=== PATIENT | male | born 1970 | race Caucasian/White ===

== ENCOUNTER 2019-02-04 20:30 | Inpatient (IN) | payer OTHER ==
[~2019-02-04] VITALS: Ht 182.9 cm; Wt 111.6 kg
--- OUTSIDE RECORDS SUMMARY | 2019-02-04 20:36 | XMS REPORT | Clinical Summary ---
Author Author [facility] Address Unknown Phone Unavailable Care Team Providers Care Senior Mortgage Underwriter Name Role Phone Juvenal Forde MD PCP Allergies Not on File Medications Not on file Active Problems Not on file Encounters Care Team Description Date Type Specialty 09/15/2018 Emergency Emergency Medicine Doug Grant MA Referral - Kidney Txp (New MD Consult) 07/22/2018 Telephone Transplant after 02/03/2018 Social History Date Tobacco Use Types Packs/Day Years Used Never Assessed Sex Assigned at Date Recorded Not on file Industry Job Start Date Occupation Not on file Not on file Not on file Travel End Travel History Travel Start No recent travel history available. Last Filed Vital Signs Not on file Plan of Treatment Not on file Results Not on fileafter 02/03/2018 Insurance Type Payer Benefit Subscriber ID Effective Phone Address Plan / Dates Group HMO [employer] [id number] [employer] [place]UR[place] Advance Directives Patient has advance care planning documents on file. For more information, angela melton contact: Samy Duran [address] [place] [address]
--- OUTSIDE RECORDS SUMMARY | 2019-02-04 20:38 | XMS REPORT ---
Author Author [facility] Organization [facility] Address Unknown Phone Unavailable Care Team Providers Care Risk Officer Name Role Phone Unavailable Unavailable Payers Payer Name Policy Type Policy Number Effective Date Expiration Date Problems This patient has no known problems. Allergies, Adverse Reactions, Alerts Allergy Name Allergy Type Status Severity Reaction(s) Onset Date Inactive Date Treating Clinician Comments morphine DA Active [place] 2018-10-14 00:00:00 adhesive tape DA Active U 2018-10-14 00:00:00 morphine DA Active [place] 2018-03-12 00:00:00 adhesive tape DA Active U 2017-11-18 00:00:00 Medications This patient has no known medications. Results Test Description Test Time Test Comments Text Results Atomic Results Result Comments CELIAC DISEASE PANEL 2019-01-26 13:09:00 IMMUNOGLOBULIN A (test code=IGA) 303 mg/dL 90-386 Performed At: [facility] [address] [id number] Young MD Ph:[phone] At: [facility] [address] [id number] Dye MD Ph:[phone] TISSUE TRANSGLUTAMINASE IGA (test code=TTGIGAAB) <2 U/mL 0-3 Negative 0 - 3 Weak Positive 4 - 10 Positive >10 Tissue Transglutaminase (tTG) has been identified as the endomysial antigen. Studies have demonstr- ated that endomysial IgA antibodies have over 99% specificity for gluten sensitive enteropathy. AB ENDOMYSIAL IGA (test code=ENDOMAAB) Negative Negative TISSUE TRANSGLUTAMINASE IGG (test code=TTGIGGAB) <2 U/mL 0-5 Negative 0 - 5 Weak Positive 6 - 9 Positive >9 GLIADIN ANTIBODY, IGG (test code=GLIAB) 4 units 0-19 Negative 0 - 19 Weak Positive 20 - 30 Moderate to Strong Positive >30 GLIADIN ANTIBODY, IGA (test code=GLIAABA) 7 units 0-19 Negative 0 - 19 Weak Positive 20 - 30 Moderate to Strong Positive >30 [id number] 12:14:00* Test Item Value Reference Range Comments GLUBED (test code=GLUBED) 158 mg/dL 74-106 [facility] certified corking [facility] [id number] 08:32:00* Test Item Value Reference Range Comments GLUBED (test code=GLUBED) 175 mg/dL 74-106 Performed by certified corking machine operator at [facility] [id number] 20:10:00* Test Item Value Reference Range Comments GLUBED (test code=GLUBED) 138 mg/dL 74-106 [facility] certified corking machine operator [facility] [id number] 16:10:00* Test Item Value Reference Range Comments GLUBED (test code=GLUBED) 84 mg/dL 74-106 Performed by certified corking machine operator at [facility] [id number] 12:15:00* Test Item Value Reference Range Comments GLUBED (test code=GLUBED) 90 mg/dL 74-106 Performed by certified corking machine operator at [facility] [id number] 09:19:00* Test Item Value Reference Range Comments GLUBED (test code=GLUBED) 121 mg/dL 74-106 Performed by certified corking machine operator at [facility] [id number] 09:19:00* Test Item Value Reference Range Comments GLUBED (test code=GLUBED) 63 mg/dL 74-106 Performed by certified corking machine operator at [facility] [id number] 09:19:00* Test Item Value Reference Range Comments GLUBED (test code=GLUBED) 61 mg/dL 74-106 Performed by certified corking machine operator at [facility] BASIC METABOLIC [id number] 06:31:00* Test Item Value Reference Range Comments SODIUM (test code=NA) 141 mmol/L 136-145 POTASSIUM (test code=K) 4.5 mmol/L 3.5-5.1 CHLORIDE (test code=CL) 104.0 mmol/L 98-107 CARBON DIOXIDE (test code=CO2) 31.0 mmol/L 21-32 ANION GAP (test code=GAP) 10.5 10-20 GLUCOSE (test code=GLU) 64 mg/dL 74-106 BLOOD UREA NITROGEN (test code=BUN) 39 mg/dL 7-18 RESULT VERIFIED BY REPEAT ANALYSIS GLOMERULAR FILTRATION RATE (test code=GFR) 14 mL/min >=60 Estimated GFR by using Modified MDRD formula.Chronic kidney disease is defined as either kidney damageor GFR <60 mL/min/1.73 m2 for >3 months. CREATININE (test code=CREAT) 4.40 mg/dL 0.7-1.3 BUN/CREATININE RATIO (test code=BUN/CREA) 8.9 10-20 CALCIUM (test code=CA) 8.1 mg/dL 8.5-10.1 BASIC METABOLIC [id number] 05:49:00* Test Item Value Reference Range Comments SODIUM (test code=NA) 141 mmol/L 136-145 POTASSIUM (test code=K) 4.5 mmol/L 3.5-5.1 CHLORIDE (test code=CL) 104.0 mmol/L 98-107 CARBON DIOXIDE (test code=CO2) mmol/L 21-32 ANION GAP (test code=GAP) 10-20 GLUCOSE (test code=GLU) mg/dL 74-106 BLOOD UREA NITROGEN (test code=BUN) mg/dL 7-18 GLOMERULAR FILTRATION RATE (test code=GFR) mL/min >=60 CREATININE (test code=CREAT) mg/dL 0.7-1.3 BUN/CREATININE RATIO (test code=BUN/CREA) 10-20 CALCIUM (test code=CA) mg/dL 8.5-10.1 CBC W/MANUAL [id number] 05:43:00* Test Item Value Reference Range Comments WHITE BLOOD CELL (test code=WBC) 11.1 K/mm3 4.5-12.5 RED BLOOD CELL (test code=RBC) 4.05 mill/mm3 4.0-5.8 HEMOGLOBIN (test code=HGB) 12.1 gram/dL 13.0-17.5 HEMATOCRIT (test code=HCT) 36.8 % 42.0-52.0 MEAN CELL VOLUME (test code=MCV) 90.9 fL 80-98 MEAN CELL HGB (test code=MCH) 29.9 picogram 27.0-33.0 MEAN CELL HGB CONCETRATION (test code=MCHC) 32.9 gram/dL 33.0-36.0 RED CELL DISTRIBUTION WIDTH (test code=RDW) 13.4 % 11.6-16.2 RED CELL DISTRIBUTION WIDTH SD (test code=RDW-SD) 44.3 fL 37.0-51.0 PLATELET COUNT (test code=PLT) 134 K/mm3 150-450 MEAN PLATELET VOLUME (test code=MPV) 9.2 fL 6.7-11.0 IMMATURE GRANULOCYTE % (test code=IG%) 0.2 % 0.0-5.0 NUCLEATED RBC % (test code=NRBC%) 0.0 % 0-0 NEUTROPHIL # (test code=NT#) 3.13 K/mm3 1.8-7.7 IMMATURE GRANULOCYTE # (test code=IG#) 0.02 x10 3/uL 0-0.03 LYMPHOCYTE # (test code=LY#) 6.44 K/mm3 1.0-5.0 MONOCYTE # (test code=MO#) 0.85 K/mm3 0-0.8 EOSINOPHIL # (test code=EO#) 0.59 K/mm3 0.0-0.5 BASOPHIL # (test code=BA#) 0.09 K/mm3 0.0-0.2 NUCLEATED RBC # (test code=NRBC#) 0.00 K/mm3 0.0-0.1 MANUAL DIFF REQUIRED (test code=MDIFF) YES STAIN ACCEPTABILITY (test code=STN ACCEPTABLE) STAIN ACCEPTABLE TOTAL CELLS COUNTED (test code=TCC) 112 #CELLS SEGMENTED NEUTROPHILS (test code=SEG) 37.5 % 39-69 BAND NEUTROPHIL (test code=BAND) 0 % 0-10 LYMPHOCYTE (test code=LYMPH) 44.6 % 25-55 REACTIVE LYMPH (test code=RELYMPH) 0 % MONOCYTE (test code=MON) 3.6 % 0-10 EOSINOPHIL (test code=EOS) 13.4 % 0.0-5.0 BASOPHIL (test code=BASO) 0.9 % 0-1.0 METAMYELOCYTE (test code=META) 0 % 0-0 MYELOCYTE (test code=MYELO) 0 % 0.0-0.0 PROMYELOCYTE (test code=PROM) 0 % 0-0 MORPHOLOGY COMMENT (test code=MOC) NORMAL PLATELET ESTIMATE (test code=PLTEST) ADEQUATE PLATELET MORPHOLOGY (test code=PLTMORPH) NORMAL IMMATURE FORMS (test code=IMMAT) 0 % 0-0 CBC W/MANUAL [id number] 05:11:00* Test Item Value Reference Range Comments WHITE BLOOD CELL (test code=WBC) 11.1 K/mm3 4.5-12.5 RED BLOOD CELL (test code=RBC) 4.05 mill/mm3 4.0-5.8 HEMOGLOBIN (test code=HGB) 12.1 gram/dL 13.0-17.5 HEMATOCRIT (test code=HCT) 36.8 % 42.0-52.0 MEAN CELL VOLUME (test code=MCV) 90.9 fL 80-98 MEAN CELL HGB (test code=MCH) 29.9 picogram 27.0-33.0 MEAN CELL HGB CONCETRATION (test code=MCHC) 32.9 gram/dL 33.0-36.0 RED CELL DISTRIBUTION WIDTH (test code=RDW) 13.4 % 11.6-16.2 RED CELL DISTRIBUTION WIDTH SD (test code=RDW-SD) 44.3 fL 37.0-51.0 PLATELET COUNT (test code=PLT) 134 K/mm3 150-450 MEAN PLATELET VOLUME (test code=MPV) 9.2 fL 6.7-11.0 IMMATURE GRANULOCYTE % (test code=IG%) 0.2 % 0.0-5.0 NUCLEATED RBC % (test code=NRBC%) 0.0 % 0-0 NEUTROPHIL # (test code=NT#) 3.13 K/mm3 1.8-7.7 IMMATURE GRANULOCYTE # (test code=IG#) 0.02 x10 3/uL 0-0.03 LYMPHOCYTE # (test code=LY#) 6.44 K/mm3 1.0-5.0 MONOCYTE # (test code=MO#) 0.85 K/mm3 0-0.8 EOSINOPHIL # (test code=EO#) 0.59 K/mm3 0.0-0.5 BASOPHIL # (test code=BA#) 0.09 K/mm3 0.0-0.2 NUCLEATED RBC # (test code=NRBC#) 0.00 K/mm3 0.0-0.1 MANUAL DIFF REQUIRED (test code=MDIFF) YES STAIN ACCEPTABILITY (test code=STN ACCEPTABLE) TOTAL CELLS COUNTED (test code=TCC) #CELLS SEGMENTED NEUTROPHILS (test code=SEG) % 39-69 LYMPHOCYTE (test code=LYMPH) % 25-55 MONOCYTE (test code=MON) % 0-10 EOSINOPHIL (test code=EOS) % 0.0-5.0 CABOT RINGS (test code=CAB) MORPHOLOGY COMMENT (test code=MOC) PLATELET ESTIMATE (test code=PLTEST) PLATELET MORPHOLOGY (test code=PLTMORPH) CBC W/MANUAL [id number] 05:11:00* Test Item Value Reference Range Comments WHITE BLOOD CELL (test code=WBC) 11.1 K/mm3 4.5-12.5 RED BLOOD CELL (test code=RBC) 4.05 mill/mm3 4.0-5.8 HEMOGLOBIN (test code=HGB) 12.1 gram/dL 13.0-17.5 HEMATOCRIT (test code=HCT) 36.8 % 42.0-52.0 MEAN CELL VOLUME (test code=MCV) 90.9 fL 80-98 MEAN CELL HGB (test code=MCH) 29.9 picogram 27.0-33.0 MEAN CELL HGB CONCETRATION (test code=MCHC) 32.9 gram/dL 33.0-36.0 RED CELL DISTRIBUTION WIDTH (test code=RDW) 13.4 % 11.6-16.2 RED CELL DISTRIBUTION WIDTH SD (test code=RDW-SD) 44.3 fL 37.0-51.0 PLATELET COUNT (test code=PLT) 134 K/mm3 150-450 MEAN PLATELET VOLUME (test code=MPV) 9.2 fL 6.7-11.0 IMMATURE GRANULOCYTE % (test code=IG%) 0.2 % 0.0-5.0 NUCLEATED RBC % (test code=NRBC%) 0.0 % 0-0 NEUTROPHIL # (test code=NT#) 3.13 K/mm3 1.8-7.7 IMMATURE GRANULOCYTE # (test code=IG#) 0.02 x10 3/uL 0-0.03 LYMPHOCYTE # (test code=LY#) 6.44 K/mm3 1.0-5.0 MONOCYTE # (test code=MO#) 0.85 K/mm3 0-0.8 EOSINOPHIL # (test code=EO#) 0.59 K/mm3 0.0-0.5 BASOPHIL # (test code=BA#) 0.09 K/mm3 0.0-0.2 NUCLEATED RBC # (test code=NRBC#) 0.00 K/mm3 0.0-0.1 MANUAL DIFF REQUIRED (test code=MDIFF) YES STAIN ACCEPTABILITY (test code=STN ACCEPTABLE) TOTAL CELLS COUNTED (test code=TCC) #CELLS SEGMENTED NEUTROPHILS (test code=SEG) % 39-69 LYMPHOCYTE (test code=LYMPH) % 25-55 MONOCYTE (test code=MON) % 0-10 EOSINOPHIL (test code=EOS) % 0.0-5.0 CABOT RINGS (test code=CAB) MORPHOLOGY COMMENT (test code=MOC) PLATELET ESTIMATE (test code=PLTEST) PLATELET MORPHOLOGY (test code=PLTMORPH) CBC W/MANUAL [id number] 05:11:00* Test Item Value Reference Range Comments WHITE BLOOD CELL (test code=WBC) 11.1 K/mm3 4.5-12.5 RED BLOOD CELL (test code=RBC) 4.05 mill/mm3 4.0-5.8 HEMOGLOBIN (test code=HGB) 12.1 gram/dL 13.0-17.5 HEMATOCRIT (test code=HCT) 36.8 % 42.0-52.0 MEAN CELL VOLUME (test code=MCV) 90.9 fL 80-98 MEAN CELL HGB (test code=MCH) 29.9 picogram 27.0-33.0 MEAN CELL HGB CONCETRATION (test code=MCHC) 32.9 gram/dL 33.0-36.0 RED CELL DISTRIBUTION WIDTH (test code=RDW) 13.4 % 11.6-16.2 RED CELL DISTRIBUTION WIDTH SD (test code=RDW-SD) 44.3 fL 37.0-51.0 PLATELET COUNT (test code=PLT) 134 K/mm3 150-450 MEAN PLATELET VOLUME (test code=MPV) 9.2 fL 6.7-11.0 IMMATURE GRANULOCYTE % (test code=IG%) 0.2 % 0.0-5.0 NUCLEATED RBC % (test code=NRBC%) 0.0 % 0-0 NEUTROPHIL # (test code=NT#) 3.13 K/mm3 1.8-7.7 IMMATURE GRANULOCYTE # (test code=IG#) 0.02 x10 3/uL 0-0.03 LYMPHOCYTE # (test code=LY#) 6.44 K/mm3 1.0-5.0 MONOCYTE # (test code=MO#) 0.85 K/mm3 0-0.8 EOSINOPHIL # (test code=EO#) 0.59 K/mm3 0.0-0.5 BASOPHIL # (test code=BA#) 0.09 K/mm3 0.0-0.2 NUCLEATED RBC # (test code=NRBC#) 0.00 K/mm3 0.0-0.1 MANUAL DIFF REQUIRED (test code=MDIFF) YES STAIN ACCEPTABILITY (test code=STN ACCEPTABLE) TOTAL CELLS COUNTED (test code=TCC) #CELLS SEGMENTED NEUTROPHILS (test code=SEG) % 39-69 LYMPHOCYTE (test code=LYMPH) % 25-55 MONOCYTE (test code=MON) % 0-10 EOSINOPHIL (test code=EOS) % 0.0-5.0 MORPHOLOGY COMMENT (test code=MOC) PLATELET ESTIMATE (test code=PLTEST) PLATELET MORPHOLOGY (test code=PLTMORPH) CBC W/MANUAL [id number] 05:11:00* Test Item Value Reference Range Comments WHITE BLOOD CELL (test code=WBC) 11.1 K/mm3 4.5-12.5 RED BLOOD CELL (test code=RBC) 4.05 mill/mm3 4.0-5.8 HEMOGLOBIN (test code=HGB) 12.1 gram/dL 13.0-17.5 HEMATOCRIT (test code=HCT) 36.8 % 42.0-52.0 MEAN CELL VOLUME (test code=MCV) 90.9 fL 80-98 MEAN CELL HGB (test code=MCH) 29.9 picogram 27.0-33.0 MEAN CELL HGB CONCETRATION (test code=MCHC) 32.9 gram/dL 33.0-36.0 RED CELL DISTRIBUTION WIDTH (test code=RDW) 13.4 % 11.6-16.2 RED CELL DISTRIBUTION WIDTH SD (test code=RDW-SD) 44.3 fL 37.0-51.0 PLATELET COUNT (test code=PLT) 134 K/mm3 150-450 MEAN PLATELET VOLUME (test code=MPV) 9.2 fL 6.7-11.0 IMMATURE GRANULOCYTE % (test code=IG%) 0.2 % 0.0-5.0 NUCLEATED RBC % (test code=NRBC%) 0.0 % 0-0 NEUTROPHIL # (test code=NT#) 3.13 K/mm3 1.8-7.7 IMMATURE GRANULOCYTE # (test code=IG#) 0.02 x10 3/uL 0-0.03 LYMPHOCYTE # (test code=LY#) 6.44 K/mm3 1.0-5.0 MONOCYTE # (test code=MO#) 0.85 K/mm3 0-0.8 EOSINOPHIL # (test code=EO#) 0.59 K/mm3 0.0-0.5 BASOPHIL # (test code=BA#) 0.09 K/mm3 0.0-0.2 NUCLEATED RBC # (test code=NRBC#) 0.00 K/mm3 0.0-0.1 MANUAL DIFF REQUIRED (test code=MDIFF) YES STAIN ACCEPTABILITY (test code=STN ACCEPTABLE) TOTAL CELLS COUNTED (test code=TCC) #CELLS SEGMENTED NEUTROPHILS (test code=SEG) % 39-69 LYMPHOCYTE (test code=LYMPH) % 25-55 MONOCYTE (test code=MON) % 0-10 MORPHOLOGY COMMENT (test code=MOC) PLATELET ESTIMATE (test code=PLTEST) PLATELET MORPHOLOGY (test code=PLTMORPH) CBC W/MANUAL [id number] 05:11:00* Test Item Value Reference Range Comments WHITE BLOOD CELL (test code=WBC) 11.1 K/mm3 4.5-12.5 RED BLOOD CELL (test code=RBC) 4.05 mill/mm3 4.0-5.8 HEMOGLOBIN (test code=HGB) 12.1 gram/dL 13.0-17.5 HEMATOCRIT (test code=HCT) 36.8 % 42.0-52.0 MEAN CELL VOLUME (test code=MCV) 90.9 fL 80-98 MEAN CELL HGB (test code=MCH) 29.9 picogram 27.0-33.0 MEAN CELL HGB CONCETRATION (test code=MCHC) 32.9 gram/dL 33.0-36.0 RED CELL DISTRIBUTION WIDTH (test code=RDW) 13.4 % 11.6-16.2 RED CELL DISTRIBUTION WIDTH SD (test code=RDW-SD) 44.3 fL 37.0-51.0 PLATELET COUNT (test code=PLT) 134 K/mm3 150-450 MEAN PLATELET VOLUME (test code=MPV) 9.2 fL 6.7-11.0 IMMATURE GRANULOCYTE % (test code=IG%) 0.2 % 0.0-5.0 NUCLEATED RBC % (test code=NRBC%) 0.0 % 0-0 NEUTROPHIL # (test code=NT#) 3.13 K/mm3 1.8-7.7 IMMATURE GRANULOCYTE # (test code=IG#) 0.02 x10 3/uL 0-0.03 LYMPHOCYTE # (test code=LY#) 6.44 K/mm3 1.0-5.0 MONOCYTE # (test code=MO#) 0.85 K/mm3 0-0.8 EOSINOPHIL # (test code=EO#) 0.59 K/mm3 0.0-0.5 BASOPHIL # (test code=BA#) 0.09 K/mm3 0.0-0.2 NUCLEATED RBC # (test code=NRBC#) 0.00 K/mm3 0.0-0.1 MANUAL DIFF REQUIRED (test code=MDIFF) YES STAIN ACCEPTABILITY (test code=STN ACCEPTABLE) TOTAL CELLS COUNTED (test code=TCC) #CELLS SEGMENTED NEUTROPHILS (test code=SEG) % 39-69 LYMPHOCYTE (test code=LYMPH) % 25-55 MONOCYTE (test code=MON) % 0-10 EOSINOPHIL (test code=EOS) % 0.0-5.0 CABOT RINGS (test code=CAB) MORPHOLOGY COMMENT (test code=MOC) PLATELET ESTIMATE (test code=PLTEST) PLATELET MORPHOLOGY (test code=PLTMORPH) [id number] 20:52:00* Test Item Value Reference Range Comments GLUBED (test code=GLUBED) 143 mg/dL 74-106 [facility] certified corking machine [facility] [id number] 16:39:00* Test Item Value Reference Range Comments GLUBED (test code=GLUBED) 95 mg/dL 74-106 Performed by certified corking machine operator at [facility] - XR ABDOMEN AP 1 [id number] 11:11:00 FAX: Juvenal Holloway MD [phone] Jones: St: ADM FAX: Alvina Irvin MD [phone] Name: SYEDA POWERS [facility] : 1970 Age/S: 48/M [address] [facility] Unit #: [id number] Loc: V.4[address] [place] [address] Phys: Alvina Pike MD Acct: [id number] Dis Date: Status: ADM IN PHONE #: [phone] Exam Date: 01/22/2019 1055 FAX #: [phone] Reason: abdominal pain EXAMS: CPT CODE: [id number] XR ABDOMEN AP 1 V [id number] HISTORY: Abdominal pain. CT abdomen and pelvis from January 20, 2019. Patient is post cholecystectomy. Constipation. No bowel obstruction. No pathologic calcifications. IMPRESSI ON: No bowel obstruction. Constipation. Electronic ally Signed by Nida Velasquez on 01/22/2019 at 1111 R eported and signed by: Manish Velasquez M.D. CC: Juvenal Forde MD; Alvina Pike MD Technologist: JOSELYN VAZQUEZ RT( R) Trnscrd Date/Time/By: 01/22/2019 (1111) : By: [email or web address] Orig Print D/T: S: 01/22/2019 (1115) PAGE 1 Signed Report [id number] 08:16:00* Test Item Value Reference Range Comments GLUBED (test code=GLUBED) 162 mg/dL 74-106 Performed by certified corking machine operator at [facility] COMPREHENSIVE METABOLIC [id number] 06:30:00* Test Item Value Reference Range Comments SODIUM (test code=NA) 139 mmol/L 136-145 POTASSIUM (test code=K) 5.2 mmol/L 3.5-5.1 CHLORIDE (test code=CL) 110.0 mmol/L 98-107 CARBON DIOXIDE (test code=CO2) 21.0 mmol/L 21-32 ANION GAP (test code=GAP) 13.2 10-20 GLUCOSE (test code=GLU) 181 mg/dL 74-106 BLOOD UREA NITROGEN (test code=BUN) 75 mg/dL 7-18 RESULT VERIFIED BY REPEAT ANALYSIS GLOMERULAR FILTRATION RATE (test code=GFR) 9 mL/min >=60 Estimated GFR by using Modified MDRD formula.Chronic kidney disease is defined as either kidney damageor GFR <60 mL/min/1.73 m2 for >3 months. CREATININE (test code=CREAT) 6.50 mg/dL 0.7-1.3 BUN/CREATININE RATIO (test code=BUN/CREA) 11.5 10-20 TOTAL PROTEIN (test code=PROT) 6.6 gram/dL 6.4-8.2 ALBUMIN (test code=ALB) 3.0 g/dL 3.4-5.0 GLOBULIN (test code=GLOB) 3.6 gram/dL 2.7-4.2 ALBUMIN/GLOBULIN RATIO (test code=A/G) 0.8 0.75-1.50 CALCIUM (test code=CA) 7.7 mg/dL 8.5-10.1 BILIRUBIN TOTAL (test code=BILT) 0.20 mg/dL 0.0-1.0 SGOT/AST (test code=AST) 10 IUnit/L 15-37 SGPT/ALT (test code=ALT) 12 IUnit/L 12-78 ALKALINE PHOSPHATASE TOTAL (test code=ALKP) 78 IUnit/L 45-117 Note change in reference range due to change in reagent. LIPID PROFILE (CORONARY RISK)2019-01-22 06:30:00* Test Item Value Reference Range Comments TRIGLYCERIDES (test code=TRIG) 185 mg/dL 20-150 CHOLESTEROL (test code=CHOL) 142 mg/dL 0-200 CHOLESTEROL/HDL RATIO (test code=CHOLHDL) 5.0 RATIO 0-4.9 RISK ASSOCIATED WITH CHOL/HDL RATIOS: Risk Male Female1/2 AVERAGE 3.43 3.27AVERAGE 4.97 4.442X AVERAGE 9.55 7.053X AVERAGE 23.39 11.04 REFERENCE VALUE IS RELATED TO RISK LEVELS ASRECOMMENDED BY THE JORDYN. HEART, LUNG, AND BLOOD INST. HDL CHOLESTEROL (test code=HDL) 25 mg/dL 40-60 LIPOPROTEIN LDL (test code=LDL) 97 mg/dL 100-129 Reference Interval: mg/dL mmol/L Optimal <100 <2.6Near/above optimal 100-129 2.6- 3.3Borderline High 130-159 3.4-4.1High 160-189 4.1-4.9Very High >=190 >=4.9=========This LDL result is a direct measurement.========= [id number] 06:30:00* Test Item Value Reference Range Comments PHOSPHORUS (test code=PHOS) 8.6 mg/dL 2.5-4.9 [id number] 06:30:00* Test Item Value Reference Range Comments MAGNESIUM (test code=MAG) 2.2 mg/dL 1.8-2.4 COMPREHENSIVE METABOLIC [id number] 06:01:00* Test Item Value Reference Range Comments SODIUM (test code=NA) 139 mmol/L 136-145 POTASSIUM (test code=K) 5.2 mmol/L 3.5-5.1 CHLORIDE (test code=CL) 110.0 mmol/L 98-107 CARBON DIOXIDE (test code=CO2) mmol/L 21-32 ANION GAP (test code=GAP) 10-20 GLUCOSE (test code=GLU) mg/dL 74-106 BLOOD UREA NITROGEN (test code=BUN) mg/dL 7-18 GLOMERULAR FILTRATION RATE (test code=GFR) mL/min >=60 CREATININE (test code=CREAT) mg/dL 0.7-1.3 BUN/CREATININE RATIO (test code=BUN/CREA) 10-20 TOTAL PROTEIN (test code=PROT) gram/dL 6.4-8.2 ALBUMIN (test code=ALB) g/dL 3.4-5.0 GLOBULIN (test code=GLOB) gram/dL 2.7-4.2 ALBUMIN/GLOBULIN RATIO (test code=A/G) 0.75-1.50 CALCIUM (test code=CA) mg/dL 8.5-10.1 BILIRUBIN TOTAL (test code=BILT) mg/dL 0.0-1.0 SGOT/AST (test code=AST) IUnit/L 15-37 SGPT/ALT (test code=ALT) IUnit/L 12-78 ALKALINE PHOSPHATASE TOTAL (test code=ALKP) IUnit/L 45-117 LIPID PROFILE (CORONARY RISK)2019-01-22 06:01:00* Test Item Value Reference Range Comments TRIGLYCERIDES (test code=TRIG) mg/dL 20-150 CHOLESTEROL (test code=CHOL) mg/dL 0-200 CHOLESTEROL/HDL RATIO (test code=CHOLHDL) RATIO 0-4.9 HDL CHOLESTEROL (test code=HDL) mg/dL 40-60 LIPOPROTEIN LDL (test code=LDL) mg/dL 100-129 [id number] 06:01:00* Test Item Value Reference Range Comments PHOSPHORUS (test code=PHOS) mg/dL 2.5-4.9 [id number] 06:01:00* Test Item Value Reference Range Comments MAGNESIUM (test code=MAG) mg/dL 1.8-2.4 [id number] 06:01:00* Test Item Value Reference Range Comments GLYCOSYLATED HEMOGLOBIN (HA1C) (test code=GLYHGB) 5.7 % HbA1 4.8-6.0 ESTIMATED AVERAGE GLUCOSE (test code=EAG) 117 MG/DL CBC W/AUTO [id number] 05:52:00* Test Item Value Reference Range Comments WHITE BLOOD CELL (test code=WBC) 7.4 K/mm3 4.5-12.5 RED BLOOD CELL (test code=RBC) 3.73 mill/mm3 4.0-5.8 HEMOGLOBIN (test code=HGB) 11.2 gram/dL 13.0-17.5 HEMATOCRIT (test code=HCT) 35.2 % 42.0-52.0 MEAN CELL VOLUME (test code=MCV) 94.4 fL 80-98 MEAN CELL HGB (test code=MCH) 30.0 picogram 27.0-33.0 MEAN CELL HGB CONCETRATION (test code=MCHC) 31.8 gram/dL 33.0-36.0 RED CELL DISTRIBUTION WIDTH (test code=RDW) 13.6 % 11.6-16.2 RED CELL DISTRIBUTION WIDTH SD (test code=RDW-SD) 47.1 fL 37.0-51.0 PLATELET COUNT (test code=PLT) 111 K/mm3 150-450 MEAN PLATELET VOLUME (test code=MPV) 9.6 fL 6.7-11.0 NEUTROPHIL % (test code=NT%) 31.3 % 39.0-69.0 IMMATURE GRANULOCYTE % (test code=IG%) 0.3 % 0.0-5.0 LYMPHOCYTE % (test code=LY%) 53.1 % 25.0-55.0 MONOCYTE % (test code=MO%) 8.1 % 0.0-10.0 EOSINOPHIL % (test code=EO%) 6.4 % 0.0-5.0 BASOPHIL % (test code=BA%) 0.8 % 0.0-1.0 NUCLEATED RBC % (test code=NRBC%) 0.0 % 0-0 NEUTROPHIL # (test code=NT#) 2.31 K/mm3 1.8-7.7 IMMATURE GRANULOCYTE # (test code=IG#) 0.02 x10 3/uL 0-0.03 LYMPHOCYTE # (test code=LY#) 3.92 K/mm3 1.0-5.0 MONOCYTE # (test code=MO#) 0.60 K/mm3 0-0.8 EOSINOPHIL # (test code=EO#) 0.47 K/mm3 0.0-0.5 BASOPHIL # (test code=BA#) 0.06 K/mm3 0.0-0.2 NUCLEATED RBC # (test code=NRBC#) 0.00 K/mm3 0.0-0.1 [id number] 21:02:00* Test Item Value Reference Range Comments GLUBED (test code=GLUBED) 129 mg/dL 74-106 Performed by certified corking machine operator at [facility] [id number] 16:22:00* Test Item Value Reference Range Comments GLUBED (test code=GLUBED) 137 mg/dL 74-106 Performed by certified corking machine operator at [facility] [id number] 11:28:00* Test Item Value Reference Range Comments GLUBED (test code=GLUBED) 121 mg/dL 74-106 Performed by certified corking machine operator at [facility] [id number] 08:29:00* Test Item Value Reference Range Comments GLUBED (test code=GLUBED) 114 mg/dL 74-106 Performed by certified corking machine operator at [facility] BASIC METABOLIC [id number] 07:05:00* Test Item Value Reference Range Comments SODIUM (test code=NA) 143 mmol/L 136-145 POTASSIUM (test code=K) 4.8 mmol/L 3.5-5.1 CHLORIDE (test code=CL) 109.0 mmol/L 98-107 CARBON DIOXIDE (test code=CO2) 27.0 mmol/L 21-32 ANION GAP (test code=GAP) 11.8 10-20 GLUCOSE (test code=GLU) 138 mg/dL 74-106 BLOOD UREA NITROGEN (test code=BUN) 60 mg/dL 7-18 RESULT VERIFIED BY REPEAT ANALYSIS GLOMERULAR FILTRATION RATE (test code=GFR) 11 mL/min >=60 Estimated GFR by using Modified MDRD formula.Chronic kidney disease is defined as either kidney damageor GFR <60 mL/min/1.73 m2 for >3 months. CREATININE (test code=CREAT) 5.60 mg/dL 0.7-1.3 BUN/CREATININE RATIO (test code=BUN/CREA) 10.7 10-20 CALCIUM (test code=CA) 8.0 mg/dL 8.5-10.1 BASIC METABOLIC [id number] 06:55:00* Test Item Value Reference Range Comments SODIUM (test code=NA) 143 mmol/L 136-145 POTASSIUM (test code=K) 4.8 mmol/L 3.5-5.1 CHLORIDE (test code=CL) 109.0 mmol/L 98-107 CARBON DIOXIDE (test code=CO2) mmol/L 21-32 ANION GAP (test code=GAP) 10-20 GLUCOSE (test code=GLU) mg/dL 74-106 BLOOD UREA NITROGEN (test code=BUN) mg/dL 7-18 GLOMERULAR FILTRATION RATE (test code=GFR) mL/min >=60 CREATININE (test code=CREAT) mg/dL 0.7-1.3 BUN/CREATININE RATIO (test code=BUN/CREA) 10-20 CALCIUM (test code=CA) mg/dL 8.5-10.1 CBC W/O [id number] 06:42:00* Test Item Value Reference Range Comments WHITE BLOOD CELL (test code=WBC) 8.2 K/mm3 4.5-12.5 RED BLOOD CELL (test code=RBC) 3.88 mill/mm3 4.0-5.8 HEMOGLOBIN (test code=HGB) 11.7 gram/dL 13.0-17.5 HEMATOCRIT (test code=HCT) 35.5 % 42.0-52.0 MEAN CELL VOLUME (test code=MCV) 91.5 fL 80-98 MEAN CELL HGB (test code=MCH) 30.2 picogram 27.0-33.0 MEAN CELL HGB CONCETRATION (test code=MCHC) 33.0 gram/dL 33.0-36.0 RED CELL DISTRIBUTION WIDTH (test code=RDW) 13.6 % 11.6-16.2 PLATELET COUNT (test code=PLT) 113 K/mm3 150-450 MEAN PLATELET VOLUME (test code=MPV) 9.8 fL 6.7-11.0 SED RATE [id number] 02:29:00* Test Item Value Reference Range Comments SED RATE WESTERGREN (test code=SEDW) 33 mm/hr 0-15 SED [id number] 02:29:00* Test Item Value Reference Range Comments SED RATE (test code=SEDW) 33 mm/hr 0-15 WINTROBE METHOD: NORMAL RANGE FOR MEN: 0-9 MM/HR WOMAN: 0-20 MM/HR [id number] 22:58:00* Test Item Value Reference Range Comments GLUBED (test code=GLUBED) 161 mg/dL 74-106 Performed by certified corking machine operator at [facility] AG HEPAT B [id number] 20:51:00* Test Item Value Reference Range Comments AG HEPAT B SURF (test code=HBSAG) Nonreactive Index Nonreactive B-TYPE NATRIURETIC [id number] 19:52:00* Test Item Value Reference Range Comments B-TYPE NATRIURETIC PEPTIDE (test code=BNP) 555.04 pgram/mL 0-100 Has Patient received Natrecor? NOPROTHROMBIN [id number] 19:41:00* Test Item Value Reference Range Comments PROTHROMBIN TIME PATIENT (test code=PTP) 11.7 seconds 9.0-14.0 INTERNATIONAL NORMAL RATIO (test code=INR) 1.0 0.8-1.2 The therapeutic range for oral anticoagulant therapy formost indications is an international normalized ratio (INR)of between 2.0 and 3.0. The recommended therapeutic INRrange for various clinical situations is listed below: Clinical Situation INR range Pulmonary e mbolism treatment (2.0-3.0)Venous thrombosis treatmentVenous thrombosis prophylaxis (high risk surgery)Prevention of systemic embolism from: Acute myocardial infarction Valvular heart disease Atrial fibrillation Mechanical prosthetic heart valves (2.5-3.5) IS PATIENT ON ANTICOAGULANTS? NTHROMBOPLASTIN TIME [id number] 19:41:00* Test Item Value Reference Range Comments THROMBOPLASTIN TIME PARTIAL (test code=PTT) 32.8 seconds 25.0-36.5 IS PATIENT ON ANTICOAGULANTS? N- CT ABD PELVIS W/O [id number] 19:29:00 Name: SYEDA POWERS [facility] : 1970 Age/S: 48 / M [address] [facility] Unit #: [id number] Loc: MADDIE Mcdonald [address] Phys: Juvenal Forde MD Acct: [id number] Dis Date: Status: ADM IN PHONE #: Exam Date: 01/20/20191831 FAX #: Reason: INTRACTABLE DIARRHEA/POSSIBLE CDIFF EXAMS: CPT CODE: [id number] CT ABD PELVIS W/O CONT [id number] REASON FOR EXAM: INTRACTA BLE DIARRHEA/POSSIBLE CDIFF EXAM ORDER DATE: 01/20/2019 5:40 PM Ordering MTracyDTracy: Juvenal Forde MD PROCEDURE: - CT ABD PE LVIS W/O CONT noncontrast axial CT images were acquired through the abdom en/pelvis at 5 mm intervals. Sagittal and coronal reformatted images were generated. Automated exposure control was utilized for this reduction. Phases of contrast: None COMPARISON: Noncontrast CT of the abdomen and pelvis November 11, 2018 FINDINGS: The absence of IV contrast limits sensitivity of this exam for the detection o f soft tissue pathology Visualized thorax: Lung bases are clear. A therosclerotic disease is present in the coronary arteries. Hepatobiliary system: Prior cholecystectomy. Pancreas: Grossly nor mal. Spleen: Grossly normal. Adrenal glands: Grossly normal. Genitourinary system: Grossly normal. Gastr ointestinal tract and appendix: Surgical sutures are seen in the distal co donya (). There are also postsurgical changes of segmental small bowel r esection at multiple locations ( and ). Appendix is within normal limits. No abnormal small bowel distention. There is no mural thickening o f the colon that would be expected with an infectious or inflammatory coli tis. A short segment of small bowel herniates through a defect in the ante rior abdominal wall (). Abdominal vascular structures: Atheros clerotic disease is scattered throughout the abdominal aorta and iliac art eries. Peritoneum and retroperitoneum: No free fluid or free air. No omental PAGE 1 Signed Report ( CONTINUED) Name: SYEDA POWERS [facility] : 1970 Age/S: 48 / M [address] nit #: [id number] Loc: MADDIE Mcdonald [address] Phys: Juvenal Forde MD Acct: [id number] Dis Date: Status: ADM IN PHONE #: [phone] Exam Date: 01/20/20191831 FAX #: [phone] Reason: INTRACTABLE DIARRHEA/POSSIBLE CDIFF EXAMS: CPT CODE: [id number] CT ABD PELVIS W/O CONT [id number] <Continued> or mesenteric masses. No abnormal lymph nodes. Musculoskeletal structures and abdominal wall: Degenerative changes are present in the spine and there is degenerative disc disease at L1-L2 and L4-L5. There is also a defect in the anterior infraumbilical abdominal wall to the imme diate right of the midline which contains a short segment of small bowel. No distention of the small bowel proximally to suggest obstruction. IMPRESSION: No colonic wall thickening that would be expected with an infectious or inflammatory colitis. Postsurgical changes of partial small bowel and colonic resection with anastomotic sutures as described above. Infraumbilical ventral hernia containing a loop of sm all bowel. No distention of the small bowel proximally to suggest obstru ction. at 192 Reported and signed by: Miller Gutierrez MD CC: Juvenal Forde MD Technologist:Courtney Jacob RT(R); NILSON Burnett CTDI: DLP: Trnscb Date/Time: 01/20/2019 (1928) [email or web address] Orig Print D/T: S: 01/20/2019 (1931) PAGE 2 Signed Report COMPREHENSIVE METABOLIC [id number] 19:16:00* Test Item Value Reference Range Comments SODIUM (test code=NA) 142 mmol/L 136-145 POTASSIUM (test code=K) 6.3 mmol/L 3.5-5.1 Results called to [id number] by [facility] 01/20/19 1916Critical results verified and read back by Nurse? Y CHLORIDE (test code=CL) 113.0 mmol/L 98-107 CARBON DIOXIDE (test code=CO2) 21.0 mmol/L 21-32 ANION GAP (test code=GAP) 14.3 10-20 GLUCOSE (test code=GLU) 116 mg/dL 74-106 BLOOD UREA NITROGEN (test code=BUN) 81 mg/dL 7-18 GLOMERULAR FILTRATION RATE (test code=GFR) 8 mL/min >=60 Estimated GFR by using Modified MDRD formula.Chronic kidney disease is defined as either kidney damageor GFR <60 mL/min/1.73 m2 for >3 months. CREATININE (test code=CREAT) 7.30 mg/dL 0.7-1.3 BUN/CREATININE RATIO (test code=BUN/CREA) 11.1 10-20 TOTAL PROTEIN (test code=PROT) 6.6 gram/dL 6.4-8.2 ALBUMIN (test code=ALB) 3.2 g/dL 3.4-5.0 GLOBULIN (test code=GLOB) 3.4 gram/dL 2.7-4.2 ALBUMIN/GLOBULIN RATIO (test code=A/G) 0.9 0.75-1.50 CALCIUM (test code=CA) 7.8 mg/dL 8.5-10.1 BILIRUBIN TOTAL (test code=BILT) 0.40 mg/dL 0.0-1.0 SGOT/AST (test code=AST) 12 IUnit/L 15-37 SGPT/ALT (test code=ALT) 14 IUnit/L 12-78 ALKALINE PHOSPHATASE TOTAL (test code=ALKP) 89 IUnit/L 45-117 Note change in reference range due to change in reagent. C REACTIVE [id number] 19:15:00* Test Item Value Reference Range Comments C REACTIVE PROTEIN (test code=CRP) 0.66 mg/dL 0-0.3 CBC W/AUTO [id number] 19:14:00* Test Item Value Reference Range Comments WHITE BLOOD CELL (test code=WBC) 8.1 K/mm3 4.5-12.5 RED BLOOD CELL (test code=RBC) 3.72 mill/mm3 4.0-5.8 HEMOGLOBIN (test code=HGB) 11.1 gram/dL 13.0-17.5 HEMATOCRIT (test code=HCT) 34.5 % 42.0-52.0 MEAN CELL VOLUME (test code=MCV) 92.7 fL 80-98 MEAN CELL HGB (test code=MCH) 29.8 picogram 27.0-33.0 MEAN CELL HGB CONCETRATION (test code=MCHC) 32.2 gram/dL 33.0-36.0 RED CELL DISTRIBUTION WIDTH (test code=RDW) 13.7 % 11.6-16.2 RED CELL DISTRIBUTION WIDTH SD (test code=RDW-SD) 46.1 fL 37.0-51.0 PLATELET COUNT (test code=PLT) 121 K/mm3 150-450 MEAN PLATELET VOLUME (test code=MPV) 9.6 fL 6.7-11.0 NEUTROPHIL % (test code=NT%) 36.6 % 39.0-69.0 IMMATURE GRANULOCYTE % (test code=IG%) 0.2 % 0.0-5.0 LYMPHOCYTE % (test code=LY%) 50.2 % 25.0-55.0 MONOCYTE % (test code=MO%) 7.1 % 0.0-10.0 EOSINOPHIL % (test code=EO%) 5.3 % 0.0-5.0 BASOPHIL % (test code=BA%) 0.6 % 0.0-1.0 NUCLEATED RBC % (test code=NRBC%) 0.0 % 0-0 NEUTROPHIL # (test code=NT#) 2.95 K/mm3 1.8-7.7 IMMATURE GRANULOCYTE # (test code=IG#) 0.02 x10 3/uL 0-0.03 LYMPHOCYTE # (test code=LY#) 4.06 K/mm3 1.0-5.0 MONOCYTE # (test code=MO#) 0.57 K/mm3 0-0.8 EOSINOPHIL # (test code=EO#) 0.43 K/mm3 0.0-0.5 BASOPHIL # (test code=BA#) 0.05 K/mm3 0.0-0.2 NUCLEATED RBC # (test code=NRBC#) 0.00 K/mm3 0.0-0.1 [id number] 19:01:00* Test Item Value Reference Range Comments AMYLASE (test code=NICKOLAS) 74 Unit/L 25-115 [id number] 19:01:00* Test Item Value Reference Range Comments LIPASE (test code=LIP) 210 U/L 73.0-393.0 [id number] 17:46:00* Test Item Value Reference Range Comments GLUBED (test code=GLUBED) 111 mg/dL 74-106 Performed by certified corking machine operator at [facility] CBC W/MANUAL [id number] 10:57:00* Test Item Value Reference Range Comments WHITE BLOOD CELL (test code=WBC) 10.2 K/mm3 4.5-12.5 RED BLOOD CELL (test code=RBC) 3.27 mill/mm3 4.0-5.8 HEMOGLOBIN (test code=HGB) 9.7 gram/dL 13.0-17.5 HEMATOCRIT (test code=HCT) 30.0 % 42.0-52.0 MEAN CELL VOLUME (test code=MCV) 91.7 fL 80-98 MEAN CELL HGB (test code=MCH) 29.7 picogram 27.0-33.0 MEAN CELL HGB CONCETRATION (test code=MCHC) 32.3 gram/dL 33.0-36.0 RED CELL DISTRIBUTION WIDTH (test code=RDW) 12.8 % 11.6-16.2 RED CELL DISTRIBUTION WIDTH SD (test code=RDW-SD) 42.7 fL 37.0-51.0 PLATELET COUNT (test code=PLT) 103 K/mm3 150-450 MEAN PLATELET VOLUME (test code=MPV) 9.5 fL 6.7-11.0 IMMATURE GRANULOCYTE % (test code=IG%) 0.3 % 0.0-5.0 NUCLEATED RBC % (test code=NRBC%) 0.0 % 0-0 NEUTROPHIL # (test code=NT#) 2.88 K/mm3 1.8-7.7 IMMATURE GRANULOCYTE # (test code=IG#) 0.03 x10 3/uL 0-0.03 LYMPHOCYTE # (test code=LY#) 6.20 K/mm3 1.0-5.0 MONOCYTE # (test code=MO#) 0.80 K/mm3 0-0.8 EOSINOPHIL # (test code=EO#) 0.26 K/mm3 0.0-0.5 BASOPHIL # (test code=BA#) 0.05 K/mm3 0.0-0.2 NUCLEATED RBC # (test code=NRBC#) 0.00 K/mm3 0.0-0.1 MANUAL DIFF REQUIRED (test code=MDIFF) YES STAIN ACCEPTABILITY (test code=STN ACCEPTABLE) STAIN ACCEPTABLE TOTAL CELLS COUNTED (test code=TCC) 100 #CELLS SEGMENTED NEUTROPHILS (test code=SEG) 34 % 39-69 LYMPHOCYTE (test code=LYMPH) 59 % 25-55 MONOCYTE (test code=MON) 7 % 0-10 BASOPHILIC STIPPLING (test code=STP) 1+ PLATELET ESTIMATE (test code=PLTEST) DECREASED PLATELET MORPHOLOGY (test code=PLTMORPH) NORMAL PT REFUSE NOTIFIED RADHA [email or web address] 12/21/18 0611CBC W/MANUAL [id number] 10:52:00* Test Item Value Reference Range Comments WHITE BLOOD CELL (test code=WBC) 10.2 K/mm3 4.5-12.5 RED BLOOD CELL (test code=RBC) 3.27 mill/mm3 4.0-5.8 HEMOGLOBIN (test code=HGB) 9.7 gram/dL 13.0-17.5 HEMATOCRIT (test code=HCT) 30.0 % 42.0-52.0 MEAN CELL VOLUME (test code=MCV) 91.7 fL 80-98 MEAN CELL HGB (test code=MCH) 29.7 picogram 27.0-33.0 MEAN CELL HGB CONCETRATION (test code=MCHC) 32.3 gram/dL 33.0-36.0 RED CELL DISTRIBUTION WIDTH (test code=RDW) 12.8 % 11.6-16.2 RED CELL DISTRIBUTION WIDTH SD (test code=RDW-SD) 42.7 fL 37.0-51.0 PLATELET COUNT (test code=PLT) 103 K/mm3 150-450 MEAN PLATELET VOLUME (test code=MPV) 9.5 fL 6.7-11.0 IMMATURE GRANULOCYTE % (test code=IG%) 0.3 % 0.0-5.0 NUCLEATED RBC % (test code=NRBC%) 0.0 % 0-0 NEUTROPHIL # (test code=NT#) 2.88 K/mm3 1.8-7.7 IMMATURE GRANULOCYTE # (test code=IG#) 0.03 x10 3/uL 0-0.03 LYMPHOCYTE # (test code=LY#) 6.20 K/mm3 1.0-5.0 MONOCYTE # (test code=MO#) 0.80 K/mm3 0-0.8 EOSINOPHIL # (test code=EO#) 0.26 K/mm3 0.0-0.5 BASOPHIL # (test code=BA#) 0.05 K/mm3 0.0-0.2 NUCLEATED RBC # (test code=NRBC#) 0.00 K/mm3 0.0-0.1 MANUAL DIFF REQUIRED (test code=MDIFF) YES STAIN ACCEPTABILITY (test code=STN ACCEPTABLE) STAIN ACCEPTABLE TOTAL CELLS COUNTED (test code=TCC) 100 #CELLS SEGMENTED NEUTROPHILS (test code=SEG) 34 % 39-69 LYMPHOCYTE (test code=LYMPH) 59 % 25-55 MONOCYTE (test code=MON) 7 % 0-10 BASOPHILIC STIPPLING (test code=STP) 1+ MORPHOLOGY COMMENT (test code=MOC) PLATELET ESTIMATE (test code=PLTEST) DECREASED PLATELET MORPHOLOGY (test code=PLTMORPH) NORMAL PT REFUSE NOTIFIED RADHA [email or web address] 12/21/1811[facility] METABOLIC PANEL 2018-12-21 09:48:00* Test Item Value Reference Range Comments SODIUM (test code=NA) 136 mmol/L 136-145 POTASSIUM (test code=K) 5.8 mmol/L 3.5-5.1 CHLORIDE (test code=CL) 102.0 mmol/L 98-107 CARBON DIOXIDE (test code=CO2) 25.0 mmol/L 21-32 ANION GAP (test code=GAP) 14.8 10-20 GLUCOSE (test code=GLU) 135 mg/dL 74-106 BLOOD UREA NITROGEN (test code=BUN) 74 mg/dL 7-18 GLOMERULAR FILTRATION RATE (test code=GFR) 7 mL/min >=60 Estimated GFR by using Modified MDRD formula.Chronic kidney disease is defined as either kidney damageor GFR <60 mL/min/1.73 m2 for >3 months. CREATININE (test code=CREAT) 8.50 mg/dL 0.7-1.3 BUN/CREATININE RATIO (test code=BUN/CREA) 8.7 10-20 CALCIUM (test code=CA) 7.6 mg/dL 8.5-10.1 PT REFUSE NOTIFIED RADHA [email or web address] 12/21/1811[facility] METABOLIC PANEL 2018-12-21 09:42:00* Test Item Value Reference Range Comments SODIUM (test code=NA) 136 mmol/L 136-145 POTASSIUM (test code=K) 5.8 mmol/L 3.5-5.1 CHLORIDE (test code=CL) 102.0 mmol/L 98-107 CARBON DIOXIDE (test code=CO2) mmol/L 21-32 ANION GAP (test code=GAP) 10-20 GLUCOSE (test code=GLU) mg/dL 74-106 BLOOD UREA NITROGEN (test code=BUN) mg/dL 7-18 GLOMERULAR FILTRATION RATE (test code=GFR) mL/min >=60 CREATININE (test code=CREAT) mg/dL 0.7-1.3 BUN/CREATININE RATIO (test code=BUN/CREA) 10-20 CALCIUM (test code=CA) mg/dL 8.5-10.1 PT REFUSE NOTIFIED RADHA HENNING@[email or web address] 12/21/18 0611CBC W/MANUAL [id number] 09:37:00* Test Item Value Reference Range Comments WHITE BLOOD CELL (test code=WBC) 10.2 K/mm3 4.5-12.5 RED BLOOD CELL (test code=RBC) 3.27 mill/mm3 4.0-5.8 HEMOGLOBIN (test code=HGB) 9.7 gram/dL 13.0-17.5 HEMATOCRIT (test code=HCT) 30.0 % 42.0-52.0 MEAN CELL VOLUME (test code=MCV) 91.7 fL 80-98 MEAN CELL HGB (test code=MCH) 29.7 picogram 27.0-33.0 MEAN CELL HGB CONCETRATION (test code=MCHC) 32.3 gram/dL 33.0-36.0 RED CELL DISTRIBUTION WIDTH (test code=RDW) 12.8 % 11.6-16.2 RED CELL DISTRIBUTION WIDTH SD (test code=RDW-SD) 42.7 fL 37.0-51.0 PLATELET COUNT (test code=PLT) 103 K/mm3 150-450 MEAN PLATELET VOLUME (test code=MPV) 9.5 fL 6.7-11.0 IMMATURE GRANULOCYTE % (test code=IG%) 0.3 % 0.0-5.0 NUCLEATED RBC % (test code=NRBC%) 0.0 % 0-0 NEUTROPHIL # (test code=NT#) 2.88 K/mm3 1.8-7.7 IMMATURE GRANULOCYTE # (test code=IG#) 0.03 x10 3/uL 0-0.03 LYMPHOCYTE # (test code=LY#) 6.20 K/mm3 1.0-5.0 MONOCYTE # (test code=MO#) 0.80 K/mm3 0-0.8 EOSINOPHIL # (test code=EO#) 0.26 K/mm3 0.0-0.5 BASOPHIL # (test code=BA#) 0.05 K/mm3 0.0-0.2 NUCLEATED RBC # (test code=NRBC#) 0.00 K/mm3 0.0-0.1 MANUAL DIFF REQUIRED (test code=MDIFF) YES STAIN ACCEPTABILITY (test code=STN ACCEPTABLE) TOTAL CELLS COUNTED (test code=TCC) #CELLS SEGMENTED NEUTROPHILS (test code=SEG) % 39-69 LYMPHOCYTE (test code=LYMPH) % 25-55 MONOCYTE (test code=MON) % 0-10 EOSINOPHIL (test code=EOS) % 0.0-5.0 CABOT RINGS (test code=CAB) MORPHOLOGY COMMENT (test code=MOC) PLATELET ESTIMATE (test code=PLTEST) PLATELET MORPHOLOGY (test code=PLTMORPH) PT REFUSE NOTIFIED RN MILADY@[email or web address] 12/21/18 0611CBC W/MANUAL [id number] 09:37:00* Test Item Value Reference Range Comments WHITE BLOOD CELL (test code=WBC) 10.2 K/mm3 4.5-12.5 RED BLOOD CELL (test code=RBC) 3.27 mill/mm3 4.0-5.8 HEMOGLOBIN (test code=HGB) 9.7 gram/dL 13.0-17.5 HEMATOCRIT (test code=HCT) 30.0 % 42.0-52.0 MEAN CELL VOLUME (test code=MCV) 91.7 fL 80-98 MEAN CELL HGB (test code=MCH) 29.7 picogram 27.0-33.0 MEAN CELL HGB CONCETRATION (test code=MCHC) 32.3 gram/dL 33.0-36.0 RED CELL DISTRIBUTION WIDTH (test code=RDW) 12.8 % 11.6-16.2 RED CELL DISTRIBUTION WIDTH SD (test code=RDW-SD) 42.7 fL 37.0-51.0 PLATELET COUNT (test code=PLT) 103 K/mm3 150-450 MEAN PLATELET VOLUME (test code=MPV) 9.5 fL 6.7-11.0 IMMATURE GRANULOCYTE % (test code=IG%) 0.3 % 0.0-5.0 NUCLEATED RBC % (test code=NRBC%) 0.0 % 0-0 NEUTROPHIL # (test code=NT#) 2.88 K/mm3 1.8-7.7 IMMATURE GRANULOCYTE # (test code=IG#) 0.03 x10 3/uL 0-0.03 LYMPHOCYTE # (test code=LY#) 6.20 K/mm3 1.0-5.0 MONOCYTE # (test code=MO#) 0.80 K/mm3 0-0.8 EOSINOPHIL # (test code=EO#) 0.26 K/mm3 0.0-0.5 BASOPHIL # (test code=BA#) 0.05 K/mm3 0.0-0.2 NUCLEATED RBC # (test code=NRBC#) 0.00 K/mm3 0.0-0.1 MANUAL DIFF REQUIRED (test code=MDIFF) YES STAIN ACCEPTABILITY (test code=STN ACCEPTABLE) TOTAL CELLS COUNTED (test code=TCC) #CELLS SEGMENTED NEUTROPHILS (test code=SEG) % 39-69 LYMPHOCYTE (test code=LYMPH) % 25-55 MONOCYTE (test code=MON) % 0-10 EOSINOPHIL (test code=EOS) % 0.0-5.0 MORPHOLOGY COMMENT (test code=MOC) PLATELET ESTIMATE (test code=PLTEST) PLATELET MORPHOLOGY (test code=PLTMORPH) PT REFUSE NOTIFIED RADHA [email or web address] 12/21/18 0611CBC W/MANUAL [id number] 09:37:00* Test Item Value Reference Range Comments WHITE BLOOD CELL (test code=WBC) 10.2 K/mm3 4.5-12.5 RED BLOOD CELL (test code=RBC) 3.27 mill/mm3 4.0-5.8 HEMOGLOBIN (test code=HGB) 9.7 gram/dL 13.0-17.5 HEMATOCRIT (test code=HCT) 30.0 % 42.0-52.0 MEAN CELL VOLUME (test code=MCV) 91.7 fL 80-98 MEAN CELL HGB (test code=MCH) 29.7 picogram 27.0-33.0 MEAN CELL HGB CONCETRATION (test code=MCHC) 32.3 gram/dL 33.0-36.0 RED CELL DISTRIBUTION WIDTH (test code=RDW) 12.8 % 11.6-16.2 RED CELL DISTRIBUTION WIDTH SD (test code=RDW-SD) 42.7 fL 37.0-51.0 PLATELET COUNT (test code=PLT) 103 K/mm3 150-450 MEAN PLATELET VOLUME (test code=MPV) 9.5 fL 6.7-11.0 IMMATURE GRANULOCYTE % (test code=IG%) 0.3 % 0.0-5.0 NUCLEATED RBC % (test code=NRBC%) 0.0 % 0-0 NEUTROPHIL # (test code=NT#) 2.88 K/mm3 1.8-7.7 IMMATURE GRANULOCYTE # (test code=IG#) 0.03 x10 3/uL 0-0.03 LYMPHOCYTE # (test code=LY#) 6.20 K/mm3 1.0-5.0 MONOCYTE # (test code=MO#) 0.80 K/mm3 0-0.8 EOSINOPHIL # (test code=EO#) 0.26 K/mm3 0.0-0.5 BASOPHIL # (test code=BA#) 0.05 K/mm3 0.0-0.2 NUCLEATED RBC # (test code=NRBC#) 0.00 K/mm3 0.0-0.1 MANUAL DIFF REQUIRED (test code=MDIFF) YES STAIN ACCEPTABILITY (test code=STN ACCEPTABLE) TOTAL CELLS COUNTED (test code=TCC) #CELLS SEGMENTED NEUTROPHILS (test code=SEG) % 39-69 LYMPHOCYTE (test code=LYMPH) % 25-55 MONOCYTE (test code=MON) % 0-10 MORPHOLOGY COMMENT (test code=MOC) PLATELET ESTIMATE (test code=PLTEST) PLATELET MORPHOLOGY (test code=PLTMORPH) PT REFUSE NOTIFIED RADHA [email or web address] 12/21/18 0611CBC W/MANUAL [id number] 09:36:00* Test Item Value Reference Range Comments WHITE BLOOD CELL (test code=WBC) 10.2 K/mm3 4.5-12.5 RED BLOOD CELL (test code=RBC) 3.27 mill/mm3 4.0-5.8 HEMOGLOBIN (test code=HGB) 9.7 gram/dL 13.0-17.5 HEMATOCRIT (test code=HCT) 30.0 % 42.0-52.0 MEAN CELL VOLUME (test code=MCV) 91.7 fL 80-98 MEAN CELL HGB (test code=MCH) 29.7 picogram 27.0-33.0 MEAN CELL HGB CONCETRATION (test code=MCHC) 32.3 gram/dL 33.0-36.0 RED CELL DISTRIBUTION WIDTH (test code=RDW) 12.8 % 11.6-16.2 RED CELL DISTRIBUTION WIDTH SD (test code=RDW-SD) 42.7 fL 37.0-51.0 PLATELET COUNT (test code=PLT) 103 K/mm3 150-450 MEAN PLATELET VOLUME (test code=MPV) 9.5 fL 6.7-11.0 IMMATURE GRANULOCYTE % (test code=IG%) 0.3 % 0.0-5.0 NUCLEATED RBC % (test code=NRBC%) 0.0 % 0-0 NEUTROPHIL # (test code=NT#) 2.88 K/mm3 1.8-7.7 IMMATURE GRANULOCYTE # (test code=IG#) 0.03 x10 3/uL 0-0.03 LYMPHOCYTE # (test code=LY#) 6.20 K/mm3 1.0-5.0 MONOCYTE # (test code=MO#) 0.80 K/mm3 0-0.8 EOSINOPHIL # (test code=EO#) 0.26 K/mm3 0.0-0.5 BASOPHIL # (test code=BA#) 0.05 K/mm3 0.0-0.2 NUCLEATED RBC # (test code=NRBC#) 0.00 K/mm3 0.0-0.1 MANUAL DIFF REQUIRED (test code=MDIFF) YES STAIN ACCEPTABILITY (test code=STN ACCEPTABLE) TOTAL CELLS COUNTED (test code=TCC) #CELLS SEGMENTED NEUTROPHILS (test code=SEG) % 39-69 LYMPHOCYTE (test code=LYMPH) % 25-55 MONOCYTE (test code=MON) % 0-10 EOSINOPHIL (test code=EOS) % 0.0-5.0 CABOT RINGS (test code=CAB) MORPHOLOGY COMMENT (test code=MOC) PLATELET ESTIMATE (test code=PLTEST) PLATELET MORPHOLOGY (test code=PLTMORPH) PT REFUSE NOTIFIED RADHA [email or web address] 12/21/18 [id number] W/MANUAL [id number] 09:36:00* Test Item Value Reference Range Comments WHITE BLOOD CELL (test code=WBC) 10.2 K/mm3 4.5-12.5 RED BLOOD CELL (test code=RBC) 3.27 mill/mm3 4.0-5.8 HEMOGLOBIN (test code=HGB) 9.7 gram/dL 13.0-17.5 HEMATOCRIT (test code=HCT) 30.0 % 42.0-52.0 MEAN CELL VOLUME (test code=MCV) 91.7 fL 80-98 MEAN CELL HGB (test code=MCH) 29.7 picogram 27.0-33.0 MEAN CELL HGB CONCETRATION (test code=MCHC) 32.3 gram/dL 33.0-36.0 RED CELL DISTRIBUTION WIDTH (test code=RDW) 12.8 % 11.6-16.2 RED CELL DISTRIBUTION WIDTH SD (test code=RDW-SD) 42.7 fL 37.0-51.0 PLATELET COUNT (test code=PLT) 103 K/mm3 150-450 MEAN PLATELET VOLUME (test code=MPV) 9.5 fL 6.7-11.0 IMMATURE GRANULOCYTE % (test code=IG%) 0.3 % 0.0-5.0 NUCLEATED RBC % (test code=NRBC%) 0.0 % 0-0 NEUTROPHIL # (test code=NT#) 2.88 K/mm3 1.8-7.7 IMMATURE GRANULOCYTE # (test code=IG#) 0.03 x10 3/uL 0-0.03 LYMPHOCYTE # (test code=LY#) 6.20 K/mm3 1.0-5.0 MONOCYTE # (test code=MO#) 0.80 K/mm3 0-0.8 EOSINOPHIL # (test code=EO#) 0.26 K/mm3 0.0-0.5 BASOPHIL # (test code=BA#) 0.05 K/mm3 0.0-0.2 NUCLEATED RBC # (test code=NRBC#) 0.00 K/mm3 0.0-0.1 MANUAL DIFF REQUIRED (test code=MDIFF) YES STAIN ACCEPTABILITY (test code=STN ACCEPTABLE) TOTAL CELLS COUNTED (test code=TCC) #CELLS SEGMENTED NEUTROPHILS (test code=SEG) % 39-69 LYMPHOCYTE (test code=LYMPH) % 25-55 MONOCYTE (test code=MON) % 0-10 EOSINOPHIL (test code=EOS) % 0.0-5.0 CABOT RINGS (test code=CAB) MORPHOLOGY COMMENT (test code=MOC) PLATELET ESTIMATE (test code=PLTEST) PLATELET MORPHOLOGY (test code=PLTMORPH) PT REFUSE NOTIFIED RADHA [email or web address] 12/21/18 [id number] 06:31:00* Test Item Value Reference Range Comments GLUBED (test code=GLUBED) 124 mg/dL 74-106 Performed by certified corking machine operator at [facility] [id number] 22:03:00* Test Item Value Reference Range Comments GLUBED (test code=GLUBED) 138 mg/dL 74-106 Performed by certified corking machine operator at [facility] [id number] 16:59:00* Test Item Value Reference Range Comments GLUBED (test code=GLUBED) 164 mg/dL 74-106 Performed by certified corking machine operator at [facility] [id number] 12:18:00* Test Item Value Reference Range Comments GLUBED (test code=GLUBED) 143 mg/dL 74-106 Performed by certified corking machine operator at [facility] [id number] 06:15:00* Test Item Value Reference Range Comments GLUBED (test code=GLUBED) 149 mg/dL 74-106 Performed by certified corking machine operator at [facility] [id number] 21:02:00* Test Item Value Reference Range Comments GLUBED (test code=GLUBED) 140 mg/dL 74-106 Performed by certified corking machine operator at [facility] [id number] 16:10:00* Test Item Value Reference Range Comments GLUBED (test code=GLUBED) 165 mg/dL 74-106 Performed by certified corking machine operator at [facility] [id number] 10:52:00* Test Item Value Reference Range Comments GLUBED (test code=GLUBED) 171 mg/dL 74-106 Performed by certified corking machine operator at [facility] [id number] 06:31:00* Test Item Value Reference Range Comments GLUBED (test code=GLUBED) 158 mg/dL 74-106 Performed by certified corking machine operator at [facility] [id number] 22:06:00* Test Item Value Reference Range Comments GLUBED (test code=GLUBED) 133 mg/dL 74-106 Performed by certified corking machine operator at [facility] [id number] 15:48:00* Test Item Value Reference Range Comments GLUBED (test code=GLUBED) 133 mg/dL 74-106 Performed by certified corking machine operator at [facility] [id number] 13:08:00* Test Item Value Reference Range Comments GLUBED (test code=GLUBED) 114 mg/dL 74-106 Performed by certified corking machine operator at [facility] [id number] 12:27:00* Test Item Value Reference Range Comments TROPONIN-I (test code=TROPI) <0.015 ng/mL 0-0.045 2253BASIC METABOLIC [id number] 09:13:00* Test Item Value Reference Range Comments SODIUM (test code=NA) 140 mmol/L 136-145 POTASSIUM (test code=K) 4.9 mmol/L 3.5-5.1 CHLORIDE (test code=CL) 106.0 mmol/L 98-107 CARBON DIOXIDE (test code=CO2) 25.0 mmol/L 21-32 ANION GAP (test code=GAP) 13.9 10-20 GLUCOSE (test code=GLU) 135 mg/dL 74-106 BLOOD UREA NITROGEN (test code=BUN) 54 mg/dL 7-18 RESULT VERIFIED BY REPEAT ANALYSIS GLOMERULAR FILTRATION RATE (test code=GFR) 13 mL/min >=60 Estimated GFR by using Modified MDRD formula.Chronic kidney disease is defined as either kidney damageor GFR <60 mL/min/1.73 m2 for >3 months. CREATININE (test code=CREAT) 4.90 mg/dL 0.7-1.3 BUN/CREATININE RATIO (test code=BUN/CREA) 11.0 10-20 CALCIUM (test code=CA) 7.9 mg/dL 8.5-10.1 PATIENT REFUSE RADHA CHILD NOTIFIED V.LAB.EP 12/18/[id number]/ 0447BASIC METABOLIC [id number] 09:01:00* Test Item Value Reference Range Comments SODIUM (test code=NA) 140 mmol/L 136-145 POTASSIUM (test code=K) 4.9 mmol/L 3.5-5.1 CHLORIDE (test code=CL) 106.0 mmol/L 98-107 CARBON DIOXIDE (test code=CO2) mmol/L 21-32 ANION GAP (test code=GAP) 10-20 GLUCOSE (test code=GLU) mg/dL 74-106 BLOOD UREA NITROGEN (test code=BUN) mg/dL 7-18 GLOMERULAR FILTRATION RATE (test code=GFR) mL/min >=60 CREATININE (test code=CREAT) mg/dL 0.7-1.3 BUN/CREATININE RATIO (test code=BUN/CREA) 10-20 CALCIUM (test code=CA) mg/dL 8.5-10.1 PATIENT REFUSE RADHA CHILD NOTIFIED V.LAB.EP 12/18/[id number]/ 0447CBC W/AUTO [id number] 08:37:00* Test Item Value Reference Range Comments WHITE BLOOD CELL (test code=WBC) 8.8 K/mm3 4.5-12.5 RED BLOOD CELL (test code=RBC) 3.57 mill/mm3 4.0-5.8 HEMOGLOBIN (test code=HGB) 10.7 gram/dL 13.0-17.5 HEMATOCRIT (test code=HCT) 32.5 % 42.0-52.0 MEAN CELL VOLUME (test code=MCV) 91.0 fL 80-98 MEAN CELL HGB (test code=MCH) 30.0 picogram 27.0-33.0 MEAN CELL HGB CONCETRATION (test code=MCHC) 32.9 gram/dL 33.0-36.0 RED CELL DISTRIBUTION WIDTH (test code=RDW) 13.0 % 11.6-16.2 RED CELL DISTRIBUTION WIDTH SD (test code=RDW-SD) 42.6 fL 37.0-51.0 PLATELET COUNT (test code=PLT) 113 K/mm3 150-450 MEAN PLATELET VOLUME (test code=MPV) 8.9 fL 6.7-11.0 NEUTROPHIL % (test code=NT%) 34.4 % 39.0-69.0 IMMATURE GRANULOCYTE % (test code=IG%) 0.5 % 0.0-5.0 LYMPHOCYTE % (test code=LY%) 51.5 % 25.0-55.0 MONOCYTE % (test code=MO%) 7.0 % 0.0-10.0 EOSINOPHIL % (test code=EO%) 5.9 % 0.0-5.0 BASOPHIL % (test code=BA%) 0.7 % 0.0-1.0 NUCLEATED RBC % (test code=NRBC%) 0.0 % 0-0 NEUTROPHIL # (test code=NT#) 3.03 K/mm3 1.8-7.7 IMMATURE GRANULOCYTE # (test code=IG#) 0.04 x10 3/uL 0-0.03 LYMPHOCYTE # (test code=LY#) 4.53 K/mm3 1.0-5.0 MONOCYTE # (test code=MO#) 0.62 K/mm3 0-0.8 EOSINOPHIL # (test code=EO#) 0.52 K/mm3 0.0-0.5 BASOPHIL # (test code=BA#) 0.06 K/mm3 0.0-0.2 NUCLEATED RBC # (test code=NRBC#) 0.00 K/mm3 0.0-0.1 MANUAL DIFF REQUIRED (test code=MDIFF) NO PATIENT REFUSED RADHA JACKSON NOTIFIED V.LAB.EP [id number] 06:37:00* Test Item Value Reference Range Comments GLUBED (test code=GLUBED) 84 mg/dL 74-106 Performed by certified corking machine operator at [facility] [id number] 21:17:00* Test Item Value Reference Range Comments TROPONIN-I (test code=TROPI) <0.015 ng/mL 0-0.045 REFUSING RADHA LARA.LAB.LC1 12/17/18 [id number] 20:57:00* Test Item Value Reference Range Comments GLUBED (test code=GLUBED) 197 mg/dL 74-106 Performed by certified corking machine operator at [facility] THROMBOPLASTIN TIME [id number] 20:56:00* Test Item Value Reference Range Comments THROMBOPLASTIN TIME PARTIAL (test code=PTT) 30.0 seconds 25.0-36.5 B. 12/17/18 1858IS PATIENT ON ANTICOAGULANTS? NCOMPREHENSIVE METABOLIC PANEL 2018-12-17 19:16:00* Test Item Value Reference Range Comments SODIUM (test code=NA) 138 mmol/L 136-145 POTASSIUM (test code=K) 6.1 mmol/L 3.5-5.1 Results called to [id number] by V.LAB.[facility] 12/17/18 1916Critical results verified and read back by Nurse? Y CHLORIDE (test code=CL) 111.0 mmol/L 98-107 CARBON DIOXIDE (test code=CO2) 22.0 mmol/L 21-32 ANION GAP (test code=GAP) 11.1 10-20 GLUCOSE (test code=GLU) 174 mg/dL 74-106 BLOOD UREA NITROGEN (test code=BUN) 76 mg/dL 7-18 GLOMERULAR FILTRATION RATE (test code=GFR) 10 mL/min >=60 Estimated GFR by using Modified MDRD formula.Chronic kidney disease is defined as either kidney damageor GFR <60 mL/min/1.73 m2 for >3 months. CREATININE (test code=CREAT) 5.90 mg/dL 0.7-1.3 BUN/CREATININE RATIO (test code=BUN/CREA) 12.9 10-20 TOTAL PROTEIN (test code=PROT) 6.6 gram/dL 6.4-8.2 ALBUMIN (test code=ALB) 2.9 g/dL 3.4-5.0 GLOBULIN (test code=GLOB) 3.7 gram/dL 2.7-4.2 ALBUMIN/GLOBULIN RATIO (test code=A/G) 0.8 0.75-1.50 CALCIUM (test code=CA) 7.8 mg/dL 8.5-10.1 BILIRUBIN TOTAL (test code=BILT) 0.20 mg/dL 0.0-1.0 SGOT/AST (test code=AST) 13 IUnit/L 15-37 SGPT/ALT (test code=ALT) 12 IUnit/L 12-78 ALKALINE PHOSPHATASE TOTAL (test code=ALKP) 85 IUnit/L 45-117 Note change in reference range due to change in reagent. [id number] 19:16:00* Test Item Value Reference Range Comments LIPASE (test code=LIP) 93 U/L 73.0-393.0 THYROID PROFILE [id number] 19:16:00* Test Item Value Reference Range Comments T3 UPTAKE (test code=T3UP) 36.0 % 30.0-40.0 T4 (THYROXINE) (test code=T4) 6.7 ug/dL 4.5-13.9 T7 (FREE THYROXINE INDEX) (test code=T7) 2.41 FTI 1.3-5.1 THYROID STIMULATING HORMONE (test code=TSH) 1.520 uIU/mL 0.36-3.74 TSH REFERENCE RANGES: EUTHYROID: 0.35 - 4.3 mIU/mL HYPO : > 5.5 mIU/mL HYPER : < 0.35 mIU/mL AG HEPAT B [id number] 19:10:00* Test Item Value Reference Range Comments AG HEPAT B SURF (test code=HBSAG) Nonreactive Index Nonreactive REFUSING RADHA LARA.LAB.LC1 12/17/18 1455B-TYPE NATRIURETIC [id number] 19:00:00* Test Item Value Reference Range Comments B-TYPE NATRIURETIC PEPTIDE (test code=BNP) 244.26 pgram/mL 0-100 Has Patient received Natrecor? [id number] 18:46:00* Test Item Value Reference Range Comments TROPONIN-I (test code=TROPI) <0.015 ng/mL 0-0.045 C REACTIVE [id number] 18:39:00* Test Item Value Reference Range Comments C REACTIVE PROTEIN (test code=CRP) 0.46 mg/dL 0-0.3 [id number] 18:36:00* Test Item Value Reference Range Comments GLYCOSYLATED HEMOGLOBIN (HA1C) (test code=GLYHGB) 5.4 % HbA1 4.8-6.0 ESTIMATED AVERAGE GLUCOSE (test code=EAG) 108 MG/DL CBC W/AUTO [id number] 18:05:00* Test Item Value Reference Range Comments WHITE BLOOD CELL (test code=WBC) 9.2 K/mm3 4.5-12.5 RED BLOOD CELL (test code=RBC) 3.52 mill/mm3 4.0-5.8 HEMOGLOBIN (test code=HGB) 10.5 gram/dL 13.0-17.5 HEMATOCRIT (test code=HCT) 31.5 % 42.0-52.0 MEAN CELL VOLUME (test code=MCV) 89.5 fL 80-98 MEAN CELL HGB (test code=MCH) 29.8 picogram 27.0-33.0 MEAN CELL HGB CONCETRATION (test code=MCHC) 33.3 gram/dL 33.0-36.0 RED CELL DISTRIBUTION WIDTH (test code=RDW) 13.2 % 11.6-16.2 RED CELL DISTRIBUTION WIDTH SD (test code=RDW-SD) 42.6 fL 37.0-51.0 PLATELET COUNT (test code=PLT) 114 K/mm3 150-450 MEAN PLATELET VOLUME (test code=MPV) 9.2 fL 6.7-11.0 NEUTROPHIL % (test code=NT%) 30.8 % 39.0-69.0 IMMATURE GRANULOCYTE % (test code=IG%) 0.2 % 0.0-5.0 LYMPHOCYTE % (test code=LY%) 55.3 % 25.0-55.0 MONOCYTE % (test code=MO%) 7.0 % 0.0-10.0 EOSINOPHIL % (test code=EO%) 5.9 % 0.0-5.0 BASOPHIL % (test code=BA%) 0.8 % 0.0-1.0 NUCLEATED RBC % (test code=NRBC%) 0.0 % 0-0 NEUTROPHIL # (test code=NT#) 2.84 K/mm3 1.8-7.7 IMMATURE GRANULOCYTE # (test code=IG#) 0.02 x10 3/uL 0-0.03 LYMPHOCYTE # (test code=LY#) 5.10 K/mm3 1.0-5.0 MONOCYTE # (test code=MO#) 0.65 K/mm3 0-0.8 EOSINOPHIL # (test code=EO#) 0.54 K/mm3 0.0-0.5 BASOPHIL # (test code=BA#) 0.07 K/mm3 0.0-0.2 NUCLEATED RBC # (test code=NRBC#) 0.00 K/mm3 0.0-0.1 [id number] 17:33:00* Test Item Value Reference Range Comments GLUBED (test code=GLUBED) 106 mg/dL 74-106 Performed by certified corking machine operator at [facility] [id number] 12:21:00* Test Item Value Reference Range Comments GLUBED (test code=GLUBED) 177 mg/dL 74-106 Performed by certified corking machine operator at [facility] - CT HEAD/BRAIN W/O [id number] 10:44:00 Name: SYEDA POWERS [facility] : 1970 Age/S: 48 / M [facility] Unit #: [id number] Loc: [place] [address] Phys: Juvenal Forde MD Acct: [id number] Dis Date: Status: ADM IN PHONE #: [phone] Exam Date: 12/17/2018 1005 FAX #: [phone] Reason: DIZZINESS EXAMS: CPT CODE: [id number] CT HEAD/BRAIN W/O CONT 56115 HISTORY: Dizziness. COMPARISON: November 12, 2018. CT brain without contrast: Automated exposure control. No acute intracranial bleeds or extra-axial collections and there is no acute territorial vascular infarction. The [place]-white matter differentiation is preserved. The sulci, gyri, ventricles and subarachnoid spaces and the basilar cisterns are normal for patient's age. No herniation or hydrocephalus or midline shift is noted. Fourth ventricle remains midline. Portions of the visualized paranasal sinuses demonstrated polyp within the floor of the right maxillary sinus. No obvious bony calvarial defect is noted. IMPRESSION: No acute intracranial bleeds or extra-axial collections. No acute territorial vascular infarction. Correlate with MRI scan for further evaluation as clinically indicated. No herniation or hydrocephalus or midline shift. at 1044 Reported and signed by: Manish Velasquez M.D. CC: Juvenal Forde MD Technologist:Nasir Elder RT(R),(MR),(CT); CTDI: DLP: Trnscb Date/Time: 12/17/2018 (1044) t.SDR.TH4 Orig Print D/T: S: 12/17/2018 (1046) PAGE 1 Signed Report [id number] 13:14:00* Test Item Value Reference Range Comments GLUBED (test code=GLUBED) 120 mg/dL 74-106 Per[facility] certified corking machine [facility]~ COMPREHENSIVE METABOLIC [id number] 10:11:00* Test Item Value Reference Range Comments SODIUM (test code=NA) 143 mmol/L 136-145 POTASSIUM (test code=K) 4.5 mmol/L 3.5-5.1 CHLORIDE (test code=CL) 107.0 mmol/L 98-107 CARBON DIOXIDE (test code=CO2) 29.0 mmol/L 21-32 ANION GAP (test code=GAP) 11.5 10-20 GLUCOSE (test code=GLU) 115 mg/dL 74-106 BLOOD UREA NITROGEN (test code=BUN) 43 mg/dL 7-18 RESULT VERIFIED BY REPEAT ANALYSIS GLOMERULAR FILTRATION RATE (test code=GFR) 13 mL/min >=60 Estimated GFR by using Modified MDRD formula.Chronic kidney disease is defined as either kidney damageor GFR <60 mL/min/1.73 m2 for >3 months. CREATININE (test code=CREAT) 4.70 mg/dL 0.7-1.3 BUN/CREATININE RATIO (test code=BUN/CREA) 9.1 10-20 TOTAL PROTEIN (test code=PROT) 6.7 gram/dL 6.4-8.2 ALBUMIN (test code=ALB) 2.9 g/dL 3.4-5.0 GLOBULIN (test code=GLOB) 3.8 gram/dL 2.7-4.2 ALBUMIN/GLOBULIN RATIO (test code=A/G) 0.8 0.75-1.50 CALCIUM (test code=CA) 7.9 mg/dL 8.5-10.1 BILIRUBIN TOTAL (test code=BILT) 0.40 mg/dL 0.0-1.0 SGOT/AST (test code=AST) 15 IUnit/L 15-37 SGPT/ALT (test code=ALT) 17 IUnit/L 12-78 ALKALINE PHOSPHATASE TOTAL (test code=ALKP) 86 IUnit/L 45-117 Note change in reference range due to change in reagent. LIPID PROFILE (CORONARY RISK)2018-11-13 10:11:00* Test Item Value Reference Range Comments TRIGLYCERIDES (test code=TRIG) 131 mg/dL 20-150 CHOLESTEROL (test code=CHOL) 132 mg/dL 0-200 CHOLESTEROL/HDL RATIO (test code=CHOLHDL) 4.0 RATIO 0-4.9 RISK ASSOCIATED WITH CHOL/HDL RATIOS: Risk Male Female1/2 AVERAGE 3.43 3.27AVERAGE 4.97 4.442X AVERAGE 9.55 7.053X AVERAGE 23.39 11.04 REFERENCE VALUE IS RELATED TO RISK LEVELS ASRECOMMENDED BY THE JORDYN. HEART, LUNG, AND BLOOD INST. HDL CHOLESTEROL (test code=HDL) 27 mg/dL 40-60 LIPOPROTEIN LDL (test code=LDL) 93 mg/dL 100-129 Reference Interval: mg/dL mmol/L Optimal <100 <2.6Near/above optimal 100-129 2.6- 3.3Borderline High 130-159 3.4-4.1High 160-189 4.1-4.9Very High >=190 >=4.9=========This LDL result is a direct measurement.========= [id number] 10:11:00* Test Item Value Reference Range Comments PHOSPHORUS (test code=PHOS) 6.4 mg/dL 2.5-4.9 [id number] 10:11:00* Test Item Value Reference Range Comments MAGNESIUM (test code=MAG) 1.7 mg/dL 1.8-2.4 THYROID PROFILE [id number] 10:11:00* Test Item Value Reference Range Comments T3 UPTAKE (test code=T3UP) 36.0 % 30.0-40.0 T4 (THYROXINE) (test code=T4) 6.9 ug/dL 4.5-13.9 T7 (FREE THYROXINE INDEX) (test code=T7) 2.48 FTI 1.3-5.1 THYROID STIMULATING HORMONE (test code=TSH) 2.260 uIU/mL 0.36-3.74 TSH REFERENCE RANGES: EUTHYROID: 0.35 - 4.3 mIU/mL HYPO : > 5.5 mIU/mL HYPER : < 0.35 mIU/mL [id number] 10:11:00* Test Item Value Reference Range Comments TROPONIN-I (test code=TROPI) <0.015 ng/mL 0-0.045 B-TYPE NATRIURETIC [id number] 10:09:00* Test Item Value Reference Range Comments B-TYPE NATRIURETIC PEPTIDE (test code=BNP) 209.98 pgram/mL 0-100 [id number] 09:55:00* Test Item Value Reference Range Comments GLYCOSYLATED HEMOGLOBIN (HA1C) (test code=GLYHGB) 5.6 % HbA1 4.8-6.0 ESTIMATED AVERAGE GLUCOSE (test code=EAG) 114 MG/DL [id number] 09:32:00* Test Item Value Reference Range Comments FERRITIN (test code=SELENA) 111 ng/mL 8-388 [id number] 08:13:00* Test Item Value Reference Range Comments GLUBED (test code=GLUBED) 78 mg/dL 74-106 [facility] certified corking machine [facility]~ [id number] 21:16:00* Test Item Value Reference Range Comments GLUBED (test code=GLUBED) 165 mg/dL 74-106 Performed by certified corking machine operator at [facility] AG HEPAT B [id number] 15:12:00* Test Item Value Reference Range Comments AG HEPAT B SURF (test code=HBSAG) Nonreactive Index Nonreactive BASIC METABOLIC [id number] 15:07:00* Test Item Value Reference Range Comments SODIUM (test code=NA) 142 mmol/L 136-145 POTASSIUM (test code=K) 6.2 mmol/L 3.5-5.1 Results called to [id number] by V.LAB.LT 11/12/18 1507Critical results verified and read back by Nurse? Y CHLORIDE (test code=CL) 114.0 mmol/L 98-107 CARBON DIOXIDE (test code=CO2) 23.0 mmol/L 21-32 ANION GAP (test code=GAP) 11.2 10-20 GLUCOSE (test code=GLU) 110 mg/dL 74-106 BLOOD UREA NITROGEN (test code=BUN) 65 mg/dL 7-18 GLOMERULAR FILTRATION RATE (test code=GFR) 10 mL/min >=60 Estimated GFR by using Modified MDRD formula.Chronic kidney disease is defined as either kidney damageor GFR <60 mL/min/1.73 m2 for >3 months. CREATININE (test code=CREAT) 6.00 mg/dL 0.7-1.3 BUN/CREATININE RATIO (test code=BUN/CREA) 10.8 10-20 CALCIUM (test code=CA) 7.4 mg/dL 8.5-10.1 1231PATIENT WAS IN THE SHOWER BUT SAID THAT HE WANTS TO BE DRAWNFROM DIALYSIS V. LAB.DT 11/12/18 [id number] 15:01:00* Test Item Value Reference Range Comments CKMB (test code=CKMBT) 4.2 ng/mL 0-6.0 11/12/18 1230CBC W/AUTO [id number] 14:51:00* Test Item Value Reference Range Comments WHITE BLOOD CELL (test code=WBC) 8.0 K/mm3 4.5-12.5 RED BLOOD CELL (test code=RBC) 3.02 mill/mm3 4.0-5.8 HEMOGLOBIN (test code=HGB) 9.2 gram/dL 13.0-17.5 HEMATOCRIT (test code=HCT) 29.7 % 42.0-52.0 MEAN CELL VOLUME (test code=MCV) 98.3 fL 80-98 MEAN CELL HGB (test code=MCH) 30.5 picogram 27.0-33.0 MEAN CELL HGB CONCETRATION (test code=MCHC) 31.0 gram/dL 33.0-36.0 RED CELL DISTRIBUTION WIDTH (test code=RDW) 13.8 % 11.6-16.2 RED CELL DISTRIBUTION WIDTH SD (test code=RDW-SD) 49.6 fL 37.0-51.0 PLATELET COUNT (test code=PLT) 115 K/mm3 150-450 MEAN PLATELET VOLUME (test code=MPV) 9.9 fL 6.7-11.0 NEUTROPHIL % (test code=NT%) 34.2 % 39.0-69.0 IMMATURE GRANULOCYTE % (test code=IG%) 0.4 % 0.0-5.0 LYMPHOCYTE % (test code=LY%) 54.0 % 25.0-55.0 MONOCYTE % (test code=MO%) 6.7 % 0.0-10.0 EOSINOPHIL % (test code=EO%) 4.0 % 0.0-5.0 BASOPHIL % (test code=BA%) 0.7 % 0.0-1.0 NUCLEATED RBC % (test code=NRBC%) 0.0 % 0-0 NEUTROPHIL # (test code=NT#) 2.74 K/mm3 1.8-7.7 IMMATURE GRANULOCYTE # (test code=IG#) 0.03 x10 3/uL 0-0.03 LYMPHOCYTE # (test code=LY#) 4.34 K/mm3 1.0-5.0 MONOCYTE # (test code=MO#) 0.54 K/mm3 0-0.8 EOSINOPHIL # (test code=EO#) 0.32 K/mm3 0.0-0.5 BASOPHIL # (test code=BA#) 0.06 K/mm3 0.0-0.2 NUCLEATED RBC # (test code=NRBC#) 0.00 K/mm3 0.0-0.1 MANUAL DIFF REQUIRED (test code=MDIFF) NO PATIENT WANTS TO BE DRAWN AT DIALYSIS V.LAB.DT 159479 RADHA LEGER - CT HEAD/BRAIN W/O [id number] 12:55:00 Name: SYEDA POWERS [facility] : 1970 Age/S: 47 / M [address] [facility] Unit #: [id number] Loc: [place] [address] Phys: Rosi Ramos Acct: [id number] Dis Date: Status: ADM IN PHONE #: [phone] Exam Date: 11/12/2018 1103 FAX #: [phone] Reason: Headache EXAMS: CPT CODE: [id number] CT HEAD/BRAIN W/O CONT 64494 HISTORY: Headaches. COMPARISON: August 31, 2018. CT brain without contrast: Automated exposure control. No acute intracranial bleeds or extra-axial collections and there is no acute territorial vascular infarction. The [place]-white matter differentiation is preserved. The sulci, gyri, ventricles and subarachnoid spaces and the basilar cisterns are normal for patient's age. No herniation or hydrocephalus or midline shift is noted. Fourth ventricle remains midline. Portions of the visualized paranasal sinuses demonstrating polyp or retention cyst within the floor of the right maxillary sinus. No obvious bony calvarial defect is noted. IMPRESSION: No acute intracranial bleeds or extra- axial collections. No acute territorial vascular infarction. No herniation or hydrocephalus or midline shift. at 1255 Reported and signed by: Manish Velasquez M.D. CC: Juvenal Forde MD; Rosi Ramos Technologist:Nasir Harmon RT(R),(MR),(CT) CTDI: DLP: Trnscb Date/Time: 2018 (5471) t.TERESAR.TH4 Orig Print D/T: S: 11/12/2018 (4568 ) PAGE 1 Signed Report [id number] 11:46:00* Test Item Value Reference Range Comments GLUBED (test code=GLUBED) 154 mg/dL 74-106 Performed by certified corking machine operator at [facility] - XR CHEST 2 [id number] 11:28:00 FAX: Juvenal Holloway MD [phone] Jones: St: ADM Name: SYEDA RUSHING [facility] : [birth year] Age/S: 47/M [address] [facility] Unit #: [id number] Loc: V.4024 [place] [address] Phys: Juvenal Forde MD Acct: [id number] Dis Date: Status: ADM IN PHONE #: [phone] Exam Date: 11/12/2018 1121 FAX #: [phone] Reason: HTN EXAMS: CPT CODE: [id number] XR CHEST 2 V 69482 HISTORY: Hypertension. COMPARISON: October 24, 2018. Right jugular catheter is unchanged. Dependent changes. Scarring. No acute infiltrates, effusion or congestion. Cardiomegaly. IMPRESSION: No acute infiltra katie, effusion or congestion. at 1125 Reported and signed by: Manish Velasquez M.D. CC: Juvenal Forde MD Technologist: BRADLEY SALGUERO RT(R) Trnmyranda Date/Time/By: 11/12/2018 (1128) : By: DucR.TH4 Orig Print D/T: S: 11/12/2018 (1135) PAGE 1 Signed Report [id number] 08:01:00* Test Item Value Reference Range Comments GLUBED (test code=GLUBED) 130 mg/dL 74-106 Performed by certified corking machine operator at [facility] URINALYSIS [id number] 22:14:00* Test Item Value Reference Range Comments UA COLOR (test code=COLU) Light-Yellow YELLOW UA APPEARANCE (test code=APPU) CLEAR CLEAR UA GLUCOSE DIPSTICK (test code=DGLUU) 200 (2+) mg/dL NEGATIVE UA BILIRUBIN DIPSTICK (test code=BILU) NEGATIVE mg/dL NEGATIVE UA KETONE DIPSTICK (test code=KETU) NEGATIVE mg/dL NEGATIVE UA SPECIFIC GRAVITY (test code=SGU) 1.014 1.001-1.035 UA BLOOD DIPSTICK (test code=SANDRA) 0.1 mg/dL (1+) mg/dL NEGATIVE UA PH DIPSTICK (test code=LILLIANA) 6.0 5.0-8.0 UA PROTEIN DIPSTICK (test code=PROU) 300 (3+) mg/dL NEGATIVE UA UROBILINIOGEN DIPSTICK (test code=URO) Normal mg/dL NEGATIVE UA NITRITE DIPSTICK (test code=KVNG) NEGATIVE NEGATIVE UA LEUKOCYTE ESTERASE W REFLEX (test code=LEUUR) NEGATIVE Horace/uL NEGATIVE UA WBC (test code=WBCU) 0-5 per HPF 0-5 UA RBC (test code=RBCU) 6-10 #/HPF 0-5 UA EPITHELIAL CELLS (test code=EPIU) Few (2-5/hpf) per HPF FEW UA BACTERIA (test code=BACU) FEW #/HPF NONE UA MUCUS (test code=MUCU) FEW #/LPF FEW Urine Source? Clean CatchURINALYSIS [id number] 22:11:00* Test Item Value Reference Range Comments UA COLOR (test code=COLU) Light-Yellow YELLOW UA APPEARANCE (test code=APPU) CLEAR CLEAR UA GLUCOSE DIPSTICK (test code=DGLUU) 200 (2+) mg/dL NEGATIVE UA BILIRUBIN DIPSTICK (test code=BILU) NEGATIVE mg/dL NEGATIVE UA KETONE DIPSTICK (test code=KETU) NEGATIVE mg/dL NEGATIVE UA SPECIFIC GRAVITY (test code=SGU) 1.014 1.001-1.035 UA BLOOD DIPSTICK (test code=SANDRA) 0.1 mg/dL (1+) mg/dL NEGATIVE UA PH DIPSTICK (test code=LILLIANA) 6.0 5.0-8.0 UA PROTEIN DIPSTICK (test code=PROU) 300 (3+) mg/dL NEGATIVE UA UROBILINIOGEN DIPSTICK (test code=URO) Normal mg/dL NEGATIVE UA NITRITE DIPSTICK (test code=KVNG) NEGATIVE NEGATIVE UA LEUKOCYTE ESTERASE W REFLEX (test code=LEUUR) NEGATIVE Horace/uL NEGATIVE UA WBC (test code=WBCU) per HPF 0-5 UA RBC (test code=RBCU) per HPF 0-5 UA EPITHELIAL CELLS (test code=EPIU) per HPF Few UA BACTERIA (test code=BACU) per HPF NONE Urine Source? Clean Catch- CT ABD PELVIS W/O [id number] 21:54:00 Name: SYEDA POWERS [facility] : 1970 Age/S: 47 / M [address] [facility] Unit #: [id number] Loc: [place] [address] Phys: Juvenal Forde MD Acct: [id number] Dis Date: Status: ADM IN PHONE #: [phone] Exam Date: 11/11/2018 2143 FAX #: Reason: ABDOMINA PAIN, NV. DIARRHER EXAMS: CPT CODE: [id number] CT ABD PELVIS W/O CONT 98968 REASON FOR EXAM: ABDOMINA PAIN, NV. DIARRHER EXAM ORDER DATE: 11/11/2018 8:07 PM Ordering M.D.: Juvenal Forde MD PROCEDURE: - CT ABD PEL VIS W/O CONT COMPARISON: FINDINGS: CT images of the abdomen and pelvis were obtained without IV and with oral contrast at 5mm. Dose modulation, iterative reconstruction, and/or weight based adjustment of the MA/KV was utilized to reduce the radiation dose to as low as reaso nably achievable. The liver, spleen, and pancreas are gross ly within normal limits. The patient is status post cholecystectomy The kidneys are within normal limits. The urinary bladder is unr emarkable. The appendix is unremarkable No evidence of free air or free fluid. IMPRESSION: Small left-sided umbilica l hernia with herniation of a loop of bowel probably small bowel through the hernia neck with minimal thickening of the bowel wall E lectronically Signed by Nida Wilkinson on 11/11/2018 at 2154 Reported and signed by: Oscar Wilkinson M.D. CC: Juvenal Forde MD Technologist:Courtney Jacob RT(R) CTDI: DLP: Trnscb Date/Time: 11/11/2018 (2153) [email or web address] Orig Print D/T: S: 11/11/2018 (2156) PAGE 1 Signed Report SED RATE [id number] 21:38:00* Test Item Value Reference Range Comments SED RATE WESTERGREN (test code=SEDW) 62 mm/hr 0-15 SED [id number] 21:38:00* Test Item Value Reference Range Comments SED RATE (test code=SEDW) 62 mm/hr 0-15 WINTROBE METHOD: NORMAL RANGE FOR MEN: 0-9 MM/HR WOMAN: 0-20 MM/HR B-TYPE NATRIURETIC [id number] 21:27:00* Test Item Value Reference Range Comments B-TYPE NATRIURETIC PEPTIDE (test code=BNP) 519.20 pgram/mL 0-100 Has Patient received Natrecor? NOTHYROID STIMULATING [id number] 21:09:00 * Test Item Value Reference Range Comments THYROID STIMULATING HORMONE (test code=TSH) 1.040 uIU/mL 0.36-3.74 TSH REFERENCE RANGES: EUTHYROID: 0.35 - 4.3 mIU/mL HYPO : > 5.5 mIU/mL HYPER : < 0.35 mIU/mL [id number] 21:03:00* Test Item Value Reference Range Comments GLUBED (test code=GLUBED) 170 mg/dL 74-106 Performed by certified corking machine operator at [facility] [id number] 20:49:00* Test Item Value Reference Range Comments AMYLASE (test code=NICKOLAS) 52 Unit/L 25-115 C REACTIVE [id number] 20:49:00* Test Item Value Reference Range Comments C REACTIVE PROTEIN (test code=CRP) 1.32 mg/dL 0-0.3 COMPREHENSIVE METABOLIC [id number] 20:49:00* Test Item Value Reference Range Comments SODIUM (test code=NA) 143 mmol/L 136-145 POTASSIUM (test code=K) 5.6 mmol/L 3.5-5.1 CHLORIDE (test code=CL) 116.0 mmol/L 98-107 CARBON DIOXIDE (test code=CO2) 22.0 mmol/L 21-32 ANION GAP (test code=GAP) 10.6 10-20 GLUCOSE (test code=GLU) 172 mg/dL 74-106 BLOOD UREA NITROGEN (test code=BUN) 66 mg/dL 7-18 GLOMERULAR FILTRATION RATE (test code=GFR) 11 mL/min >=60 Estimated GFR by using Modified MDRD formula.Chronic kidney disease is defined as either kidney damageor GFR <60 mL/min/1.73 m2 for >3 months. CREATININE (test code=CREAT) 5.70 mg/dL 0.7-1.3 BUN/CREATININE RATIO (test code=BUN/CREA) 11.6 10-20 TOTAL PROTEIN (test code=PROT) 7.2 gram/dL 6.4-8.2 ALBUMIN (test code=ALB) 3.2 g/dL 3.4-5.0 GLOBULIN (test code=GLOB) 4.0 gram/dL 2.7-4.2 ALBUMIN/GLOBULIN RATIO (test code=A/G) 0.8 0.75-1.50 CALCIUM (test code=CA) 8.1 mg/dL 8.5-10.1 BILIRUBIN TOTAL (test code=BILT) 0.30 mg/dL 0.0-1.0 SGOT/AST (test code=AST) 12 IUnit/L 15-37 SGPT/ALT (test code=ALT) 19 IUnit/L 12-78 ALKALINE PHOSPHATASE TOTAL (test code=ALKP) 96 IUnit/L 45-117 Note change in reference range due to change in reagent. CPK-MB [id number] 20:49:00* Test Item Value Reference Range Comments CREATINE KINASE (CK) (test code=CK) 82 IUnit/L 26-208 CKMB (test code=CKMBT) 2.7 ng/mL 0-6.0 RELATIVE % INDEX (test code=REL%) 3.29 % 0.00-2.50 "If the total CK is elevated, the CKMB Fraction must beinterpreted as a Relative % Index, Normal is less than 2.5%"NOTE: Relative % Index is not valid with a normal total CK. [id number] 20:44:00* Test Item Value Reference Range Comments LIPASE (test code=LIP) 120 U/L 73.0-393.0 [id number] 20:41:00* Test Item Value Reference Range Comments GLYCOSYLATED HEMOGLOBIN (HA1C) (test code=GLYHGB) 5.7 % HbA1 4.8-6.0 ESTIMATED AVERAGE GLUCOSE (test code=EAG) 117 MG/DL COMPREHENSIVE METABOLIC [id number] 20:41:00* Test Item Value Reference Range Comments SODIUM (test code=NA) 143 mmol/L 136-145 POTASSIUM (test code=K) 5.6 mmol/L 3.5-5.1 CHLORIDE (test code=CL) 116.0 mmol/L 98-107 CARBON DIOXIDE (test code=CO2) mmol/L 21-32 ANION GAP (test code=GAP) 10-20 GLUCOSE (test code=GLU) mg/dL 74-106 BLOOD UREA NITROGEN (test code=BUN) mg/dL 7-18 GLOMERULAR FILTRATION RATE (test code=GFR) mL/min >=60 CREATININE (test code=CREAT) mg/dL 0.7-1.3 BUN/CREATININE RATIO (test code=BUN/CREA) 10-20 TOTAL PROTEIN (test code=PROT) gram/dL 6.4-8.2 ALBUMIN (test code=ALB) g/dL 3.4-5.0 GLOBULIN (test code=GLOB) gram/dL 2.7-4.2 ALBUMIN/GLOBULIN RATIO (test code=A/G) 0.75-1.50 CALCIUM (test code=CA) mg/dL 8.5-10.1 BILIRUBIN TOTAL (test code=BILT) mg/dL 0.0-1.0 SGOT/AST (test code=AST) IUnit/L 15-37 SGPT/ALT (test code=ALT) IUnit/L 12-78 ALKALINE PHOSPHATASE TOTAL (test code=ALKP) IUnit/L 45-117 CBC W/AUTO [id number] 20:23:00* Test Item Value Reference Range Comments WHITE BLOOD CELL (test code=WBC) 8.2 K/mm3 4.5-12.5 RED BLOOD CELL (test code=RBC) 3.15 mill/mm3 4.0-5.8 HEMOGLOBIN (test code=HGB) 9.7 gram/dL 13.0-17.5 HEMATOCRIT (test code=HCT) 30.3 % 42.0-52.0 MEAN CELL VOLUME (test code=MCV) 96.2 fL 80-98 MEAN CELL HGB (test code=MCH) 30.8 picogram 27.0-33.0 MEAN CELL HGB CONCETRATION (test code=MCHC) 32.0 gram/dL 33.0-36.0 RED CELL DISTRIBUTION WIDTH (test code=RDW) 13.8 % 11.6-16.2 RED CELL DISTRIBUTION WIDTH SD (test code=RDW-SD) 48.6 fL 37.0-51.0 PLATELET COUNT (test code=PLT) 117 K/mm3 150-450 MEAN PLATELET VOLUME (test code=MPV) 9.8 fL 6.7-11.0 NEUTROPHIL % (test code=NT%) 30.9 % 39.0-69.0 IMMATURE GRANULOCYTE % (test code=IG%) 0.4 % 0.0-5.0 LYMPHOCYTE % (test code=LY%) 56.5 % 25.0-55.0 MONOCYTE % (test code=MO%) 7.2 % 0.0-10.0 EOSINOPHIL % (test code=EO%) 4.4 % 0.0-5.0 BASOPHIL % (test code=BA%) 0.6 % 0.0-1.0 NUCLEATED RBC % (test code=NRBC%) 0.0 % 0-0 NEUTROPHIL # (test code=NT#) 2.54 K/mm3 1.8-7.7 IMMATURE GRANULOCYTE # (test code=IG#) 0.03 x10 3/uL 0-0.03 LYMPHOCYTE # (test code=LY#) 4.64 K/mm3 1.0-5.0 MONOCYTE # (test code=MO#) 0.59 K/mm3 0-0.8 EOSINOPHIL # (test code=EO#) 0.36 K/mm3 0.0-0.5 BASOPHIL # (test code=BA#) 0.05 K/mm3 0.0-0.2 NUCLEATED RBC # (test code=NRBC#) 0.00 K/mm3 0.0-0.1 [id number] 19:31:00* Test Item Value Reference Range Comments GLUBED (test code=GLUBED) 194 mg/dL 74-106 Performed by certified corking machine operator at [facility] [id number] 14:38:00* Test Item Value Reference Range Comments GLUBED (test code=GLUBED) 113 mg/dL 74-106 Performed by certified corking machine operator at [facility] [id number] 14:38:00* Test Item Value Reference Range Comments GLUBED (test code=GLUBED) 100 mg/dL 74-106 Performed by certified corking machine operator at [facility] [id number] 14:38:00* Test Item Value Reference Range Comments GLUBED (test code=GLUBED) 134 mg/dL 74-106 Performed by certified corking machine operator at [facility] [id number] 14:36:00* Test Item Value Reference Range Comments GLUBED (test code=GLUBED) 100 mg/dL 74-106 Performed by certified corking machine operator at [facility] [id number] 14:36:00* Test Item Value Reference Range Comments GLUBED (test code=GLUBED) 119 mg/dL 74-106 Performed by certified corking machine operator at [facility] [id number] 14:35:00* Test Item Value Reference Range Comments GLUBED (test code=GLUBED) 134 mg/dL 74-106 Performed by certified corking machine operator at [facility] [id number] 10:35:00* Test Item Value Reference Range Comments GLUBED (test code=GLUBED) 116 mg/dL 74-106 Performed by certified corking machine operator at [facility] [id number] 16:35:00* Test Item Value Reference Range Comments GLUBED (test code=GLUBED) 176 mg/dL 74-106 Performed by certified corking machine operator at [facility] [id number] 11:39:00* Test Item Value Reference Range Comments FERRITIN (test code=SELENA) 135 ng/mL 8-388 [id number] 07:43:00* Test Item Value Reference Range Comments GLUBED (test code=GLUBED) 126 mg/dL 74-106 Performed by certified corking machine operator at [facility] BASIC METABOLIC [id number] 06:43:00* Test Item Value Reference Range Comments SODIUM (test code=NA) 143 mmol/L 136-145 POTASSIUM (test code=K) 5.0 mmol/L 3.5-5.1 CHLORIDE (test code=CL) 112.0 mmol/L 98-107 CARBON DIOXIDE (test code=CO2) 24.0 mmol/L 21-32 ANION GAP (test code=GAP) 12.0 10-20 GLUCOSE (test code=GLU) 158 mg/dL 74-106 BLOOD UREA NITROGEN (test code=BUN) 58 mg/dL 7-18 GLOMERULAR FILTRATION RATE (test code=GFR) 12 mL/min >=60 Estimated GFR by using Modified MDRD formula.Chronic kidney disease is defined as either kidney damageor GFR <60 mL/min/1.73 m2 for >3 months. CREATININE (test code=CREAT) 5.30 mg/dL 0.7-1.3 BUN/CREATININE RATIO (test code=BUN/CREA) 10.9 10-20 CALCIUM (test code=CA) 7.6 mg/dL 8.5-10.1 BASIC METABOLIC [id number] 06:24:00* Test Item Value Reference Range Comments SODIUM (test code=NA) 143 mmol/L 136-145 POTASSIUM (test code=K) 5.0 mmol/L 3.5-5.1 CHLORIDE (test code=CL) 112.0 mmol/L 98-107 CARBON DIOXIDE (test code=CO2) mmol/L 21-32 ANION GAP (test code=GAP) 10-20 GLUCOSE (test code=GLU) mg/dL 74-106 BLOOD UREA NITROGEN (test code=BUN) mg/dL 7-18 GLOMERULAR FILTRATION RATE (test code=GFR) mL/min >=60 CREATININE (test code=CREAT) mg/dL 0.7-1.3 BUN/CREATININE RATIO (test code=BUN/CREA) 10-20 CALCIUM (test code=CA) mg/dL 8.5-10.1 CBC W/AUTO [id number] 06:10:00* Test Item Value Reference Range Comments WHITE BLOOD CELL (test code=WBC) 8.9 K/mm3 4.5-12.5 RED BLOOD CELL (test code=RBC) 3.01 mill/mm3 4.0-5.8 HEMOGLOBIN (test code=HGB) 8.8 gram/dL 13.0-17.5 HEMATOCRIT (test code=HCT) 29.2 % 42.0-52.0 MEAN CELL VOLUME (test code=MCV) 97.0 fL 80-98 MEAN CELL HGB (test code=MCH) 29.2 picogram 27.0-33.0 MEAN CELL HGB CONCETRATION (test code=MCHC) 30.1 gram/dL 33.0-36.0 RED CELL DISTRIBUTION WIDTH (test code=RDW) 13.1 % 11.6-16.2 RED CELL DISTRIBUTION WIDTH SD (test code=RDW-SD) 46.3 fL 37.0-51.0 PLATELET COUNT (test code=PLT) 117 K/mm3 150-450 MEAN PLATELET VOLUME (test code=MPV) 9.5 fL 6.7-11.0 NEUTROPHIL % (test code=NT%) 30.2 % 39.0-69.0 IMMATURE GRANULOCYTE % (test code=IG%) 0.2 % 0.0-5.0 LYMPHOCYTE % (test code=LY%) 57.6 % 25.0-55.0 MONOCYTE % (test code=MO%) 7.6 % 0.0-10.0 EOSINOPHIL % (test code=EO%) 3.9 % 0.0-5.0 BASOPHIL % (test code=BA%) 0.5 % 0.0-1.0 NUCLEATED RBC % (test code=NRBC%) 0.0 % 0-0 NEUTROPHIL # (test code=NT#) 2.68 K/mm3 1.8-7.7 IMMATURE GRANULOCYTE # (test code=IG#) 0.02 x10 3/uL 0-0.03 LYMPHOCYTE # (test code=LY#) 5.11 K/mm3 1.0-5.0 MONOCYTE # (test code=MO#) 0.67 K/mm3 0-0.8 EOSINOPHIL # (test code=EO#) 0.35 K/mm3 0.0-0.5 BASOPHIL # (test code=BA#) 0.04 K/mm3 0.0-0.2 NUCLEATED RBC # (test code=NRBC#) 0.00 K/mm3 0.0-0.1 MANUAL DIFF REQUIRED (test code=MDIFF) NO URINALYSIS [id number] 21:56:00* Test Item Value Reference Range Comments UA COLOR (test code=COLU) YELLOW YELLOW UA APPEARANCE (test code=APPU) SLIGHTLY CLOUDY CLEAR UA GLUCOSE DIPSTICK (test code=DGLUU) 50 (Trace) mg/dL NEGATIVE UA BILIRUBIN DIPSTICK (test code=BILU) NEGATIVE mg/dL NEGATIVE UA KETONE DIPSTICK (test code=KETU) NEGATIVE mg/dL NEGATIVE UA SPECIFIC GRAVITY (test code=SGU) 1.016 1.001-1.035 UA BLOOD DIPSTICK (test code=SANDRA) 1+ (Small) mg/dL NEGATIVE UA PH DIPSTICK (test code=LILLIANA) 5.0 5.0-8.0 UA PROTEIN DIPSTICK (test code=PROU) >500 (3+) mg/dL NEGATIVE UA UROBILINIOGEN DIPSTICK (test code=URO) NEGATIVE mg/dL NEGATIVE UA NITRITE DIPSTICK (test code=KVNG) NEGATIVE NEGATIVE UA LEUKOCYTE ESTERASE W REFLEX (test code=LEUUR) NEGATIVE Horace/uL NEGATIVE UA WBC (test code=WBCU) 0-5 per HPF 0-5 UA RBC (test code=RBCU) 11-20 #/HPF 0-5 UA EPITHELIAL CELLS (test code=EPIU) FEW per HPF FEW UA BACTERIA (test code=BACU) FEW #/HPF NONE UA MUCUS (test code=MUCU) FEW #/LPF FEW UA AMORPHOUS SEDIMENT (test code=AMORU) FEW #/LPF Urine Source? Clean CatchURINALYSIS [id number] 21:54:00* Test Item Value Reference Range Comments UA COLOR (test code=COLU) YELLOW YELLOW UA APPEARANCE (test code=APPU) SLIGHTLY CLOUDY CLEAR UA GLUCOSE DIPSTICK (test code=DGLUU) 50 (Trace) mg/dL NEGATIVE UA BILIRUBIN DIPSTICK (test code=BILU) NEGATIVE mg/dL NEGATIVE UA KETONE DIPSTICK (test code=KETU) NEGATIVE mg/dL NEGATIVE UA SPECIFIC GRAVITY (test code=SGU) 1.016 1.001-1.035 UA BLOOD DIPSTICK (test code=SANDRA) 1+ (Small) mg/dL NEGATIVE UA PH DIPSTICK (test code=LILLIANA) 5.0 5.0-8.0 UA PROTEIN DIPSTICK (test code=PROU) >500 (3+) mg/dL NEGATIVE UA UROBILINIOGEN DIPSTICK (test code=URO) NEGATIVE mg/dL NEGATIVE UA NITRITE DIPSTICK (test code=KVNG) NEGATIVE NEGATIVE UA LEUKOCYTE ESTERASE W REFLEX (test code=LEUUR) NEGATIVE Horace/uL NEGATIVE UA WBC (test code=WBCU) per HPF 0-5 UA RBC (test code=RBCU) per HPF 0-5 UA EPITHELIAL CELLS (test code=EPIU) per HPF Few UA BACTERIA (test code=BACU) per HPF NONE Urine Source? Clean [id number] 21:29:00* Test Item Value Reference Range Comments GLUBED (test code=GLUBED) 119 mg/dL 74-106 Performed by certified corking machine operator at [facility] B-TYPE NATRIURETIC [id number] 19:37:00* Test Item Value Reference Range Comments B-TYPE NATRIURETIC PEPTIDE (test code=BNP) 233.31 pgram/mL 0-100 Has Patient received Natrecor? NOCOMPREHENSIVE METABOLIC [id number] 19:26:00* Test Item Value Reference Range Comments SODIUM (test code=NA) 143 mmol/L 136-145 POTASSIUM (test code=K) 5.1 mmol/L 3.5-5.1 CHLORIDE (test code=CL) 111.0 mmol/L 98-107 CARBON DIOXIDE (test code=CO2) 25.0 mmol/L 21-32 ANION GAP (test code=GAP) 12.1 10-20 GLUCOSE (test code=GLU) 110 mg/dL 74-106 BLOOD UREA NITROGEN (test code=BUN) 55 mg/dL 7-18 GLOMERULAR FILTRATION RATE (test code=GFR) 12 mL/min >=60 Estimated GFR by using Modified MDRD formula.Chronic kidney disease is defined as either kidney damageor GFR <60 mL/min/1.73 m2 for >3 months. CREATININE (test code=CREAT) 5.10 mg/dL 0.7-1.3 BUN/CREATININE RATIO (test code=BUN/CREA) 10.8 10-20 TOTAL PROTEIN (test code=PROT) 6.7 gram/dL 6.4-8.2 ALBUMIN (test code=ALB) 3.1 g/dL 3.4-5.0 GLOBULIN (test code=GLOB) 3.6 gram/dL 2.7-4.2 ALBUMIN/GLOBULIN RATIO (test code=A/G) 0.9 0.75-1.50 CALCIUM (test code=CA) 7.7 mg/dL 8.5-10.1 BILIRUBIN TOTAL (test code=BILT) 0.40 mg/dL 0.0-1.0 SGOT/AST (test code=AST) 17 IUnit/L 15-37 SGPT/ALT (test code=ALT) 17 IUnit/L 12-78 ALKALINE PHOSPHATASE TOTAL (test code=ALKP) 92 IUnit/L 45-117 Note change in reference range due to change in reagent. T4 (THYROXINE)2018-10-14 19:26:00* Test Item Value Reference Range Comments T4 (THYROXINE) (test code=T4) 7.7 ug/dL 4.5-13.9 THYROID STIMULATING [id number] 19:26:00* Test Item Value Reference Range Comments THYROID STIMULATING HORMONE (test code=TSH) 1.450 uIU/mL 0.36-3.74 TSH REFERENCE RANGES: EUTHYROID: 0.35 - 4.3 mIU/mL HYPO : > 5.5 mIU/mL HYPER : < 0.35 mIU/mL C REACTIVE [id number] 19:22:00* Test Item Value Reference Range Comments C REACTIVE PROTEIN (test code=CRP) 0.82 mg/dL 0-0.3 PROTHROMBIN [id number] 19:09:00* Test Item Value Reference Range Comments PROTHROMBIN TIME PATIENT (test code=PTP) 10.9 seconds 9.0-14.0 INTERNATIONAL NORMAL RATIO (test code=INR) 0.9 0.8-1.2 The therapeutic range for oral anticoagulant therapy formost indications is an international normalized ratio (INR)of between 2.0 and 3.0. The recommended therapeutic INRrange for various clinical situations is listed below: Clinical Situation INR range Pulmonary e mbolism treatment (2.0-3.0)Venous thrombosis treatmentVenous thrombosis prophylaxis (high risk surgery)Prevention of systemic embolism from: Acute myocardial infarction Valvular heart disease Atrial fibrillation Mechanical prosthetic heart valves (2.5-3.5) IS PATIENT ON ANTICOAGULANTS? NTHROMBOPLASTIN TIME [id number] 19:09:00* Test Item Value Reference Range Comments THROMBOPLASTIN TIME PARTIAL (test code=PTT) 31.1 seconds 25.0-36.5 IS PATIENT ON ANTICOAGULANTS? NCBC W/AUTO [id number] 18:58:00* Test Item Value Reference Range Comments WHITE BLOOD CELL (test code=WBC) 8.5 K/mm3 4.5-12.5 RED BLOOD CELL (test code=RBC) 3.04 mill/mm3 4.0-5.8 HEMOGLOBIN (test code=HGB) 8.9 gram/dL 13.0-17.5 HEMATOCRIT (test code=HCT) 28.8 % 42.0-52.0 MEAN CELL VOLUME (test code=MCV) 94.7 fL 80-98 MEAN CELL HGB (test code=MCH) 29.3 picogram 27.0-33.0 MEAN CELL HGB CONCETRATION (test code=MCHC) 30.9 gram/dL 33.0-36.0 RED CELL DISTRIBUTION WIDTH (test code=RDW) 13.0 % 11.6-16.2 RED CELL DISTRIBUTION WIDTH SD (test code=RDW-SD) 44.4 fL 37.0-51.0 PLATELET COUNT (test code=PLT) 138 K/mm3 150-450 MEAN PLATELET VOLUME (test code=MPV) 9.3 fL 6.7-11.0 NEUTROPHIL % (test code=NT%) 33.4 % 39.0-69.0 IMMATURE GRANULOCYTE % (test code=IG%) 0.2 % 0.0-5.0 LYMPHOCYTE % (test code=LY%) 54.4 % 25.0-55.0 MONOCYTE % (test code=MO%) 7.5 % 0.0-10.0 EOSINOPHIL % (test code=EO%) 4.0 % 0.0-5.0 BASOPHIL % (test code=BA%) 0.5 % 0.0-1.0 NUCLEATED RBC % (test code=NRBC%) 0.0 % 0-0 NEUTROPHIL # (test code=NT#) 2.83 K/mm3 1.8-7.7 IMMATURE GRANULOCYTE # (test code=IG#) 0.02 x10 3/uL 0-0.03 LYMPHOCYTE # (test code=LY#) 4.61 K/mm3 1.0-5.0 MONOCYTE # (test code=MO#) 0.64 K/mm3 0-0.8 EOSINOPHIL # (test code=EO#) 0.34 K/mm3 0.0-0.5 BASOPHIL # (test code=BA#) 0.04 K/mm3 0.0-0.2 NUCLEATED RBC # (test code=NRBC#) 0.00 K/mm3 0.0-0.1 - XR CHEST 2 [id number] 17:06:00 FAX: Juvenal Holloway MD [phone] Jones: St: ADM Name: SYEDA RUSHING [facility] : [birth year] 71 Age/S: 47/M [address] [facility] Unit #: [id number] Loc: V.3074 [place] [address] Phys: Juvenal Forde MD Acct: [id number] Dis Date: Status: ADM IN PHONE #: [phone] Exam Date: 10/14/2018 1701 FAX #: [phone] Reason: SOB EXAMS: CPT CODE: [id number] XR CHEST 2 V 15216 REASON FOR EXAM: SOB Exam Order Date: 10/14/2018 4:32 PM Ordering Nida: Juvenal Forde MD PROCEDURE: - XR CHEST 2 V COMPARISON: 09/05 FINDINGS: PA and lateral views of the chest show clear damaris gs without evidence of consolidation. No evidence of effusion. The heart s ize is within normal limits. Pulmonary vasculatures are unremarkable. The osseous structures are grossly intact. Stable appearance of right IJ tunneled dialysis catheter. IMPRESSION: No active disease. at 1701 Reported and signed by: Oscar Wilkinson M.D. CC: Juvenal Hillman MD Technologist: RT STEPHEN(R) Trnscrd Date/Time/By: 10/14/2018 (3767) : By: DeirdreL Orig Print D/T: S: 10/14/2018 (1504) PAGE 1 Signed Report [id number] 16:56:00* Test Item Value Reference Range Comments GLUBED (test code=GLUBED) 153 mg/dL 74-106 Performed by certified corking machine operator at [facility] - US GUIDANCE VASC [id number] 09:36:00 Name: PRIYASYEDA ALEXANDRU [facility] : 1970 Age/S: 47 / M [address] Unit #: [id number] Loc: [place] [address] Phys: Juvenal Forde MD Acct: [id number] Dis Date: Status: ADM IN PHONE #: [phone] Exam Date: 10/02/2018 1458 FAX #: [phone] Reason: EXAMS: CPT CODE: [id number] US GUIDANCE VASC ACCESS [id number] Fluoro Time: 0 DAP (Gy m2): 0 Air Kerma (mGy): 0 EXAM: Insertion of a non-tunneled central line with sonographic guidance; CPT: 10614, 73358; INFORMATION: Diabetic foot ulcer; end-stage renal disease; right IJ dialysis catheter in place. TECHNIQUE AND FINDINGS: After obtaining informed consent, sonography was performed, demonstrating a patent and compressible left internal jugular vein. Sonographic images were stored in PACS. The patient's skin in the left neck region was prepped and draped in the usual sterile fashion, applying all elements of maximal sterile barrier technique. Xylocaine was administered and using real-time sonographic guidance the left IJ was accessed with a micropuncture system, followed by insertion of an 032 guidewire. Sequential dilatation was performed and a 7 Swazi triple lumen central line was then inserted over the guidewire. Good blood return was noticed; the catheter was sutured to the skin and flushed with heparinized saline. There were no apparent co mplications. IMPRESSION: Successful insertion of a non-t unneled central line via left IJ access, using sonographic guidance. at 0936 Reported and signed by: Greg Dykes M.D. CC: Juvenal Forde MD Technologist: Zulema CLIFFORD(R) Trnscb Date/Time: 10/05/2018 (935) SarahGRW Orig Print D/T: S: 10/05/2018 (2038) PAGE 1 Signed Report BASIC METABOLIC [id number] 08:01:00* Test Item Value Reference Range Comments SODIUM (test code=NA) 136 mmol/L 136-145 POTASSIUM (test code=K) 5.4 mmol/L 3.5-5.1 CHLORIDE (test code=CL) 100.0 mmol/L 98-107 CARBON DIOXIDE (test code=CO2) 25.0 mmol/L 21-32 ANION GAP (test code=GAP) 16.4 10-20 GLUCOSE (test code=GLU) 83 mg/dL 74-106 BLOOD UREA NITROGEN (test code=BUN) 83 mg/dL 7-18 GLOMERULAR FILTRATION RATE (test code=GFR) 8 mL/min >=60 Estimated GFR by using Modified MDRD formula.Chronic kidney disease is defined as either kidney damageor GFR <60 mL/min/1.73 m2 for >3 months. CREATININE (test code=CREAT) 7.20 mg/dL 0.7-1.3 BUN/CREATININE RATIO (test code=BUN/CREA) 11.5 10-20 CALCIUM (test code=CA) 7.6 mg/dL 8.5-10.1 BASIC METABOLIC [id number] 07:57:00* Test Item Value Reference Range Comments SODIUM (test code=NA) 136 mmol/L 136-145 POTASSIUM (test code=K) 5.4 mmol/L 3.5-5.1 CHLORIDE (test code=CL) 100.0 mmol/L 98-107 CARBON DIOXIDE (test code=CO2) mmol/L 21-32 ANION GAP (test code=GAP) 10-20 GLUCOSE (test code=GLU) mg/dL 74-106 BLOOD UREA NITROGEN (test code=BUN) mg/dL 7-18 GLOMERULAR FILTRATION RATE (test code=GFR) mL/min >=60 CREATININE (test code=CREAT) mg/dL 0.7-1.3 BUN/CREATININE RATIO (test code=BUN/CREA) 10-20 CALCIUM (test code=CA) mg/dL 8.5-10.1 CBC W/O [id number] 07:48:00* Test Item Value Reference Range Comments WHITE BLOOD CELL (test code=WBC) 9.5 K/mm3 4.5-12.5 RED BLOOD CELL (test code=RBC) 2.99 mill/mm3 4.0-5.8 HEMOGLOBIN (test code=HGB) 9.2 gram/dL 13.0-17.5 HEMATOCRIT (test code=HCT) 27.8 % 42.0-52.0 MEAN CELL VOLUME (test code=MCV) 93.0 fL 80-98 MEAN CELL HGB (test code=MCH) 30.8 picogram 27.0-33.0 MEAN CELL HGB CONCETRATION (test code=MCHC) 33.1 gram/dL 33.0-36.0 RED CELL DISTRIBUTION WIDTH (test code=RDW) 12.4 % 11.6-16.2 PLATELET COUNT (test code=PLT) 117 K/mm3 150-450 MEAN PLATELET VOLUME (test code=MPV) 9.9 fL 6.7-11.0 [id number] 06:17:00* Test Item Value Reference Range Comments GLUBED (test code=GLUBED) 87 mg/dL 74-106 Performed by certified corking machine operator at [facility] CBC W/AUTO [id number] 13:20:00* Test Item Value Reference Range Comments WHITE BLOOD CELL (test code=WBC) 9.1 K/mm3 4.5-12.5 RED BLOOD CELL (test code=RBC) 3.10 mill/mm3 4.0-5.8 HEMOGLOBIN (test code=HGB) 9.5 gram/dL 13.0-17.5 HEMATOCRIT (test code=HCT) 28.4 % 42.0-52.0 MEAN CELL VOLUME (test code=MCV) 91.6 fL 80-98 MEAN CELL HGB (test code=MCH) 30.6 picogram 27.0-33.0 MEAN CELL HGB CONCETRATION (test code=MCHC) 33.5 gram/dL 33.0-36.0 RED CELL DISTRIBUTION WIDTH (test code=RDW) 12.4 % 11.6-16.2 RED CELL DISTRIBUTION WIDTH SD (test code=RDW-SD) 41.2 fL 37.0-51.0 PLATELET COUNT (test code=PLT) 107 K/mm3 150-450 MEAN PLATELET VOLUME (test code=MPV) 9.0 fL 6.7-11.0 NEUTROPHIL % (test code=NT%) 31.7 % 39.0-69.0 IMMATURE GRANULOCYTE % (test code=IG%) 0.2 % 0.0-5.0 LYMPHOCYTE % (test code=LY%) 53.9 % 25.0-55.0 MONOCYTE % (test code=MO%) 7.8 % 0.0-10.0 EOSINOPHIL % (test code=EO%) 6.1 % 0.0-5.0 BASOPHIL % (test code=BA%) 0.3 % 0.0-1.0 NUCLEATED RBC % (test code=NRBC%) 0.0 % 0-0 NEUTROPHIL # (test code=NT#) 2.87 K/mm3 1.8-7.7 IMMATURE GRANULOCYTE # (test code=IG#) 0.02 x10 3/uL 0-0.03 LYMPHOCYTE # (test code=LY#) 4.88 K/mm3 1.0-5.0 MONOCYTE # (test code=MO#) 0.71 K/mm3 0-0.8 EOSINOPHIL # (test code=EO#) 0.55 K/mm3 0.0-0.5 BASOPHIL # (test code=BA#) 0.03 K/mm3 0.0-0.2 NUCLEATED RBC # (test code=NRBC#) 0.00 K/mm3 0.0-0.1 MANUAL DIFF REQUIRED (test code=MDIFF) NO [id number] 12:21:00* Test Item Value Reference Range Comments GLUBED (test code=GLUBED) 106 mg/dL 74-106 Performed by certified corking machine operator at [facility] [id number] 08:15:00* Test Item Value Reference Range Comments GLUBED (test code=GLUBED) 101 mg/dL 74-106 Performed by certified corking machine operator at [facility] [id number] 06:11:00* Test Item Value Reference Range Comments GLUBED (test code=GLUBED) 119 mg/dL 74-106 Performed by certified corking machine operator at [facility] [id number] 21:55:00* Test Item Value Reference Range Comments GLUBED (test code=GLUBED) 98 mg/dL 74-106 Performed by certified corking machine operator at [facility] [id number] 16:44:00* Test Item Value Reference Range Comments GLUBED (test code=GLUBED) 66 mg/dL 74-106 Performed by certified corking machine operator at [facility] [id number] 11:51:00* Test Item Value Reference Range Comments GLUBED (test code=GLUBED) 85 mg/dL 74-106 Performed by certified corking machine operator at [facility] BASIC METABOLIC [id number] 06:00:00* Test Item Value Reference Range Comments SODIUM (test code=NA) 139 mmol/L 136-145 POTASSIUM (test code=K) 4.2 mmol/L 3.5-5.1 CHLORIDE (test code=CL) 102.0 mmol/L 98-107 CARBON DIOXIDE (test code=CO2) 29.0 mmol/L 21-32 ANION GAP (test code=GAP) 12.2 10-20 GLUCOSE (test code=GLU) 73 mg/dL 74-106 BLOOD UREA NITROGEN (test code=BUN) 46 mg/dL 7-18 RESULT VERIFIED BY REPEAT ANALYSIS GLOMERULAR FILTRATION RATE (test code=GFR) 15 mL/min >=60 Estimated GFR by using Modified MDRD formula.Chronic kidney disease is defined as either kidney damageor GFR <60 mL/min/1.73 m2 for >3 months. CREATININE (test code=CREAT) 4.30 mg/dL 0.7-1.3 BUN/CREATININE RATIO (test code=BUN/CREA) 10.7 10-20 CALCIUM (test code=CA) 7.3 mg/dL 8.5-10.1 [id number] 06:00:00* Test Item Value Reference Range Comments PHOSPHORUS (test code=PHOS) 7.0 mg/dL 2.5-4.9 [id number] 06:00:00* Test Item Value Reference Range Comments MAGNESIUM (test code=MAG) 1.5 mg/dL 1.8-2.4 [id number] 05:58:00* Test Item Value Reference Range Comments GLUBED (test code=GLUBED) 71 mg/dL 74-106 Performed by certified corking machine operator at [facility] BASIC METABOLIC [id number] 05:44:00* Test Item Value Reference Range Comments SODIUM (test code=NA) 139 mmol/L 136-145 POTASSIUM (test code=K) 4.2 mmol/L 3.5-5.1 CHLORIDE (test code=CL) 102.0 mmol/L 98-107 CARBON DIOXIDE (test code=CO2) mmol/L 21-32 ANION GAP (test code=GAP) 10-20 GLUCOSE (test code=GLU) mg/dL 74-106 BLOOD UREA NITROGEN (test code=BUN) mg/dL 7-18 GLOMERULAR FILTRATION RATE (test code=GFR) mL/min >=60 CREATININE (test code=CREAT) mg/dL 0.7-1.3 BUN/CREATININE RATIO (test code=BUN/CREA) 10-20 CALCIUM (test code=CA) mg/dL 8.5-10.1 [id number] 05:44:00* Test Item Value Reference Range Comments PHOSPHORUS (test code=PHOS) mg/dL 2.5-4.9 [id number] 05:44:00* Test Item Value Reference Range Comments MAGNESIUM (test code=MAG) mg/dL 1.8-2.4 [id number] 20:25:00* Test Item Value Reference Range Comments GLUBED (test code=GLUBED) 213 mg/dL 74-106 Performed by certified corking machine operator at [facility] [id number] 16:23:00* Test Item Value Reference Range Comments GLUBED (test code=GLUBED) 173 mg/dL 74-106 Performed by certified corking machine operator at [facility] - XR CHEST 1 [id number] 15:25:00 FAX: Juvenal Holloway MD [phone] Jones: St: ADM Name: SYEDA RUSHING [facility] : 11/[birth year]/18 71 Age/S: 47/M [address] [facility] Unit #: [id number] Loc: V.2060 [place] [address] Phys: Greg Dykes MD Acct: [id number] Dis Date: Status: ADM IN PHONE #: [phone] Exam Date: 10/02/2018 1520 FAX #: [phone] Reason: ESRD; osteomyelitis; st.p. central line; EXAMS: CPT CODE: [id number] XR CHEST 1 V 70592 REASON FOR EXAM: ESRD; ost eomyelitis; st.p. central line; Exam Order Date: 10/02/2018 3:03 PM Ordering M.D.: Greg Dykes MD PROCEDURE: - XR CHEST 1 V COMPARISON: September 23, 2018. FINDINGS: The lungs are clear. There is no pleural effusion or pneumothorax. Pulmonary vascularity is within normal limits. Cardiomediastinal silhouette is normal in size for technique. The mediastinal contours are w ithin normal limits. The bones and the upper abdomen are unchanged . Stable appearance of right-sided dialysis catheter with its tip in the right atrium. Interval placement of a left-sided central venous catheter with its tip at the cavoatrial junction. IMP RESSION: No acute cardiopulmonary process. Tip of the left-side d central venous catheter is at the cavoatrial junction. at 1525 Reported and signed by: Andria Dwyer M.D. CC: Juvenal Forde MD Technologist: RACHELE MONTAGUE; Jerry Cantu, RT(R Trnscrd Date/Time/By: 10/02/2018 (4214) : By: [email or web address] Orig Print D/T: S: 10/02/2018 (4556) PAGE 1 Signed Report [id number] 10:52:00* Test Item Value Reference Range Comments TROPONIN-I (test code=TROPI) <0.015 ng/mL 0-0.045 CBC W/AUTO [id number] 10:52:00* Test Item Value Reference Range Comments WHITE BLOOD CELL (test code=WBC) 7.4 K/mm3 4.5-12.5 RED BLOOD CELL (test code=RBC) 3.29 mill/mm3 4.0-5.8 HEMOGLOBIN (test code=HGB) 9.6 gram/dL 13.0-17.5 HEMATOCRIT (test code=HCT) 31.6 % 42.0-52.0 MEAN CELL VOLUME (test code=MCV) 96.0 fL 80-98 MEAN CELL HGB (test code=MCH) 29.2 picogram 27.0-33.0 MEAN CELL HGB CONCETRATION (test code=MCHC) 30.4 gram/dL 33.0-36.0 RED CELL DISTRIBUTION WIDTH (test code=RDW) 12.6 % 11.6-16.2 RED CELL DISTRIBUTION WIDTH SD (test code=RDW-SD) 44.2 fL 37.0-51.0 PLATELET COUNT (test code=PLT) 120 K/mm3 150-450 MEAN PLATELET VOLUME (test code=MPV) 10.0 fL 6.7-11.0 NEUTROPHIL % (test code=NT%) 36.3 % 39.0-69.0 IMMATURE GRANULOCYTE % (test code=IG%) 0.3 % 0.0-5.0 LYMPHOCYTE % (test code=LY%) 48.5 % 25.0-55.0 MONOCYTE % (test code=MO%) 9.1 % 0.0-10.0 EOSINOPHIL % (test code=EO%) 5.5 % 0.0-5.0 BASOPHIL % (test code=BA%) 0.3 % 0.0-1.0 NUCLEATED RBC % (test code=NRBC%) 0.0 % 0-0 NEUTROPHIL # (test code=NT#) 2.70 K/mm3 1.8-7.7 IMMATURE GRANULOCYTE # (test code=IG#) 0.02 x10 3/uL 0-0.03 LYMPHOCYTE # (test code=LY#) 3.61 K/mm3 1.0-5.0 MONOCYTE # (test code=MO#) 0.68 K/mm3 0-0.8 EOSINOPHIL # (test code=EO#) 0.41 K/mm3 0.0-0.5 BASOPHIL # (test code=BA#) 0.02 K/mm3 0.0-0.2 NUCLEATED RBC # (test code=NRBC#) 0.00 K/mm3 0.0-0.1 MANUAL DIFF REQUIRED (test code=MDIFF) NO, ONLY SCAN NEEDED DIFFERENTIAL [id number] 10:52:00* Test Item Value Reference Range Comments STAIN ACCEPTABILITY (test code=STN ACCEPTABLE) STAIN ACCEPTABLE MORPHOLOGY COMMENT (test code=MOC) NORMAL PLATELET ESTIMATE (test code=PLTEST) DECREASED PLATELET MORPHOLOGY (test code=PLTMORPH) NORMAL AG HEPAT B [id number] 07:51:00* Test Item Value Reference Range Comments AG HEPAT B SURF (test code=HBSAG) Nonreactive Index Nonreactive CBC W/AUTO [id number] 07:23:00* Test Item Value Reference Range Comments WHITE BLOOD CELL (test code=WBC) 7.4 K/mm3 4.5-12.5 RED BLOOD CELL (test code=RBC) 3.29 mill/mm3 4.0-5.8 HEMOGLOBIN (test code=HGB) 9.6 gram/dL 13.0-17.5 HEMATOCRIT (test code=HCT) 31.6 % 42.0-52.0 MEAN CELL VOLUME (test code=MCV) 96.0 fL 80-98 MEAN CELL HGB (test code=MCH) 29.2 picogram 27.0-33.0 MEAN CELL HGB CONCETRATION (test code=MCHC) 30.4 gram/dL 33.0-36.0 RED CELL DISTRIBUTION WIDTH (test code=RDW) 12.6 % 11.6-16.2 RED CELL DISTRIBUTION WIDTH SD (test code=RDW-SD) 44.2 fL 37.0-51.0 PLATELET COUNT (test code=PLT) 120 K/mm3 150-450 MEAN PLATELET VOLUME (test code=MPV) 10.0 fL 6.7-11.0 NEUTROPHIL % (test code=NT%) 36.3 % 39.0-69.0 IMMATURE GRANULOCYTE % (test code=IG%) 0.3 % 0.0-5.0 LYMPHOCYTE % (test code=LY%) 48.5 % 25.0-55.0 MONOCYTE % (test code=MO%) 9.1 % 0.0-10.0 EOSINOPHIL % (test code=EO%) 5.5 % 0.0-5.0 BASOPHIL % (test code=BA%) 0.3 % 0.0-1.0 NUCLEATED RBC % (test code=NRBC%) 0.0 % 0-0 NEUTROPHIL # (test code=NT#) 2.70 K/mm3 1.8-7.7 IMMATURE GRANULOCYTE # (test code=IG#) 0.02 x10 3/uL 0-0.03 LYMPHOCYTE # (test code=LY#) 3.61 K/mm3 1.0-5.0 MONOCYTE # (test code=MO#) 0.68 K/mm3 0-0.8 EOSINOPHIL # (test code=EO#) 0.41 K/mm3 0.0-0.5 BASOPHIL # (test code=BA#) 0.02 K/mm3 0.0-0.2 NUCLEATED RBC # (test code=NRBC#) 0.00 K/mm3 0.0-0.1 MANUAL DIFF REQUIRED (test code=MDIFF) NO, ONLY SCAN NEEDED DIFFERENTIAL [id number] 07:23:00* Test Item Value Reference Range Comments STAIN ACCEPTABILITY (test code=STN ACCEPTABLE) CABOT RINGS (test code=CAB) MORPHOLOGY COMMENT (test code=MOC) PLATELET ESTIMATE (test code=PLTEST) PLATELET MORPHOLOGY (test code=PLTMORPH) CBC W/AUTO [id number] 07:23:00* Test Item Value Reference Range Comments WHITE BLOOD CELL (test code=WBC) 7.4 K/mm3 4.5-12.5 RED BLOOD CELL (test code=RBC) 3.29 mill/mm3 4.0-5.8 HEMOGLOBIN (test code=HGB) 9.6 gram/dL 13.0-17.5 HEMATOCRIT (test code=HCT) 31.6 % 42.0-52.0 MEAN CELL VOLUME (test code=MCV) 96.0 fL 80-98 MEAN CELL HGB (test code=MCH) 29.2 picogram 27.0-33.0 MEAN CELL HGB CONCETRATION (test code=MCHC) 30.4 gram/dL 33.0-36.0 RED CELL DISTRIBUTION WIDTH (test code=RDW) 12.6 % 11.6-16.2 RED CELL DISTRIBUTION WIDTH SD (test code=RDW-SD) 44.2 fL 37.0-51.0 PLATELET COUNT (test code=PLT) 120 K/mm3 150-450 MEAN PLATELET VOLUME (test code=MPV) 10.0 fL 6.7-11.0 NEUTROPHIL % (test code=NT%) 36.3 % 39.0-69.0 IMMATURE GRANULOCYTE % (test code=IG%) 0.3 % 0.0-5.0 LYMPHOCYTE % (test code=LY%) 48.5 % 25.0-55.0 MONOCYTE % (test code=MO%) 9.1 % 0.0-10.0 EOSINOPHIL % (test code=EO%) 5.5 % 0.0-5.0 BASOPHIL % (test code=BA%) 0.3 % 0.0-1.0 NUCLEATED RBC % (test code=NRBC%) 0.0 % 0-0 NEUTROPHIL # (test code=NT#) 2.70 K/mm3 1.8-7.7 IMMATURE GRANULOCYTE # (test code=IG#) 0.02 x10 3/uL 0-0.03 LYMPHOCYTE # (test code=LY#) 3.61 K/mm3 1.0-5.0 MONOCYTE # (test code=MO#) 0.68 K/mm3 0-0.8 EOSINOPHIL # (test code=EO#) 0.41 K/mm3 0.0-0.5 BASOPHIL # (test code=BA#) 0.02 K/mm3 0.0-0.2 NUCLEATED RBC # (test code=NRBC#) 0.00 K/mm3 0.0-0.1 MANUAL DIFF REQUIRED (test code=MDIFF) NO, ONLY SCAN NEEDED DIFFERENTIAL [id number] 07:23:00* Test Item Value Reference Range Comments STAIN ACCEPTABILITY (test code=STN ACCEPTABLE) CABOT RINGS (test code=CAB) MORPHOLOGY COMMENT (test code=MOC) PLATELET ESTIMATE (test code=PLTEST) PLATELET MORPHOLOGY (test code=PLTMORPH) CBC W/AUTO [id number] 07:23:00* Test Item Value Reference Range Comments WHITE BLOOD CELL (test code=WBC) 7.4 K/mm3 4.5-12.5 RED BLOOD CELL (test code=RBC) 3.29 mill/mm3 4.0-5.8 HEMOGLOBIN (test code=HGB) 9.6 gram/dL 13.0-17.5 HEMATOCRIT (test code=HCT) 31.6 % 42.0-52.0 MEAN CELL VOLUME (test code=MCV) 96.0 fL 80-98 MEAN CELL HGB (test code=MCH) 29.2 picogram 27.0-33.0 MEAN CELL HGB CONCETRATION (test code=MCHC) 30.4 gram/dL 33.0-36.0 RED CELL DISTRIBUTION WIDTH (test code=RDW) 12.6 % 11.6-16.2 RED CELL DISTRIBUTION WIDTH SD (test code=RDW-SD) 44.2 fL 37.0-51.0 PLATELET COUNT (test code=PLT) 120 K/mm3 150-450 MEAN PLATELET VOLUME (test code=MPV) 10.0 fL 6.7-11.0 NEUTROPHIL % (test code=NT%) 36.3 % 39.0-69.0 IMMATURE GRANULOCYTE % (test code=IG%) 0.3 % 0.0-5.0 LYMPHOCYTE % (test code=LY%) 48.5 % 25.0-55.0 MONOCYTE % (test code=MO%) 9.1 % 0.0-10.0 EOSINOPHIL % (test code=EO%) 5.5 % 0.0-5.0 BASOPHIL % (test code=BA%) 0.3 % 0.0-1.0 NUCLEATED RBC % (test code=NRBC%) 0.0 % 0-0 NEUTROPHIL # (test code=NT#) 2.70 K/mm3 1.8-7.7 IMMATURE GRANULOCYTE # (test code=IG#) 0.02 x10 3/uL 0-0.03 LYMPHOCYTE # (test code=LY#) 3.61 K/mm3 1.0-5.0 MONOCYTE # (test code=MO#) 0.68 K/mm3 0-0.8 EOSINOPHIL # (test code=EO#) 0.41 K/mm3 0.0-0.5 BASOPHIL # (test code=BA#) 0.02 K/mm3 0.0-0.2 NUCLEATED RBC # (test code=NRBC#) 0.00 K/mm3 0.0-0.1 MANUAL DIFF REQUIRED (test code=MDIFF) NO, ONLY SCAN NEEDED DIFFERENTIAL [id number] 07:23:00* Test Item Value Reference Range Comments STAIN ACCEPTABILITY (test code=STN ACCEPTABLE) MORPHOLOGY COMMENT (test code=MOC) PLATELET ESTIMATE (test code=PLTEST) PLATELET MORPHOLOGY (test code=PLTMORPH) CBC W/AUTO [id number] 07:23:00* Test Item Value Reference Range Comments WHITE BLOOD CELL (test code=WBC) 7.4 K/mm3 4.5-12.5 RED BLOOD CELL (test code=RBC) 3.29 mill/mm3 4.0-5.8 HEMOGLOBIN (test code=HGB) 9.6 gram/dL 13.0-17.5 HEMATOCRIT (test code=HCT) 31.6 % 42.0-52.0 MEAN CELL VOLUME (test code=MCV) 96.0 fL 80-98 MEAN CELL HGB (test code=MCH) 29.2 picogram 27.0-33.0 MEAN CELL HGB CONCETRATION (test code=MCHC) 30.4 gram/dL 33.0-36.0 RED CELL DISTRIBUTION WIDTH (test code=RDW) 12.6 % 11.6-16.2 RED CELL DISTRIBUTION WIDTH SD (test code=RDW-SD) 44.2 fL 37.0-51.0 PLATELET COUNT (test code=PLT) 120 K/mm3 150-450 MEAN PLATELET VOLUME (test code=MPV) 10.0 fL 6.7-11.0 NEUTROPHIL % (test code=NT%) 36.3 % 39.0-69.0 IMMATURE GRANULOCYTE % (test code=IG%) 0.3 % 0.0-5.0 LYMPHOCYTE % (test code=LY%) 48.5 % 25.0-55.0 MONOCYTE % (test code=MO%) 9.1 % 0.0-10.0 EOSINOPHIL % (test code=EO%) 5.5 % 0.0-5.0 BASOPHIL % (test code=BA%) 0.3 % 0.0-1.0 NUCLEATED RBC % (test code=NRBC%) 0.0 % 0-0 NEUTROPHIL # (test code=NT#) 2.70 K/mm3 1.8-7.7 IMMATURE GRANULOCYTE # (test code=IG#) 0.02 x10 3/uL 0-0.03 LYMPHOCYTE # (test code=LY#) 3.61 K/mm3 1.0-5.0 MONOCYTE # (test code=MO#) 0.68 K/mm3 0-0.8 EOSINOPHIL # (test code=EO#) 0.41 K/mm3 0.0-0.5 BASOPHIL # (test code=BA#) 0.02 K/mm3 0.0-0.2 NUCLEATED RBC # (test code=NRBC#) 0.00 K/mm3 0.0-0.1 MANUAL DIFF REQUIRED (test code=MDIFF) NO, ONLY SCAN NEEDED DIFFERENTIAL [id number] 07:23:00* Test Item Value Reference Range Comments STAIN ACCEPTABILITY (test code=STN ACCEPTABLE) CABOT RINGS (test code=CAB) MORPHOLOGY COMMENT (test code=MOC) PLATELET ESTIMATE (test code=PLTEST) PLATELET MORPHOLOGY (test code=PLTMORPH) BASIC METABOLIC [id number] 07:18:00* Test Item Value Reference Range Comments SODIUM (test code=NA) 143 mmol/L 136-145 POTASSIUM (test code=K) 5.5 mmol/L 3.5-5.1 CHLORIDE (test code=CL) 115.0 mmol/L 98-107 CARBON DIOXIDE (test code=CO2) 18.0 mmol/L 21-32 ANION GAP (test code=GAP) 15.5 10-20 GLUCOSE (test code=GLU) 125 mg/dL 74-106 BLOOD UREA NITROGEN (test code=BUN) 63 mg/dL 7-18 GLOMERULAR FILTRATION RATE (test code=GFR) 13 mL/min >=60 Estimated GFR by using Modified MDRD formula.Chronic kidney disease is defined as either kidney damageor GFR <60 mL/min/1.73 m2 for >3 months. CREATININE (test code=CREAT) 5.00 mg/dL 0.7-1.3 BUN/CREATININE RATIO (test code=BUN/CREA) 12.6 10-20 CALCIUM (test code=CA) 7.7 mg/dL 8.5-10.1 BASIC METABOLIC [id number] 07:09:00* Test Item Value Reference Range Comments SODIUM (test code=NA) 143 mmol/L 136-145 POTASSIUM (test code=K) 5.5 mmol/L 3.5-5.1 CHLORIDE (test code=CL) 115.0 mmol/L 98-107 CARBON DIOXIDE (test code=CO2) mmol/L 21-32 ANION GAP (test code=GAP) 10-20 GLUCOSE (test code=GLU) mg/dL 74-106 BLOOD UREA NITROGEN (test code=BUN) mg/dL 7-18 GLOMERULAR FILTRATION RATE (test code=GFR) mL/min >=60 CREATININE (test code=CREAT) mg/dL 0.7-1.3 BUN/CREATININE RATIO (test code=BUN/CREA) 10-20 CALCIUM (test code=CA) mg/dL 8.5-10.1 [id number] 06:26:00* Test Item Value Reference Range Comments TROPONIN-I (test code=TROPI) <0.015 ng/mL 0-0.045 [id number] 05:44:00* Test Item Value Reference Range Comments GLUBED (test code=GLUBED) 123 mg/dL 74-106 Performed by certified corking machine operator at [facility] - CT ABD PELVIS W/O [id number] 23:24:00 Name: SYEDA POWERS [facility] : 1970 Age/S: 47 / M [address] [facility] Unit #: [id number] Loc: [place] [address] Phys: Juvenal Forde MD Acct: [id number] Dis Date: Status: ADM IN PHONE #: [phone] Exam Date: 10/01/20182217 FAX #: [phone] Reason: ABD PAIN EXAMS: CPT CODE: [id number] CT ABD PELVIS W/O CONT 98539 CT abdomen and pelvis without IV contrast. Indication: Abdominal pain Location: R16 Comparison: June 22, 2018 Technique: CT images of the abdomen and pelvis were obtained from the diaphragm to the pubic symphysis without the administration of intravenous contrast contrast. Coronal reformats are provided. One or more of the following dose reduction techniques were used: Automated exposure control, adjustment of the mA and/or kV according to patient size, and/or utilization of iterative reconstruction technique. Findings: Lungs bases: Unremarkable. Liver: Noncontrast appearance is unremarkable. Gallbladder: Surgically absent Pancreas: Noncontrast appearance is unremarkable. Spleen: Noncontrast appearance is unremarkable. Adrenal glands: Noncontrast appearance is unremarkable. Kidneys: Noncontrast appearance is unremarkable. Bowel: No bowel obstruction. A nonobstructed loop of bowel is again seen within the patient's umbilical hernia. The patient's bowel surgical anastomosis appear patent. The appendix is unremarkable. Peritoneum: No ascites. No free air Lymph nodes: Retroperitoneal and inguinal lymphadenopathy is again seen with nodes measuring up to 1.4 cm within the retroperitoneum and inguinal nodes measuring up to 1.3 cm. Pelvis: Mild bladder wall thickening is seen, cystitis must be clinically excluded. Skeletal: No acute fracture.. Impression: Mild bladder wall thickening is seen, cystitis must be clinically excluded, otherwise although limited by the absence of IV contrast, no definite acute abnormality is seen within the abdomen and pelvis to explain the patient's symptomology Multiple additional findings as detailed above PAGE 1 Signed Report (CONTINUED) Name: SYEDA POWERS [facility] : 1970 Age/S: 47 / M [address] [facility] Unit #: [id number] Loc: [place] [address] Phys: Juvenal Forde MD Acct: [id number] Dis Date: Status: ADM IN PHONE #: [phone] Exam Date: 10/01/2018 2218 FAX #: [phone] Reason: ABD PAIN EXAMS: CPT CODE: [id number] CT ABD PELVIS W/O CONT 13231 <Continued> at 8524 Reported and signed by: Xi Whitaker M.D. CC: Juvenal Forde MD Technologist:Courtney garnett RT(R) CTDI: DLP: Trnscb Date/Time: 10/01/2018 (2 324) [id number] Orig Print D/T: S: 10/01/2018 (2971) CTDI: DLP: PAGE 2 Signed Report - XR CHEST 2 [id number] 22:58:00 FAX: Juvenal Holloway MD [phone] Jones: St: ADM Name: SYEDA RUSHING [facility] : [birth year] 71 Age/S: 47/M [address] [facility] Unit #: [id number] Loc: V.2059 [place] [address] Phys: Juvenal Forde MD Acct: [id number] Dis Date: Status: ADM IN PHONE #: [phone] Exam Date: 10/01/20182236 FAX #: [phone] Reason: PER ORDER EXAMS: CPT CODE: [id number] XR CHEST 2 V 18989 REASON FOR EXAM: PER ORDER Exam Order Date: 10/01/2018 9:28 PM Ordering M.DTracy: Juvenal Forde MD PROCEDURE: - XR CHEST 2 V COMPARISON: August 31, 2018. FINDINGS: No evidence of ac [place] infiltrate, pleural effusion, or pneumothorax. Stable right-si ded dialysis catheter with its tip at the cavoatrial junction. Stable appearance of cardiac silhouette and pulmonary vascularity. The visualized bones and the upper abdomen are unchanged. IMPRESSION: No acute cardiopulmonary process. Electro nically Signed by Andria Dwyer M.D. on 10/02/19 19 at 4388 Reported and signed by: Andria mclaughlin M.D. CC: Juvenal Forde MD Technologist: Emilee Harvey scrd Date/Time/By: 10/01/2018 (7372) : By: [email or web address] Orig Print D/T: S : 10/01/2018 (1331) PAGE 1 Signed Report B-TYPE NATRIURETIC [id number] 22:44:00* Test Item Value Reference Range Comments B-TYPE NATRIURETIC PEPTIDE (test code=BNP) 309.69 pgram/mL 0-100 Has Patient received Natrecor? NOCOMPREHENSIVE METABOLIC [id number] 22:43:00* Test Item Value Reference Range Comments SODIUM (test code=NA) 143 mmol/L 136-145 POTASSIUM (test code=K) 5.0 mmol/L 3.5-5.1 CHLORIDE (test code=CL) 113.0 mmol/L 98-107 CARBON DIOXIDE (test code=CO2) 23.0 mmol/L 21-32 ANION GAP (test code=GAP) 12.0 10-20 GLUCOSE (test code=GLU) 178 mg/dL 74-106 BLOOD UREA NITROGEN (test code=BUN) 64 mg/dL 7-18 GLOMERULAR FILTRATION RATE (test code=GFR) 12 mL/min >=60 Estimated GFR by using Modified MDRD formula.Chronic kidney disease is defined as either kidney damageor GFR <60 mL/min/1.73 m2 for >3 months. CREATININE (test code=CREAT) 5.20 mg/dL 0.7-1.3 BUN/CREATININE RATIO (test code=BUN/CREA) 12.3 10-20 TOTAL PROTEIN (test code=PROT) 7.7 gram/dL 6.4-8.2 ALBUMIN (test code=ALB) 3.3 g/dL 3.4-5.0 GLOBULIN (test code=GLOB) 4.4 gram/dL 2.7-4.2 ALBUMIN/GLOBULIN RATIO (test code=A/G) 0.8 0.75-1.50 CALCIUM (test code=CA) 8.2 mg/dL 8.5-10.1 BILIRUBIN TOTAL (test code=BILT) 0.30 mg/dL 0.0-1.0 SGOT/AST (test code=AST) 19 IUnit/L 15-37 SGPT/ALT (test code=ALT) 18 IUnit/L 12-78 ALKALINE PHOSPHATASE TOTAL (test code=ALKP) 95 IUnit/L 45-117 Note change in reference range due to change in reagent. T4 (THYROXINE)2018-10-01 22:43:00* Test Item Value Reference Range Comments T4 (THYROXINE) (test code=T4) 7.0 ug/dL 4.5-13.9 THYROID STIMULATING [id number] 22:43:00* Test Item Value Reference Range Comments THYROID STIMULATING HORMONE (test code=TSH) 1.840 uIU/mL 0.36-3.74 TSH REFERENCE RANGES: EUTHYROID: 0.35 - 4.3 mIU/mL HYPO : > 5.5 mIU/mL HYPER : < 0.35 mIU/mL [id number] 22:43:00* Test Item Value Reference Range Comments TROPONIN-I (test code=TROPI) <0.015 ng/mL 0-0.045 LACTIC [id number] 22:34:00* Test Item Value Reference Range Comments LACTIC ACID (test code=LACT) 1.1 mmol/L 0.4-1.9 C REACTIVE [id number] 22:34:00* Test Item Value Reference Range Comments C REACTIVE PROTEIN (test code=CRP) 0.73 mg/dL 0-0.3 COMPREHENSIVE METABOLIC [id number] 22:30:00* Test Item Value Reference Range Comments SODIUM (test code=NA) 143 mmol/L 136-145 POTASSIUM (test code=K) 5.0 mmol/L 3.5-5.1 CHLORIDE (test code=CL) 113.0 mmol/L 98-107 CARBON DIOXIDE (test code=CO2) mmol/L 21-32 ANION GAP (test code=GAP) 10-20 GLUCOSE (test code=GLU) mg/dL 74-106 BLOOD UREA NITROGEN (test code=BUN) mg/dL 7-18 GLOMERULAR FILTRATION RATE (test code=GFR) mL/min >=60 CREATININE (test code=CREAT) mg/dL 0.7-1.3 BUN/CREATININE RATIO (test code=BUN/CREA) 10-20 TOTAL PROTEIN (test code=PROT) gram/dL 6.4-8.2 ALBUMIN (test code=ALB) g/dL 3.4-5.0 GLOBULIN (test code=GLOB) gram/dL 2.7-4.2 ALBUMIN/GLOBULIN RATIO (test code=A/G) 0.75-1.50 CALCIUM (test code=CA) mg/dL 8.5-10.1 BILIRUBIN TOTAL (test code=BILT) mg/dL 0.0-1.0 SGOT/AST (test code=AST) IUnit/L 15-37 SGPT/ALT (test code=ALT) IUnit/L 12-78 ALKALINE PHOSPHATASE TOTAL (test code=ALKP) IUnit/L 45-117 T4 (THYROXINE)2018-10-01 22:30:00* Test Item Value Reference Range Comments T4 (THYROXINE) (test code=T4) ug/dL 4.5-13.9 THYROID STIMULATING [id number] 22:30:00* Test Item Value Reference Range Comments THYROID STIMULATING HORMONE (test code=TSH) uIU/mL 0.36-3.74 [id number] 22:30:00* Test Item Value Reference Range Comments TROPONIN-I (test code=TROPI) ng/mL 0-0.045 PROTHROMBIN [id number] 22:27:00* Test Item Value Reference Range Comments PROTHROMBIN TIME PATIENT (test code=PTP) 10.5 seconds 9.0-14.0 INTERNATIONAL NORMAL RATIO (test code=INR) 0.9 0.8-1.2 The therapeutic range for oral anticoagulant therapy formost indications is an international normalized ratio (INR)of between 2.0 and 3.0. The recommended therapeutic INRrange for various clinical situations is listed below: Clinical Situation INR range Pulmonary e mbolism treatment (2.0-3.0)Venous thrombosis treatmentVenous thrombosis prophylaxis (high risk surgery)Prevention of systemic embolism from: Acute myocardial infarction Valvular heart disease Atrial fibrillation Mechanical prosthetic heart valves (2.5-3.5) IS PATIENT ON ANTICOAGULANTS? NTHROMBOPLASTIN TIME [id number] 22:27:00* Test Item Value Reference Range Comments THROMBOPLASTIN TIME PARTIAL (test code=PTT) 30.7 seconds 25.0-36.5 IS PATIENT ON ANTICOAGULANTS? NCBC W/AUTO [id number] 22:19:00* Test Item Value Reference Range Comments WHITE BLOOD CELL (test code=WBC) 7.6 K/mm3 4.5-12.5 RED BLOOD CELL (test code=RBC) 3.56 mill/mm3 4.0-5.8 HEMOGLOBIN (test code=HGB) 10.5 gram/dL 13.0-17.5 HEMATOCRIT (test code=HCT) 33.5 % 42.0-52.0 MEAN CELL VOLUME (test code=MCV) 94.1 fL 80-98 MEAN CELL HGB (test code=MCH) 29.5 picogram 27.0-33.0 MEAN CELL HGB CONCETRATION (test code=MCHC) 31.3 gram/dL 33.0-36.0 RED CELL DISTRIBUTION WIDTH (test code=RDW) 12.5 % 11.6-16.2 RED CELL DISTRIBUTION WIDTH SD (test code=RDW-SD) 43.4 fL 37.0-51.0 PLATELET COUNT (test code=PLT) 133 K/mm3 150-450 MEAN PLATELET VOLUME (test code=MPV) 9.1 fL 6.7-11.0 NEUTROPHIL % (test code=NT%) 36.2 % 39.0-69.0 IMMATURE GRANULOCYTE % (test code=IG%) 0.3 % 0.0-5.0 LYMPHOCYTE % (test code=LY%) 48.3 % 25.0-55.0 MONOCYTE % (test code=MO%) 8.5 % 0.0-10.0 EOSINOPHIL % (test code=EO%) 6.2 % 0.0-5.0 BASOPHIL % (test code=BA%) 0.5 % 0.0-1.0 NUCLEATED RBC % (test code=NRBC%) 0.0 % 0-0 NEUTROPHIL # (test code=NT#) 2.77 K/mm3 1.8-7.7 IMMATURE GRANULOCYTE # (test code=IG#) 0.02 x10 3/uL 0-0.03 LYMPHOCYTE # (test code=LY#) 3.69 K/mm3 1.0-5.0 MONOCYTE # (test code=MO#) 0.65 K/mm3 0-0.8 EOSINOPHIL # (test code=EO#) 0.47 K/mm3 0.0-0.5 BASOPHIL # (test code=BA#) 0.04 K/mm3 0.0-0.2 NUCLEATED RBC # (test code=NRBC#) 0.00 K/mm3 0.0-0.1 MANUAL DIFF REQUIRED (test code=MDIFF) NO [id number] 21:04:00* Test Item Value Reference Range Comments GLUBED (test code=GLUBED) 151 mg/dL 74-106 Performed by certified corking machine operator at [facility] [id number] 09:51:00* Test Item Value Reference Range Comments GLUBED (test code=GLUBED) 129 mg/dL 74-106 Performed by certified corking machine operator at [facility] [id number] 11:48:00* Test Item Value Reference Range Comments GLUBED (test code=GLUBED) 141 mg/dL 74-106 Performed by certified corking machine operator at [facility] [id number] 08:11:00* Test Item Value Reference Range Comments GLUBED (test code=GLUBED) 202 mg/dL 74-106 Performed by certified [facility] [facility] BASIC METABOLIC [id number] 07:47:00* Test Item Value Reference Range Comments SODIUM (test code=NA) 141 mmol/L 136-145 POTASSIUM (test code=K) 5.0 mmol/L 3.5-5.1 CHLORIDE (test code=CL) 105.0 mmol/L 98-107 CARBON DIOXIDE (test code=CO2) 28.0 mmol/L 21-32 ANION GAP (test code=GAP) 13.0 10-20 GLUCOSE (test code=GLU) 246 mg/dL 74-106 BLOOD UREA NITROGEN (test code=BUN) 42 mg/dL 7-18 RESULT VERIFIED BY REPEAT ANALYSIS GLOMERULAR FILTRATION RATE (test code=GFR) 13 mL/min >=60 Estimated GFR by using Modified MDRD formula.Chronic kidney disease is defined as either kidney damageor GFR <60 mL/min/1.73 m2 for >3 months. CREATININE (test code=CREAT) 4.70 mg/dL 0.7-1.3 BUN/CREATININE RATIO (test code=BUN/CREA) 8.9 10-20 CALCIUM (test code=CA) 7.9 mg/dL 8.5-10.1 BASIC METABOLIC [id number] 07:38:00* Test Item Value Reference Range Comments SODIUM (test code=NA) 141 mmol/L 136-145 POTASSIUM (test code=K) 5.0 mmol/L 3.5-5.1 CHLORIDE (test code=CL) 105.0 mmol/L 98-107 CARBON DIOXIDE (test code=CO2) mmol/L 21-32 ANION GAP (test code=GAP) 10-20 GLUCOSE (test code=GLU) mg/dL 74-106 BLOOD UREA NITROGEN (test code=BUN) mg/dL 7-18 GLOMERULAR FILTRATION RATE (test code=GFR) mL/min >=60 CREATININE (test code=CREAT) mg/dL 0.7-1.3 BUN/CREATININE RATIO (test code=BUN/CREA) 10-20 CALCIUM (test code=CA) mg/dL 8.5-10.1 CBC W/AUTO [id number] 07:09:00* Test Item Value Reference Range Comments WHITE BLOOD CELL (test code=WBC) 9.0 K/mm3 4.5-12.5 RED BLOOD CELL (test code=RBC) 3.22 mill/mm3 4.0-5.8 HEMOGLOBIN (test code=HGB) 9.7 gram/dL 13.0-17.5 HEMATOCRIT (test code=HCT) 29.0 % 42.0-52.0 MEAN CELL VOLUME (test code=MCV) 90.1 fL 80-98 MEAN CELL HGB (test code=MCH) 30.1 picogram 27.0-33.0 MEAN CELL HGB CONCETRATION (test code=MCHC) 33.4 gram/dL 33.0-36.0 RED CELL DISTRIBUTION WIDTH (test code=RDW) 12.3 % 11.6-16.2 RED CELL DISTRIBUTION WIDTH SD (test code=RDW-SD) 40.1 fL 37.0-51.0 PLATELET COUNT (test code=PLT) 134 K/mm3 150-450 MEAN PLATELET VOLUME (test code=MPV) 9.4 fL 6.7-11.0 NEUTROPHIL % (test code=NT%) 28.4 % 39.0-69.0 IMMATURE GRANULOCYTE % (test code=IG%) 0.7 % 0.0-5.0 LYMPHOCYTE % (test code=LY%) 57.6 % 25.0-55.0 MONOCYTE % (test code=MO%) 7.4 % 0.0-10.0 EOSINOPHIL % (test code=EO%) 5.5 % 0.0-5.0 BASOPHIL % (test code=BA%) 0.4 % 0.0-1.0 NUCLEATED RBC % (test code=NRBC%) 0.0 % 0-0 NEUTROPHIL # (test code=NT#) 2.56 K/mm3 1.8-7.7 IMMATURE GRANULOCYTE # (test code=IG#) 0.06 x10 3/uL 0-0.03 LYMPHOCYTE # (test code=LY#) 5.21 K/mm3 1.0-5.0 MONOCYTE # (test code=MO#) 0.67 K/mm3 0-0.8 EOSINOPHIL # (test code=EO#) 0.50 K/mm3 0.0-0.5 BASOPHIL # (test code=BA#) 0.04 K/mm3 0.0-0.2 NUCLEATED RBC # (test code=NRBC#) 0.00 K/mm3 0.0-0.1 MANUAL DIFF REQUIRED (test code=MDIFF) NO [id number] 23:26:00* Test Item Value Reference Range Comments GLUBED (test code=GLUBED) 123 mg/dL 74-106 Performed by certified corking machine operator at [facility] [id number] 17:16:00* Test Item Value Reference Range Comments GLUBED (test code=GLUBED) 196 mg/dL 74-106 Performed by certified corking machine operator at [facility] [id number] 13:26:00* Test Item Value Reference Range Comments GLUBED (test code=GLUBED) 138 mg/dL 74-106 Performed by certified corking machine operator at [facility] [id number] 08:29:00* Test Item Value Reference Range Comments VANCOMYCIN (test code=VANCO) 14.9 UG/ML 5.0-45.0 BASIC METABOLIC [id number] 08:17:00* Test Item Value Reference Range Comments SODIUM (test code=NA) 141 mmol/L 136-145 POTASSIUM (test code=K) 5.0 mmol/L 3.5-5.1 CHLORIDE (test code=CL) 106.0 mmol/L 98-107 CARBON DIOXIDE (test code=CO2) 27.0 mmol/L 21-32 ANION GAP (test code=GAP) 13.0 10-20 GLUCOSE (test code=GLU) 73 mg/dL 74-106 BLOOD UREA NITROGEN (test code=BUN) 55 mg/dL 7-18 GLOMERULAR FILTRATION RATE (test code=GFR) 13 mL/min >=60 Estimated GFR by using Modified MDRD formula.Chronic kidney disease is defined as either kidney damageor GFR <60 mL/min/1.73 m2 for >3 months. CREATININE (test code=CREAT) 4.80 mg/dL 0.7-1.3 BUN/CREATININE RATIO (test code=BUN/CREA) 11.4 10-20 CALCIUM (test code=CA) 7.9 mg/dL 8.5-10.1 BASIC METABOLIC [id number] 08:08:00* Test Item Value Reference Range Comments SODIUM (test code=NA) 141 mmol/L 136-145 POTASSIUM (test code=K) 5.0 mmol/L 3.5-5.1 CHLORIDE (test code=CL) 106.0 mmol/L 98-107 CARBON DIOXIDE (test code=CO2) mmol/L 21-32 ANION GAP (test code=GAP) 10-20 GLUCOSE (test code=GLU) mg/dL 74-106 BLOOD UREA NITROGEN (test code=BUN) mg/dL 7-18 GLOMERULAR FILTRATION RATE (test code=GFR) mL/min >=60 CREATININE (test code=CREAT) mg/dL 0.7-1.3 BUN/CREATININE RATIO (test code=BUN/CREA) 10-20 CALCIUM (test code=CA) mg/dL 8.5-10.1 CBC W/AUTO [id number] 07:44:00* Test Item Value Reference Range Comments WHITE BLOOD CELL (test code=WBC) 10.0 K/mm3 4.5-12.5 RED BLOOD CELL (test code=RBC) 3.01 mill/mm3 4.0-5.8 HEMOGLOBIN (test code=HGB) 9.2 gram/dL 13.0-17.5 HEMATOCRIT (test code=HCT) 26.9 % 42.0-52.0 MEAN CELL VOLUME (test code=MCV) 89.4 fL 80-98 MEAN CELL HGB (test code=MCH) 30.6 picogram 27.0-33.0 MEAN CELL HGB CONCETRATION (test code=MCHC) 34.2 gram/dL 33.0-36.0 RED CELL DISTRIBUTION WIDTH (test code=RDW) 12.4 % 11.6-16.2 RED CELL DISTRIBUTION WIDTH SD (test code=RDW-SD) 40.2 fL 37.0-51.0 PLATELET COUNT (test code=PLT) 134 K/mm3 150-450 MEAN PLATELET VOLUME (test code=MPV) 9.0 fL 6.7-11.0 NEUTROPHIL % (test code=NT%) 34.8 % 39.0-69.0 IMMATURE GRANULOCYTE % (test code=IG%) 0.4 % 0.0-5.0 LYMPHOCYTE % (test code=LY%) 51.8 % 25.0-55.0 MONOCYTE % (test code=MO%) 7.1 % 0.0-10.0 EOSINOPHIL % (test code=EO%) 5.4 % 0.0-5.0 BASOPHIL % (test code=BA%) 0.5 % 0.0-1.0 NUCLEATED RBC % (test code=NRBC%) 0.0 % 0-0 NEUTROPHIL # (test code=NT#) 3.46 K/mm3 1.8-7.7 IMMATURE GRANULOCYTE # (test code=IG#) 0.04 x10 3/uL 0-0.03 LYMPHOCYTE # (test code=LY#) 5.16 K/mm3 1.0-5.0 MONOCYTE # (test code=MO#) 0.71 K/mm3 0-0.8 EOSINOPHIL # (test code=EO#) 0.54 K/mm3 0.0-0.5 BASOPHIL # (test code=BA#) 0.05 K/mm3 0.0-0.2 NUCLEATED RBC # (test code=NRBC#) 0.00 K/mm3 0.0-0.1 MANUAL DIFF REQUIRED (test code=MDIFF) NO [id number] 20:57:00* Test Item Value Reference Range Comments GLUBED (test code=GLUBED) 137 mg/dL 74-106 Performed by certified corking machine operator at [facility] EXTREMITY,[id number] 17:05:00 RUN DATE: 09/10/18 [facility] PAGE 1 RUN TIME: 1705 Specimen Inqui ry RUN USER: INTERFACE PATIENT: SYEDA POWERS ACCT #: [id number] LOC: JOSELYN U #: [id number] AGE/SX: 47/M ROOM: [facility] RE08/31/18REG DR: Juvenal Forde MD : 70 BED: A DIS: STATUS: ADM IN TLOC: SPEC #: [id number] RECD: 09/04/18 STATUS: MEHRAN REQ #: [id number] LUNA: 09/04/18- SUBM DR: Ascencion Funes DPM ENTERED: 09/04/18-1152 SP TYPE: EXT. AMPU OTHR DR: Shahzad Hall MD,Jose fletcher,Tye Peres MD, MD, Si ddiquElena ryan MDiTavon MD, Faiza MDORDERED: GROSS COPIES TO: Ascencion Funes DPM [address] [place] [address] Shahzad Hall MD [address] [place] [address] Jose Quintanilla MD [address] [facility] [address] [place] [address] Laith White MD [address] [place] [address] [place] [address] [facility] [address] [place] [address] Elena Belcher MD [address] [facility] [address] [address] [place] [address] [facility] [address] [place], [place] [id number] CONTINUED ON NEXT PAGE RUN DATE: 09/10/18 [facility] PAGE 2 RUN TIME: 1705 Specimen Inquiry R UN USER: INTERFACE --- ---------SPEC #: [id number] PATIENT: PRIYASYEDA HORVATH #[id number] (Continued) COPIES TO: (Continued) Alvina Pike MD [address] [place] [address] MARKERS: ABNORMAL TISSUE, INTRADEPARTMENTAL CONSULT PROCEDURES: GROSS (09/10/18-114) TISSUES: METATARSAL, NOS - TRANS RIGHT CLINICAL HISTORY COLLECTION SHAWNA E: 09/04/2018 RIGHT FOOT OSTEOMYELITIS COMMENT The area of f ibrosis and new bone formation at one of the metatarsal margins does not have a ny associated inflammation or bony necrosis and is compatible with a healing are a. Clinical correlation is recommended. Intradepartmental consultation: RRB FINAL DIAGNOSIS Right foot, transmetatarsal amputation: ULCER ATION THIRD TOE WITH ASSOCIATED ACUTE OSTEOMYELITIS SOME FOCAL FIBROSIS A ND NEW BONE FORMATION SEEN AT ONE METATARSAL MARGIN (SEE CO MMENT) DMW/sm A [id number], [id number] MACROSCOPIC The specimen is received in formalin, labeled with the patient's name, identified as "right transmetatarsal bone", and consists of an 8.5 X 6.0 X 2.7 cm transmetatarsal amputation specimen with second, third, fourth and fifth digit present. The nail of the third toe is brown and hypertrophic. There is an ulcer beneath th e nail measuring 2.5 cm. The nail of the fourth toe is grewal-red brown. There is a 0.5 cm discoloration beneath the nail. The second and fifth toes are unr emarkable. The surgical margin is grossly viable and free of inflammation. A lso received in the same container are five portions of CONTINUED ON NEXT PAGE RUN DATE: 09/10/18 [facility] PAGE 3 RUN TIME: 1705 Specimen Inquiry RUN USER: INTERFACE SPEC #: [id number] PATIENT: SYEDA POWERS #[id number] (Continued) MACROSCOPIC (Continued) bone ranging from 2.0 to 2.5 cm. No gross abnormality is noted. Transverse Abdominal Muscle Nurse of skin an soft tissue at margin is submitted as (1A). Additional sections will be submitted after decalcification. Section Code: 1A- skin and soft tissue of margin, 1B- sales account representative of third digit, 1C- sales account representative of fourth digit and 1D- sales account representative of bone at margin after decalcification, 1E and 1F- bony eric ins of the separate metatarsal bones after decalcification. STEPHEN S PERFORMED AT [facility] [address] [place] [address] (p)[phone] of the [address] ains, including any controls performed, stain appropriately. MICROSCOPIC PERFORMED AT [facility] [address] [place] [address] (p)[phone] PERFORMING SITE Dalia gnosis performed at: [facility] [address] [place] [address] Signed SIGN ATURE ON FILE Eunice Gonzalez MD 09/10/18 1705 -------- ---- END OF REPORT GLUBED 2018-09-10 16:04:00* Test Item Value Reference Range Comments GLUBED (test code=GLUBED) 84 mg/dL 74-106 Performed by certified corking machine operator at [facility] [id number] 11:41:00* Test Item Value Reference Range Comments GLUBED (test code=GLUBED) 168 mg/dL 74-106 Performed by certified corking machine operator at [facility] [id number] 07:36:00* Test Item Value Reference Range Comments GLUBED (test code=GLUBED) 179 mg/dL 74-106 Performed by certified corking machine operator at [facility] BASIC METABOLIC [id number] 06:00:00* Test Item Value Reference Range Comments SODIUM (test code=NA) 141 mmol/L 136-145 POTASSIUM (test code=K) 4.8 mmol/L 3.5-5.1 CHLORIDE (test code=CL) 104.0 mmol/L 98-107 CARBON DIOXIDE (test code=CO2) 31.0 mmol/L 21-32 ANION GAP (test code=GAP) 10.8 10-20 GLUCOSE (test code=GLU) 181 mg/dL 74-106 BLOOD UREA NITROGEN (test code=BUN) 38 mg/dL 7-18 GLOMERULAR FILTRATION RATE (test code=GFR) 16 mL/min >=60 Estimated GFR by using Modified MDRD formula.Chronic kidney disease is defined as either kidney damageor GFR <60 mL/min/1.73 m2 for >3 months. CREATININE (test code=CREAT) 4.10 mg/dL 0.7-1.3 BUN/CREATININE RATIO (test code=BUN/CREA) 9.3 10-20 CALCIUM (test code=CA) 7.5 mg/dL 8.5-10.1 BASIC METABOLIC [id number] 05:50:00* Test Item Value Reference Range Comments SODIUM (test code=NA) 141 mmol/L 136-145 POTASSIUM (test code=K) 4.8 mmol/L 3.5-5.1 CHLORIDE (test code=CL) 104.0 mmol/L 98-107 CARBON DIOXIDE (test code=CO2) mmol/L 21-32 ANION GAP (test code=GAP) 10-20 GLUCOSE (test code=GLU) mg/dL 74-106 BLOOD UREA NITROGEN (test code=BUN) mg/dL 7-18 GLOMERULAR FILTRATION RATE (test code=GFR) mL/min >=60 CREATININE (test code=CREAT) mg/dL 0.7-1.3 BUN/CREATININE RATIO (test code=BUN/CREA) 10-20 CALCIUM (test code=CA) mg/dL 8.5-10.1 CBC W/MANUAL [id number] 05:43:00* Test Item Value Reference Range Comments WHITE BLOOD CELL (test code=WBC) 10.1 K/mm3 4.5-12.5 RED BLOOD CELL (test code=RBC) 3.22 mill/mm3 4.0-5.8 HEMOGLOBIN (test code=HGB) 9.8 gram/dL 13.0-17.5 HEMATOCRIT (test code=HCT) 29.8 % 42.0-52.0 MEAN CELL VOLUME (test code=MCV) 92.5 fL 80-98 MEAN CELL HGB (test code=MCH) 30.4 picogram 27.0-33.0 MEAN CELL HGB CONCETRATION (test code=MCHC) 32.9 gram/dL 33.0-36.0 RED CELL DISTRIBUTION WIDTH (test code=RDW) 12.5 % 11.6-16.2 RED CELL DISTRIBUTION WIDTH SD (test code=RDW-SD) 41.9 fL 37.0-51.0 PLATELET COUNT (test code=PLT) 144 K/mm3 150-450 MEAN PLATELET VOLUME (test code=MPV) 9.5 fL 6.7-11.0 IMMATURE GRANULOCYTE % (test code=IG%) 0.5 % 0.0-5.0 NUCLEATED RBC % (test code=NRBC%) 0.0 % 0-0 NEUTROPHIL # (test code=NT#) 3.38 K/mm3 1.8-7.7 IMMATURE GRANULOCYTE # (test code=IG#) 0.05 x10 3/uL 0-0.03 LYMPHOCYTE # (test code=LY#) 5.35 K/mm3 1.0-5.0 MONOCYTE # (test code=MO#) 0.68 K/mm3 0-0.8 EOSINOPHIL # (test code=EO#) 0.55 K/mm3 0.0-0.5 BASOPHIL # (test code=BA#) 0.06 K/mm3 0.0-0.2 NUCLEATED RBC # (test code=NRBC#) 0.00 K/mm3 0.0-0.1 MANUAL DIFF REQUIRED (test code=MDIFF) YES STAIN ACCEPTABILITY (test code=STN ACCEPTABLE) STAIN ACCEPTABLE TOTAL CELLS COUNTED (test code=TCC) 114 #CELLS SEGMENTED NEUTROPHILS (test code=SEG) 50.9 % 39-69 BAND NEUTROPHIL (test code=BAND) 0 % 0-10 LYMPHOCYTE (test code=LYMPH) 32.5 % 25-55 REACTIVE LYMPH (test code=RELYMPH) 0 % MONOCYTE (test code=MON) 6.1 % 0-10 EOSINOPHIL (test code=EOS) 9.6 % 0.0-5.0 BASOPHIL (test code=BASO) 0.9 % 0-1.0 METAMYELOCYTE (test code=META) 0 % 0-0 MYELOCYTE (test code=MYELO) 0 % 0.0-0.0 PROMYELOCYTE (test code=PROM) 0 % 0-0 PLATELET ESTIMATE (test code=PLTEST) ADEQUATE PLATELET MORPHOLOGY (test code=PLTMORPH) NORMAL IMMATURE FORMS (test code=IMMAT) 0 % CBC W/MANUAL [id number] 05:26:00* Test Item Value Reference Range Comments WHITE BLOOD CELL (test code=WBC) 10.1 K/mm3 4.5-12.5 RED BLOOD CELL (test code=RBC) 3.22 mill/mm3 4.0-5.8 HEMOGLOBIN (test code=HGB) 9.8 gram/dL 13.0-17.5 HEMATOCRIT (test code=HCT) 29.8 % 42.0-52.0 MEAN CELL VOLUME (test code=MCV) 92.5 fL 80-98 MEAN CELL HGB (test code=MCH) 30.4 picogram 27.0-33.0 MEAN CELL HGB CONCETRATION (test code=MCHC) 32.9 gram/dL 33.0-36.0 RED CELL DISTRIBUTION WIDTH (test code=RDW) 12.5 % 11.6-16.2 RED CELL DISTRIBUTION WIDTH SD (test code=RDW-SD) 41.9 fL 37.0-51.0 PLATELET COUNT (test code=PLT) 144 K/mm3 150-450 MEAN PLATELET VOLUME (test code=MPV) 9.5 fL 6.7-11.0 IMMATURE GRANULOCYTE % (test code=IG%) 0.5 % 0.0-5.0 NUCLEATED RBC % (test code=NRBC%) 0.0 % 0-0 NEUTROPHIL # (test code=NT#) 3.38 K/mm3 1.8-7.7 IMMATURE GRANULOCYTE # (test code=IG#) 0.05 x10 3/uL 0-0.03 LYMPHOCYTE # (test code=LY#) 5.35 K/mm3 1.0-5.0 MONOCYTE # (test code=MO#) 0.68 K/mm3 0-0.8 EOSINOPHIL # (test code=EO#) 0.55 K/mm3 0.0-0.5 BASOPHIL # (test code=BA#) 0.06 K/mm3 0.0-0.2 NUCLEATED RBC # (test code=NRBC#) 0.00 K/mm3 0.0-0.1 MANUAL DIFF REQUIRED (test code=MDIFF) YES STAIN ACCEPTABILITY (test code=STN ACCEPTABLE) TOTAL CELLS COUNTED (test code=TCC) #CELLS SEGMENTED NEUTROPHILS (test code=SEG) % 39-69 LYMPHOCYTE (test code=LYMPH) % 25-55 MONOCYTE (test code=MON) % 0-10 EOSINOPHIL (test code=EOS) % 0.0-5.0 CABOT RINGS (test code=CAB) MORPHOLOGY COMMENT (test code=MOC) PLATELET ESTIMATE (test code=PLTEST) PLATELET MORPHOLOGY (test code=PLTMORPH) CBC W/MANUAL [id number] 05:26:00* Test Item Value Reference Range Comments WHITE BLOOD CELL (test code=WBC) 10.1 K/mm3 4.5-12.5 RED BLOOD CELL (test code=RBC) 3.22 mill/mm3 4.0-5.8 HEMOGLOBIN (test code=HGB) 9.8 gram/dL 13.0-17.5 HEMATOCRIT (test code=HCT) 29.8 % 42.0-52.0 MEAN CELL VOLUME (test code=MCV) 92.5 fL 80-98 MEAN CELL HGB (test code=MCH) 30.4 picogram 27.0-33.0 MEAN CELL HGB CONCETRATION (test code=MCHC) 32.9 gram/dL 33.0-36.0 RED CELL DISTRIBUTION WIDTH (test code=RDW) 12.5 % 11.6-16.2 RED CELL DISTRIBUTION WIDTH SD (test code=RDW-SD) 41.9 fL 37.0-51.0 PLATELET COUNT (test code=PLT) 144 K/mm3 150-450 MEAN PLATELET VOLUME (test code=MPV) 9.5 fL 6.7-11.0 IMMATURE GRANULOCYTE % (test code=IG%) 0.5 % 0.0-5.0 NUCLEATED RBC % (test code=NRBC%) 0.0 % 0-0 NEUTROPHIL # (test code=NT#) 3.38 K/mm3 1.8-7.7 IMMATURE GRANULOCYTE # (test code=IG#) 0.05 x10 3/uL 0-0.03 LYMPHOCYTE # (test code=LY#) 5.35 K/mm3 1.0-5.0 MONOCYTE # (test code=MO#) 0.68 K/mm3 0-0.8 EOSINOPHIL # (test code=EO#) 0.55 K/mm3 0.0-0.5 BASOPHIL # (test code=BA#) 0.06 K/mm3 0.0-0.2 NUCLEATED RBC # (test code=NRBC#) 0.00 K/mm3 0.0-0.1 MANUAL DIFF REQUIRED (test code=MDIFF) YES STAIN ACCEPTABILITY (test code=STN ACCEPTABLE) TOTAL CELLS COUNTED (test code=TCC) #CELLS SEGMENTED NEUTROPHILS (test code=SEG) % 39-69 LYMPHOCYTE (test code=LYMPH) % 25-55 MONOCYTE (test code=MON) % 0-10 EOSINOPHIL (test code=EOS) % 0.0-5.0 CABOT RINGS (test code=CAB) MORPHOLOGY COMMENT (test code=MOC) PLATELET ESTIMATE (test code=PLTEST) PLATELET MORPHOLOGY (test code=PLTMORPH) CBC W/MANUAL [id number] 05:26:00* Test Item Value Reference Range Comments WHITE BLOOD CELL (test code=WBC) 10.1 K/mm3 4.5-12.5 RED BLOOD CELL (test code=RBC) 3.22 mill/mm3 4.0-5.8 HEMOGLOBIN (test code=HGB) 9.8 gram/dL 13.0-17.5 HEMATOCRIT (test code=HCT) 29.8 % 42.0-52.0 MEAN CELL VOLUME (test code=MCV) 92.5 fL 80-98 MEAN CELL HGB (test code=MCH) 30.4 picogram 27.0-33.0 MEAN CELL HGB CONCETRATION (test code=MCHC) 32.9 gram/dL 33.0-36.0 RED CELL DISTRIBUTION WIDTH (test code=RDW) 12.5 % 11.6-16.2 RED CELL DISTRIBUTION WIDTH SD (test code=RDW-SD) 41.9 fL 37.0-51.0 PLATELET COUNT (test code=PLT) 144 K/mm3 150-450 MEAN PLATELET VOLUME (test code=MPV) 9.5 fL 6.7-11.0 IMMATURE GRANULOCYTE % (test code=IG%) 0.5 % 0.0-5.0 NUCLEATED RBC % (test code=NRBC%) 0.0 % 0-0 NEUTROPHIL # (test code=NT#) 3.38 K/mm3 1.8-7.7 IMMATURE GRANULOCYTE # (test code=IG#) 0.05 x10 3/uL 0-0.03 LYMPHOCYTE # (test code=LY#) 5.35 K/mm3 1.0-5.0 MONOCYTE # (test code=MO#) 0.68 K/mm3 0-0.8 EOSINOPHIL # (test code=EO#) 0.55 K/mm3 0.0-0.5 BASOPHIL # (test code=BA#) 0.06 K/mm3 0.0-0.2 NUCLEATED RBC # (test code=NRBC#) 0.00 K/mm3 0.0-0.1 MANUAL DIFF REQUIRED (test code=MDIFF) YES STAIN ACCEPTABILITY (test code=STN ACCEPTABLE) TOTAL CELLS COUNTED (test code=TCC) #CELLS SEGMENTED NEUTROPHILS (test code=SEG) % 39-69 LYMPHOCYTE (test code=LYMPH) % 25-55 MONOCYTE (test code=MON) % 0-10 EOSINOPHIL (test code=EOS) % 0.0-5.0 MORPHOLOGY COMMENT (test code=MOC) PLATELET ESTIMATE (test code=PLTEST) PLATELET MORPHOLOGY (test code=PLTMORPH) CBC W/MANUAL [id number] 05:26:00* Test Item Value Reference Range Comments WHITE BLOOD CELL (test code=WBC) 10.1 K/mm3 4.5-12.5 RED BLOOD CELL (test code=RBC) 3.22 mill/mm3 4.0-5.8 HEMOGLOBIN (test code=HGB) 9.8 gram/dL 13.0-17.5 HEMATOCRIT (test code=HCT) 29.8 % 42.0-52.0 MEAN CELL VOLUME (test code=MCV) 92.5 fL 80-98 MEAN CELL HGB (test code=MCH) 30.4 picogram 27.0-33.0 MEAN CELL HGB CONCETRATION (test code=MCHC) 32.9 gram/dL 33.0-36.0 RED CELL DISTRIBUTION WIDTH (test code=RDW) 12.5 % 11.6-16.2 RED CELL DISTRIBUTION WIDTH SD (test code=RDW-SD) 41.9 fL 37.0-51.0 PLATELET COUNT (test code=PLT) 144 K/mm3 150-450 MEAN PLATELET VOLUME (test code=MPV) 9.5 fL 6.7-11.0 IMMATURE GRANULOCYTE % (test code=IG%) 0.5 % 0.0-5.0 NUCLEATED RBC % (test code=NRBC%) 0.0 % 0-0 NEUTROPHIL # (test code=NT#) 3.38 K/mm3 1.8-7.7 IMMATURE GRANULOCYTE # (test code=IG#) 0.05 x10 3/uL 0-0.03 LYMPHOCYTE # (test code=LY#) 5.35 K/mm3 1.0-5.0 MONOCYTE # (test code=MO#) 0.68 K/mm3 0-0.8 EOSINOPHIL # (test code=EO#) 0.55 K/mm3 0.0-0.5 BASOPHIL # (test code=BA#) 0.06 K/mm3 0.0-0.2 NUCLEATED RBC # (test code=NRBC#) 0.00 K/mm3 0.0-0.1 MANUAL DIFF REQUIRED (test code=MDIFF) YES STAIN ACCEPTABILITY (test code=STN ACCEPTABLE) TOTAL CELLS COUNTED (test code=TCC) #CELLS SEGMENTED NEUTROPHILS (test code=SEG) % 39-69 LYMPHOCYTE (test code=LYMPH) % 25-55 MONOCYTE (test code=MON) % 0-10 MORPHOLOGY COMMENT (test code=MOC) PLATELET ESTIMATE (test code=PLTEST) PLATELET MORPHOLOGY (test code=PLTMORPH) CBC W/MANUAL [id number] 05:26:00* Test Item Value Reference Range Comments WHITE BLOOD CELL (test code=WBC) 10.1 K/mm3 4.5-12.5 RED BLOOD CELL (test code=RBC) 3.22 mill/mm3 4.0-5.8 HEMOGLOBIN (test code=HGB) 9.8 gram/dL 13.0-17.5 HEMATOCRIT (test code=HCT) 29.8 % 42.0-52.0 MEAN CELL VOLUME (test code=MCV) 92.5 fL 80-98 MEAN CELL HGB (test code=MCH) 30.4 picogram 27.0-33.0 MEAN CELL HGB CONCETRATION (test code=MCHC) 32.9 gram/dL 33.0-36.0 RED CELL DISTRIBUTION WIDTH (test code=RDW) 12.5 % 11.6-16.2 RED CELL DISTRIBUTION WIDTH SD (test code=RDW-SD) 41.9 fL 37.0-51.0 PLATELET COUNT (test code=PLT) 144 K/mm3 150-450 MEAN PLATELET VOLUME (test code=MPV) 9.5 fL 6.7-11.0 IMMATURE GRANULOCYTE % (test code=IG%) 0.5 % 0.0-5.0 NUCLEATED RBC % (test code=NRBC%) 0.0 % 0-0 NEUTROPHIL # (test code=NT#) 3.38 K/mm3 1.8-7.7 IMMATURE GRANULOCYTE # (test code=IG#) 0.05 x10 3/uL 0-0.03 LYMPHOCYTE # (test code=LY#) 5.35 K/mm3 1.0-5.0 MONOCYTE # (test code=MO#) 0.68 K/mm3 0-0.8 EOSINOPHIL # (test code=EO#) 0.55 K/mm3 0.0-0.5 BASOPHIL # (test code=BA#) 0.06 K/mm3 0.0-0.2 NUCLEATED RBC # (test code=NRBC#) 0.00 K/mm3 0.0-0.1 MANUAL DIFF REQUIRED (test code=MDIFF) YES STAIN ACCEPTABILITY (test code=STN ACCEPTABLE) TOTAL CELLS COUNTED (test code=TCC) #CELLS SEGMENTED NEUTROPHILS (test code=SEG) % 39-69 LYMPHOCYTE (test code=LYMPH) % 25-55 MONOCYTE (test code=MON) % 0-10 EOSINOPHIL (test code=EOS) % 0.0-5.0 CABOT RINGS (test code=CAB) MORPHOLOGY COMMENT (test code=MOC) PLATELET ESTIMATE (test code=PLTEST) PLATELET MORPHOLOGY (test code=PLTMORPH) [id number] 21:08:00* Test Item Value Reference Range Comments GLUBED (test code=GLUBED) 150 mg/dL 74-106 Performed by certified corking machine operator at [facility] [id number] 16:20:00* Test Item Value Reference Range Comments GLUBED (test code=GLUBED) 199 mg/dL 74-106 Performed by certified corking machine operator at [facility] [id number] 12:18:00* Test Item Value Reference Range Comments GLUBED (test code=GLUBED) 112 mg/dL 74-106 Performed by certified corking machine operator at [facility] BASIC METABOLIC [id number] 05:38:00* Test Item Value Reference Range Comments SODIUM (test code=NA) 142 mmol/L 136-145 POTASSIUM (test code=K) 4.3 mmol/L 3.5-5.1 CHLORIDE (test code=CL) 106.0 mmol/L 98-107 CARBON DIOXIDE (test code=CO2) 28.0 mmol/L 21-32 ANION GAP (test code=GAP) 12.3 10-20 GLUCOSE (test code=GLU) 205 mg/dL 74-106 BLOOD UREA NITROGEN (test code=BUN) 55 mg/dL 7-18 GLOMERULAR FILTRATION RATE (test code=GFR) 11 mL/min >=60 Estimated GFR by using Modified MDRD formula.Chronic kidney disease is defined as either kidney damageor GFR <60 mL/min/1.73 m2 for >3 months. CREATININE (test code=CREAT) 5.60 mg/dL 0.7-1.3 BUN/CREATININE RATIO (test code=BUN/CREA) 9.8 10-20 CALCIUM (test code=CA) 7.8 mg/dL 8.5-10.1 BASIC METABOLIC [id number] 05:29:00* Test Item Value Reference Range Comments SODIUM (test code=NA) 142 mmol/L 136-145 POTASSIUM (test code=K) 4.3 mmol/L 3.5-5.1 CHLORIDE (test code=CL) 106.0 mmol/L 98-107 CARBON DIOXIDE (test code=CO2) mmol/L 21-32 ANION GAP (test code=GAP) 10-20 GLUCOSE (test code=GLU) mg/dL 74-106 BLOOD UREA NITROGEN (test code=BUN) mg/dL 7-18 GLOMERULAR FILTRATION RATE (test code=GFR) mL/min >=60 CREATININE (test code=CREAT) mg/dL 0.7-1.3 BUN/CREATININE RATIO (test code=BUN/CREA) 10-20 CALCIUM (test code=CA) mg/dL 8.5-10.1 CBC W/O [id number] 05:12:00* Test Item Value Reference Range Comments WHITE BLOOD CELL (test code=WBC) 9.2 K/mm3 4.5-12.5 RED BLOOD CELL (test code=RBC) 3.06 mill/mm3 4.0-5.8 HEMOGLOBIN (test code=HGB) 9.5 gram/dL 13.0-17.5 HEMATOCRIT (test code=HCT) 28.2 % 42.0-52.0 MEAN CELL VOLUME (test code=MCV) 92.2 fL 80-98 MEAN CELL HGB (test code=MCH) 31.0 picogram 27.0-33.0 MEAN CELL HGB CONCETRATION (test code=MCHC) 33.7 gram/dL 33.0-36.0 RED CELL DISTRIBUTION WIDTH (test code=RDW) 12.6 % 11.6-16.2 PLATELET COUNT (test code=PLT) 155 K/mm3 150-450 MEAN PLATELET VOLUME (test code=MPV) 9.6 fL 6.7-11.0 [id number] 20:55:00* Test Item Value Reference Range Comments GLUBED (test code=GLUBED) 90 mg/dL 74-106 [facility]king [facility] [id number] 17:33:00* Test Item Value Reference Range Comments GLUBED (test code=GLUBED) 97 mg/dL 74-106 Performed by certified corking machine operator at [facility] [id number] 12:50:00* Test Item Value Reference Range Comments GLUBED (test code=GLUBED) 173 mg/dL 74-106 Performed by certified corking machine operator at [facility] [id number] 08:20:00* Test Item Value Reference Range Comments GLUBED (test code=GLUBED) 203 mg/dL 74-106 Performed by certified corking machine operator at [facility] BASIC METABOLIC [id number] 06:21:00* Test Item Value Reference Range Comments SODIUM (test code=NA) 140 mmol/L 136-145 POTASSIUM (test code=K) 4.3 mmol/L 3.5-5.1 CHLORIDE (test code=CL) 102.0 mmol/L 98-107 CARBON DIOXIDE (test code=CO2) 29.0 mmol/L 21-32 ANION GAP (test code=GAP) 13.3 10-20 GLUCOSE (test code=GLU) 194 mg/dL 74-106 BLOOD UREA NITROGEN (test code=BUN) 47 mg/dL 7-18 RESULT VERIFIED BY REPEAT ANALYSIS GLOMERULAR FILTRATION RATE (test code=GFR) 11 mL/min >=60 Estimated GFR by using Modified MDRD formula.Chronic kidney disease is defined as either kidney damageor GFR <60 mL/min/1.73 m2 for >3 months. CREATININE (test code=CREAT) 5.40 mg/dL 0.7-1.3 BUN/CREATININE RATIO (test code=BUN/CREA) 8.7 10-20 CALCIUM (test code=CA) 7.4 mg/dL 8.5-10.1 BASIC METABOLIC [id number] 05:27:00* Test Item Value Reference Range Comments SODIUM (test code=NA) 140 mmol/L 136-145 POTASSIUM (test code=K) 4.3 mmol/L 3.5-5.1 CHLORIDE (test code=CL) 102.0 mmol/L 98-107 CARBON DIOXIDE (test code=CO2) mmol/L 21-32 ANION GAP (test code=GAP) 10-20 GLUCOSE (test code=GLU) mg/dL 74-106 BLOOD UREA NITROGEN (test code=BUN) mg/dL 7-18 GLOMERULAR FILTRATION RATE (test code=GFR) mL/min >=60 CREATININE (test code=CREAT) mg/dL 0.7-1.3 BUN/CREATININE RATIO (test code=BUN/CREA) 10-20 CALCIUM (test code=CA) mg/dL 8.5-10.1 [id number] 21:06:00* Test Item Value Reference Range Comments GLUBED (test code=GLUBED) 101 mg/dL 74-106 Per[facility] certified corking machine operator [facility] [id number] 18:06:00* Test Item Value Reference Range Comments GLUBED (test code=GLUBED) 119 mg/dL 74-106 Performed by certified corking machine operator at [facility] [id number] 12:26:00* Test Item Value Reference Range Comments GLUBED (test code=GLUBED) 113 mg/dL 74-106 Performed by certified corking machine operator at [facility] [id number] 08:36:00* Test Item Value Reference Range Comments GLUBED (test code=GLUBED) 203 mg/dL 74-106 Performed by certified corking machine operator at [facility] BASIC METABOLIC [id number] 06:47:00* Test Item Value Reference Range Comments SODIUM (test code=NA) 139 mmol/L 136-145 POTASSIUM (test code=K) 5.3 mmol/L 3.5-5.1 CHLORIDE (test code=CL) 104.0 mmol/L 98-107 CARBON DIOXIDE (test code=CO2) 26.0 mmol/L 21-32 ANION GAP (test code=GAP) 14.3 10-20 GLUCOSE (test code=GLU) 205 mg/dL 74-106 BLOOD UREA NITROGEN (test code=BUN) 73 mg/dL 7-18 GLOMERULAR FILTRATION RATE (test code=GFR) 9 mL/min >=60 Estimated GFR by using Modified MDRD formula.Chronic kidney disease is defined as either kidney damageor GFR <60 mL/min/1.73 m2 for >3 months. CREATININE (test code=CREAT) 6.90 mg/dL 0.7-1.3 BUN/CREATININE RATIO (test code=BUN/CREA) 10.5 10-20 CALCIUM (test code=CA) 8.4 mg/dL 8.5-10.1 CBC W/MANUAL [id number] 06:44:00* Test Item Value Reference Range Comments WHITE BLOOD CELL (test code=WBC) 10.9 K/mm3 4.5-12.5 RED BLOOD CELL (test code=RBC) 3.30 mill/mm3 4.0-5.8 HEMOGLOBIN (test code=HGB) 10.0 gram/dL 13.0-17.5 HEMATOCRIT (test code=HCT) 31.5 % 42.0-52.0 MEAN CELL VOLUME (test code=MCV) 95.5 fL 80-98 MEAN CELL HGB (test code=MCH) 30.3 picogram 27.0-33.0 MEAN CELL HGB CONCETRATION (test code=MCHC) 31.7 gram/dL 33.0-36.0 RED CELL DISTRIBUTION WIDTH (test code=RDW) 12.5 % 11.6-16.2 RED CELL DISTRIBUTION WIDTH SD (test code=RDW-SD) 43.8 fL 37.0-51.0 PLATELET COUNT (test code=PLT) 158 K/mm3 150-450 MEAN PLATELET VOLUME (test code=MPV) 9.8 fL 6.7-11.0 IMMATURE GRANULOCYTE % (test code=IG%) 0.3 % 0.0-5.0 NUCLEATED RBC % (test code=NRBC%) 0.0 % 0-0 NEUTROPHIL # (test code=NT#) 3.50 K/mm3 1.8-7.7 IMMATURE GRANULOCYTE # (test code=IG#) 0.03 x10 3/uL 0-0.03 LYMPHOCYTE # (test code=LY#) 5.90 K/mm3 1.0-5.0 MONOCYTE # (test code=MO#) 0.84 K/mm3 0-0.8 EOSINOPHIL # (test code=EO#) 0.60 K/mm3 0.0-0.5 BASOPHIL # (test code=BA#) 0.07 K/mm3 0.0-0.2 NUCLEATED RBC # (test code=NRBC#) 0.00 K/mm3 0.0-0.1 MANUAL DIFF REQUIRED (test code=MDIFF) YES STAIN ACCEPTABILITY (test code=STN ACCEPTABLE) STAIN ACCEPTABLE TOTAL CELLS COUNTED (test code=TCC) 113 #CELLS SEGMENTED NEUTROPHILS (test code=SEG) 42.5 % 39-69 BAND NEUTROPHIL (test code=BAND) 0 % 0-10 LYMPHOCYTE (test code=LYMPH) 44.2 % 25-55 REACTIVE LYMPH (test code=RELYMPH) 0 % MONOCYTE (test code=MON) 5.3 % 0-10 EOSINOPHIL (test code=EOS) 4.4 % 0.0-5.0 BASOPHIL (test code=BASO) 2.7 % 0-1.0 METAMYELOCYTE (test code=META) 0 % 0-0 MYELOCYTE (test code=MYELO) 0.9 % 0.0-0.0 PROMYELOCYTE (test code=PROM) 0 % 0-0 ANISOCYTOSIS (test code=ANISO) 1+ MICROCYTOSIS (test code=MICR) 1+ PLATELET ESTIMATE (test code=PLTEST) ADEQUATE PLATELET MORPHOLOGY (test code=PLTMORPH) NORMAL IMMATURE FORMS (test code=IMMAT) 0 % BASIC METABOLIC [id number] 06:43:00* Test Item Value Reference Range Comments SODIUM (test code=NA) 139 mmol/L 136-145 POTASSIUM (test code=K) 5.3 mmol/L 3.5-5.1 CHLORIDE (test code=CL) 104.0 mmol/L 98-107 CARBON DIOXIDE (test code=CO2) mmol/L 21-32 ANION GAP (test code=GAP) 10-20 GLUCOSE (test code=GLU) mg/dL 74-106 BLOOD UREA NITROGEN (test code=BUN) mg/dL 7-18 GLOMERULAR FILTRATION RATE (test code=GFR) mL/min >=60 CREATININE (test code=CREAT) mg/dL 0.7-1.3 BUN/CREATININE RATIO (test code=BUN/CREA) 10-20 CALCIUM (test code=CA) mg/dL 8.5-10.1 CBC W/MANUAL [id number] 06:22:00* Test Item Value Reference Range Comments WHITE BLOOD CELL (test code=WBC) 10.9 K/mm3 4.5-12.5 RED BLOOD CELL (test code=RBC) 3.30 mill/mm3 4.0-5.8 HEMOGLOBIN (test code=HGB) 10.0 gram/dL 13.0-17.5 HEMATOCRIT (test code=HCT) 31.5 % 42.0-52.0 MEAN CELL VOLUME (test code=MCV) 95.5 fL 80-98 MEAN CELL HGB (test code=MCH) 30.3 picogram 27.0-33.0 MEAN CELL HGB CONCETRATION (test code=MCHC) 31.7 gram/dL 33.0-36.0 RED CELL DISTRIBUTION WIDTH (test code=RDW) 12.5 % 11.6-16.2 RED CELL DISTRIBUTION WIDTH SD (test code=RDW-SD) 43.8 fL 37.0-51.0 PLATELET COUNT (test code=PLT) 158 K/mm3 150-450 MEAN PLATELET VOLUME (test code=MPV) 9.8 fL 6.7-11.0 IMMATURE GRANULOCYTE % (test code=IG%) 0.3 % 0.0-5.0 NUCLEATED RBC % (test code=NRBC%) 0.0 % 0-0 NEUTROPHIL # (test code=NT#) 3.50 K/mm3 1.8-7.7 IMMATURE GRANULOCYTE # (test code=IG#) 0.03 x10 3/uL 0-0.03 LYMPHOCYTE # (test code=LY#) 5.90 K/mm3 1.0-5.0 MONOCYTE # (test code=MO#) 0.84 K/mm3 0-0.8 EOSINOPHIL # (test code=EO#) 0.60 K/mm3 0.0-0.5 BASOPHIL # (test code=BA#) 0.07 K/mm3 0.0-0.2 NUCLEATED RBC # (test code=NRBC#) 0.00 K/mm3 0.0-0.1 MANUAL DIFF REQUIRED (test code=MDIFF) YES STAIN ACCEPTABILITY (test code=STN ACCEPTABLE) TOTAL CELLS COUNTED (test code=TCC) #CELLS SEGMENTED NEUTROPHILS (test code=SEG) % 39-69 LYMPHOCYTE (test code=LYMPH) % 25-55 MONOCYTE (test code=MON) % 0-10 EOSINOPHIL (test code=EOS) % 0.0-5.0 CABOT RINGS (test code=CAB) MORPHOLOGY COMMENT (test code=MOC) PLATELET ESTIMATE (test code=PLTEST) PLATELET MORPHOLOGY (test code=PLTMORPH) CBC W/MANUAL [id number] 06:22:00* Test Item Value Reference Range Comments WHITE BLOOD CELL (test code=WBC) 10.9 K/mm3 4.5-12.5 RED BLOOD CELL (test code=RBC) 3.30 mill/mm3 4.0-5.8 HEMOGLOBIN (test code=HGB) 10.0 gram/dL 13.0-17.5 HEMATOCRIT (test code=HCT) 31.5 % 42.0-52.0 MEAN CELL VOLUME (test code=MCV) 95.5 fL 80-98 MEAN CELL HGB (test code=MCH) 30.3 picogram 27.0-33.0 MEAN CELL HGB CONCETRATION (test code=MCHC) 31.7 gram/dL 33.0-36.0 RED CELL DISTRIBUTION WIDTH (test code=RDW) 12.5 % 11.6-16.2 RED CELL DISTRIBUTION WIDTH SD (test code=RDW-SD) 43.8 fL 37.0-51.0 PLATELET COUNT (test code=PLT) 158 K/mm3 150-450 MEAN PLATELET VOLUME (test code=MPV) 9.8 fL 6.7-11.0 IMMATURE GRANULOCYTE % (test code=IG%) 0.3 % 0.0-5.0 NUCLEATED RBC % (test code=NRBC%) 0.0 % 0-0 NEUTROPHIL # (test code=NT#) 3.50 K/mm3 1.8-7.7 IMMATURE GRANULOCYTE # (test code=IG#) 0.03 x10 3/uL 0-0.03 LYMPHOCYTE # (test code=LY#) 5.90 K/mm3 1.0-5.0 MONOCYTE # (test code=MO#) 0.84 K/mm3 0-0.8 EOSINOPHIL # (test code=EO#) 0.60 K/mm3 0.0-0.5 BASOPHIL # (test code=BA#) 0.07 K/mm3 0.0-0.2 NUCLEATED RBC # (test code=NRBC#) 0.00 K/mm3 0.0-0.1 MANUAL DIFF REQUIRED (test code=MDIFF) YES STAIN ACCEPTABILITY (test code=STN ACCEPTABLE) TOTAL CELLS COUNTED (test code=TCC) #CELLS SEGMENTED NEUTROPHILS (test code=SEG) % 39-69 LYMPHOCYTE (test code=LYMPH) % 25-55 MONOCYTE (test code=MON) % 0-10 EOSINOPHIL (test code=EOS) % 0.0-5.0 CABOT RINGS (test code=CAB) MORPHOLOGY COMMENT (test code=MOC) PLATELET ESTIMATE (test code=PLTEST) PLATELET MORPHOLOGY (test code=PLTMORPH) CBC W/MANUAL [id number] 06:22:00* Test Item Value Reference Range Comments WHITE BLOOD CELL (test code=WBC) 10.9 K/mm3 4.5-12.5 RED BLOOD CELL (test code=RBC) 3.30 mill/mm3 4.0-5.8 HEMOGLOBIN (test code=HGB) 10.0 gram/dL 13.0-17.5 HEMATOCRIT (test code=HCT) 31.5 % 42.0-52.0 MEAN CELL VOLUME (test code=MCV) 95.5 fL 80-98 MEAN CELL HGB (test code=MCH) 30.3 picogram 27.0-33.0 MEAN CELL HGB CONCETRATION (test code=MCHC) 31.7 gram/dL 33.0-36.0 RED CELL DISTRIBUTION WIDTH (test code=RDW) 12.5 % 11.6-16.2 RED CELL DISTRIBUTION WIDTH SD (test code=RDW-SD) 43.8 fL 37.0-51.0 PLATELET COUNT (test code=PLT) 158 K/mm3 150-450 MEAN PLATELET VOLUME (test code=MPV) 9.8 fL 6.7-11.0 IMMATURE GRANULOCYTE % (test code=IG%) 0.3 % 0.0-5.0 NUCLEATED RBC % (test code=NRBC%) 0.0 % 0-0 NEUTROPHIL # (test code=NT#) 3.50 K/mm3 1.8-7.7 IMMATURE GRANULOCYTE # (test code=IG#) 0.03 x10 3/uL 0-0.03 LYMPHOCYTE # (test code=LY#) 5.90 K/mm3 1.0-5.0 MONOCYTE # (test code=MO#) 0.84 K/mm3 0-0.8 EOSINOPHIL # (test code=EO#) 0.60 K/mm3 0.0-0.5 BASOPHIL # (test code=BA#) 0.07 K/mm3 0.0-0.2 NUCLEATED RBC # (test code=NRBC#) 0.00 K/mm3 0.0-0.1 MANUAL DIFF REQUIRED (test code=MDIFF) YES STAIN ACCEPTABILITY (test code=STN ACCEPTABLE) TOTAL CELLS COUNTED (test code=TCC) #CELLS SEGMENTED NEUTROPHILS (test code=SEG) % 39-69 LYMPHOCYTE (test code=LYMPH) % 25-55 MONOCYTE (test code=MON) % 0-10 EOSINOPHIL (test code=EOS) % 0.0-5.0 MORPHOLOGY COMMENT (test code=MOC) PLATELET ESTIMATE (test code=PLTEST) PLATELET MORPHOLOGY (test code=PLTMORPH) CBC W/MANUAL [id number] 06:22:00* Test Item Value Reference Range Comments WHITE BLOOD CELL (test code=WBC) 10.9 K/mm3 4.5-12.5 RED BLOOD CELL (test code=RBC) 3.30 mill/mm3 4.0-5.8 HEMOGLOBIN (test code=HGB) 10.0 gram/dL 13.0-17.5 HEMATOCRIT (test code=HCT) 31.5 % 42.0-52.0 MEAN CELL VOLUME (test code=MCV) 95.5 fL 80-98 MEAN CELL HGB (test code=MCH) 30.3 picogram 27.0-33.0 MEAN CELL HGB CONCETRATION (test code=MCHC) 31.7 gram/dL 33.0-36.0 RED CELL DISTRIBUTION WIDTH (test code=RDW) 12.5 % 11.6-16.2 RED CELL DISTRIBUTION WIDTH SD (test code=RDW-SD) 43.8 fL 37.0-51.0 PLATELET COUNT (test code=PLT) 158 K/mm3 150-450 MEAN PLATELET VOLUME (test code=MPV) 9.8 fL 6.7-11.0 IMMATURE GRANULOCYTE % (test code=IG%) 0.3 % 0.0-5.0 NUCLEATED RBC % (test code=NRBC%) 0.0 % 0-0 NEUTROPHIL # (test code=NT#) 3.50 K/mm3 1.8-7.7 IMMATURE GRANULOCYTE # (test code=IG#) 0.03 x10 3/uL 0-0.03 LYMPHOCYTE # (test code=LY#) 5.90 K/mm3 1.0-5.0 MONOCYTE # (test code=MO#) 0.84 K/mm3 0-0.8 EOSINOPHIL # (test code=EO#) 0.60 K/mm3 0.0-0.5 BASOPHIL # (test code=BA#) 0.07 K/mm3 0.0-0.2 NUCLEATED RBC # (test code=NRBC#) 0.00 K/mm3 0.0-0.1 MANUAL DIFF REQUIRED (test code=MDIFF) YES STAIN ACCEPTABILITY (test code=STN ACCEPTABLE) TOTAL CELLS COUNTED (test code=TCC) #CELLS SEGMENTED NEUTROPHILS (test code=SEG) % 39-69 LYMPHOCYTE (test code=LYMPH) % 25-55 MONOCYTE (test code=MON) % 0-10 MORPHOLOGY COMMENT (test code=MOC) PLATELET ESTIMATE (test code=PLTEST) PLATELET MORPHOLOGY (test code=PLTMORPH) CBC W/MANUAL [id number] 06:22:00* Test Item Value Reference Range Comments WHITE BLOOD CELL (test code=WBC) 10.9 K/mm3 4.5-12.5 RED BLOOD CELL (test code=RBC) 3.30 mill/mm3 4.0-5.8 HEMOGLOBIN (test code=HGB) 10.0 gram/dL 13.0-17.5 HEMATOCRIT (test code=HCT) 31.5 % 42.0-52.0 MEAN CELL VOLUME (test code=MCV) 95.5 fL 80-98 MEAN CELL HGB (test code=MCH) 30.3 picogram 27.0-33.0 MEAN CELL HGB CONCETRATION (test code=MCHC) 31.7 gram/dL 33.0-36.0 RED CELL DISTRIBUTION WIDTH (test code=RDW) 12.5 % 11.6-16.2 RED CELL DISTRIBUTION WIDTH SD (test code=RDW-SD) 43.8 fL 37.0-51.0 PLATELET COUNT (test code=PLT) 158 K/mm3 150-450 MEAN PLATELET VOLUME (test code=MPV) 9.8 fL 6.7-11.0 IMMATURE GRANULOCYTE % (test code=IG%) 0.3 % 0.0-5.0 NUCLEATED RBC % (test code=NRBC%) 0.0 % 0-0 NEUTROPHIL # (test code=NT#) 3.50 K/mm3 1.8-7.7 IMMATURE GRANULOCYTE # (test code=IG#) 0.03 x10 3/uL 0-0.03 LYMPHOCYTE # (test code=LY#) 5.90 K/mm3 1.0-5.0 MONOCYTE # (test code=MO#) 0.84 K/mm3 0-0.8 EOSINOPHIL # (test code=EO#) 0.60 K/mm3 0.0-0.5 BASOPHIL # (test code=BA#) 0.07 K/mm3 0.0-0.2 NUCLEATED RBC # (test code=NRBC#) 0.00 K/mm3 0.0-0.1 MANUAL DIFF REQUIRED (test code=MDIFF) YES STAIN ACCEPTABILITY (test code=STN ACCEPTABLE) TOTAL CELLS COUNTED (test code=TCC) #CELLS SEGMENTED NEUTROPHILS (test code=SEG) % 39-69 LYMPHOCYTE (test code=LYMPH) % 25-55 MONOCYTE (test code=MON) % 0-10 EOSINOPHIL (test code=EOS) % 0.0-5.0 CABOT RINGS (test code=CAB) MORPHOLOGY COMMENT (test code=MOC) PLATELET ESTIMATE (test code=PLTEST) PLATELET MORPHOLOGY (test code=PLTMORPH) [id number] 20:30:00* Test Item Value Reference Range Comments GLUBED (test code=GLUBED) 166 mg/dL 74-106 Performed by certified corking machine operator at [facility] [id number] 20:29:00* Test Item Value Reference Range Comments GLUBED (test code=GLUBED) 201 mg/dL 74-106 Performed by certified corking machine operator at [facility] - MRI LOW EXT W/O CONT [id number] 15:14:00 FAX: Juvenal Holloway MD [phone] Jones: B St: [facility] FAX: Ascencion Funes [phone] Name: SYEDA POWERS [facility] : 1970 Age/S: 47/M [address] [facility] Unit #: [id number] Loc: [place] [address] Phys: Ascencion Funes DPNathaniel Acct: [id number] Dis Date: Status: ADM IN PHONE #: [phone] Exam Date: 09/03/2018 1459 FAX #: [phone] Reason: evaluate for osteomye litis EXAMS: CPT CODE: [id number] MRI LOW EXT W/[place] [address] HISTORY: Evaluate for osteomyelitis. COMPARISON: F ebruary 2018. Note: This exam is now available. MRI right foot without contrast: Study is nondiagnostic due to sev ere motion artifact. Electronically Signed by Nida Velasquez on 0 09/06/2018 at 1514 Reported and signed by: Manish Velasquez M.D. CC: Juvenal Forde MD; Ascencion Funes DPM Technologist: BERHANE ADAMSRT - MRI Trnscrd Date/Time/By: 09/06/2018 (1514) : By: [email or web address] Orig Print D/T: S: 09/08/2018 (2169) PAGE 1 Signed Report [id number] 12:25:00* Test Item Value Reference Range Comments GLUBED (test code=GLUBED) 183 mg/dL 74-106 Performed by certified corking machine operator at [facility] [id number] 12:25:00* Test Item Value Reference Range Comments GLUBED (test code=GLUBED) 303 mg/dL 74-106 Performed by certified corking machine operator at [facility] BASIC METABOLIC [id number] 08:11:00* Test Item Value Reference Range Comments SODIUM (test code=NA) 142 mmol/L 136-145 RESULT VERIFIED BY REPEAT ANALYSIS POTASSIUM (test code=K) 4.8 mmol/L 3.5-5.1 CHLORIDE (test code=CL) 107.0 mmol/L 98-107 CARBON DIOXIDE (test code=CO2) 27.0 mmol/L 21-32 ANION GAP (test code=GAP) 12.8 10-20 GLUCOSE (test code=GLU) 256 mg/dL 74-106 BLOOD UREA NITROGEN (test code=BUN) 63 mg/dL 7-18 RESULT VERIFIED BY REPEAT ANALYSIS GLOMERULAR FILTRATION RATE (test code=GFR) 11 mL/min >=60 Estimated GFR by using Modified MDRD formula.Chronic kidney disease is defined as either kidney damageor GFR <60 mL/min/1.73 m2 for >3 months. CREATININE (test code=CREAT) 5.60 mg/dL 0.7-1.3 BUN/CREATININE RATIO (test code=BUN/CREA) 11.3 10-20 CALCIUM (test code=CA) 8.2 mg/dL 8.5-10.1 CBC W/AUTO [id number] 06:00:00* Test Item Value Reference Range Comments WHITE BLOOD CELL (test code=WBC) 10.5 K/mm3 4.5-12.5 RED BLOOD CELL (test code=RBC) 3.35 mill/mm3 4.0-5.8 HEMOGLOBIN (test code=HGB) 10.2 gram/dL 13.0-17.5 HEMATOCRIT (test code=HCT) 31.5 % 42.0-52.0 MEAN CELL VOLUME (test code=MCV) 94.0 fL 80-98 MEAN CELL HGB (test code=MCH) 30.4 picogram 27.0-33.0 MEAN CELL HGB CONCETRATION (test code=MCHC) 32.4 gram/dL 33.0-36.0 RED CELL DISTRIBUTION WIDTH (test code=RDW) 12.6 % 11.6-16.2 RED CELL DISTRIBUTION WIDTH SD (test code=RDW-SD) 43.6 fL 37.0-51.0 PLATELET COUNT (test code=PLT) 170 K/mm3 150-450 MEAN PLATELET VOLUME (test code=MPV) 9.9 fL 6.7-11.0 NEUTROPHIL % (test code=NT%) 37.7 % 39.0-69.0 IMMATURE GRANULOCYTE % (test code=IG%) 0.6 % 0.0-5.0 LYMPHOCYTE % (test code=LY%) 49.9 % 25.0-55.0 MONOCYTE % (test code=MO%) 7.0 % 0.0-10.0 EOSINOPHIL % (test code=EO%) 4.1 % 0.0-5.0 BASOPHIL % (test code=BA%) 0.7 % 0.0-1.0 NUCLEATED RBC % (test code=NRBC%) 0.0 % 0-0 NEUTROPHIL # (test code=NT#) 3.95 K/mm3 1.8-7.7 IMMATURE GRANULOCYTE # (test code=IG#) 0.06 x10 3/uL 0-0.03 LYMPHOCYTE # (test code=LY#) 5.21 K/mm3 1.0-5.0 MONOCYTE # (test code=MO#) 0.73 K/mm3 0-0.8 EOSINOPHIL # (test code=EO#) 0.43 K/mm3 0.0-0.5 BASOPHIL # (test code=BA#) 0.07 K/mm3 0.0-0.2 NUCLEATED RBC # (test code=NRBC#) 0.00 K/mm3 0.0-0.1 [id number] 20:54:00* Test Item Value Reference Range Comments GLUBED (test code=GLUBED) 221 mg/dL 74-106 Performed by certified corking machine operator at [facility] [id number] 20:42:00* Test Item Value Reference Range Comments GLUBED (test code=GLUBED) 238 mg/dL 74-106 Performed by certified corking machine operator at [facility] [id number] 20:41:00* Test Item Value Reference Range Comments GLUBED (test code=GLUBED) 250 mg/dL 74-106 Performed by certified corking machine operator at [facility] [id number] 10:02:00* Test Item Value Reference Range Comments GLUBED (test code=GLUBED) 310 mg/dL 74-106 Per[facility] by certified corking machine operator [facility]ified [facility]~ BASIC METABOLIC [id number] 06:34:00* Test Item Value Reference Range Comments SODIUM (test code=NA) 136 mmol/L 136-145 POTASSIUM (test code=K) 4.5 mmol/L 3.5-5.1 CHLORIDE (test code=CL) 100.0 mmol/L 98-107 CARBON DIOXIDE (test code=CO2) 30.0 mmol/L 21-32 ANION GAP (test code=GAP) 10.5 10-20 GLUCOSE (test code=GLU) 323 mg/dL 74-106 BLOOD UREA NITROGEN (test code=BUN) 45 mg/dL 7-18 RESULT VERIFIED BY REPEAT ANALYSIS GLOMERULAR FILTRATION RATE (test code=GFR) 13 mL/min >=60 Estimated GFR by using Modified MDRD formula.Chronic kidney disease is defined as either kidney damageor GFR <60 mL/min/1.73 m2 for >3 months. CREATININE (test code=CREAT) 4.90 mg/dL 0.7-1.3 BUN/CREATININE RATIO (test code=BUN/CREA) 9.2 10-20 CALCIUM (test code=CA) 8.2 mg/dL 8.5-10.1 BASIC METABOLIC [id number] 05:46:00* Test Item Value Reference Range Comments SODIUM (test code=NA) 136 mmol/L 136-145 POTASSIUM (test code=K) 4.5 mmol/L 3.5-5.1 CHLORIDE (test code=CL) 100.0 mmol/L 98-107 CARBON DIOXIDE (test code=CO2) mmol/L 21-32 ANION GAP (test code=GAP) 10-20 GLUCOSE (test code=GLU) mg/dL 74-106 BLOOD UREA NITROGEN (test code=BUN) mg/dL 7-18 GLOMERULAR FILTRATION RATE (test code=GFR) mL/min >=60 CREATININE (test code=CREAT) mg/dL 0.7-1.3 BUN/CREATININE RATIO (test code=BUN/CREA) 10-20 CALCIUM (test code=CA) mg/dL 8.5-10.1 CBC W/AUTO [id number] 05:28:00* Test Item Value Reference Range Comments WHITE BLOOD CELL (test code=WBC) 13.6 K/mm3 4.5-12.5 RED BLOOD CELL (test code=RBC) 3.43 mill/mm3 4.0-5.8 HEMOGLOBIN (test code=HGB) 10.6 gram/dL 13.0-17.5 HEMATOCRIT (test code=HCT) 31.3 % 42.0-52.0 MEAN CELL VOLUME (test code=MCV) 91.3 fL 80-98 MEAN CELL HGB (test code=MCH) 30.9 picogram 27.0-33.0 MEAN CELL HGB CONCETRATION (test code=MCHC) 33.9 gram/dL 33.0-36.0 RED CELL DISTRIBUTION WIDTH (test code=RDW) 12.4 % 11.6-16.2 RED CELL DISTRIBUTION WIDTH SD (test code=RDW-SD) 41.0 fL 37.0-51.0 PLATELET COUNT (test code=PLT) 152 K/mm3 150-450 MEAN PLATELET VOLUME (test code=MPV) 9.6 fL 6.7-11.0 NEUTROPHIL % (test code=NT%) 63.0 % 39.0-69.0 IMMATURE GRANULOCYTE % (test code=IG%) 0.5 % 0.0-5.0 LYMPHOCYTE % (test code=LY%) 29.9 % 25.0-55.0 MONOCYTE % (test code=MO%) 6.4 % 0.0-10.0 EOSINOPHIL % (test code=EO%) 0.0 % 0.0-5.0 BASOPHIL % (test code=BA%) 0.2 % 0.0-1.0 NUCLEATED RBC % (test code=NRBC%) 0.0 % 0-0 NEUTROPHIL # (test code=NT#) 8.57 K/mm3 1.8-7.7 IMMATURE GRANULOCYTE # (test code=IG#) 0.07 x10 3/uL 0-0.03 LYMPHOCYTE # (test code=LY#) 4.06 K/mm3 1.0-5.0 MONOCYTE # (test code=MO#) 0.87 K/mm3 0-0.8 EOSINOPHIL # (test code=EO#) 0.00 K/mm3 0.0-0.5 BASOPHIL # (test code=BA#) 0.03 K/mm3 0.0-0.2 NUCLEATED RBC # (test code=NRBC#) 0.00 K/mm3 0.0-0.1 [id number] 20:14:00* Test Item Value Reference Range Comments GLUBED (test code=GLUBED) 319 mg/dL 74-106 Performed by certified corking machine operator at [facility] CBC W/O [id number] 16:10:00* Test Item Value Reference Range Comments WHITE BLOOD CELL (test code=WBC) 9.5 K/mm3 4.5-12.5 RED BLOOD CELL (test code=RBC) 3.61 mill/mm3 4.0-5.8 HEMOGLOBIN (test code=HGB) 10.8 gram/dL 13.0-17.5 HEMATOCRIT (test code=HCT) 33.2 % 42.0-52.0 MEAN CELL VOLUME (test code=MCV) 92.0 fL 80-98 MEAN CELL HGB (test code=MCH) 29.9 picogram 27.0-33.0 MEAN CELL HGB CONCETRATION (test code=MCHC) 32.5 gram/dL 33.0-36.0 RED CELL DISTRIBUTION WIDTH (test code=RDW) 12.5 % 11.6-16.2 PLATELET COUNT (test code=PLT) 147 K/mm3 150-450 MEAN PLATELET VOLUME (test code=MPV) 9.4 fL 6.7-11.0 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 IS A SUPER HARD MARLEN [facility] AND [employer].EP09/04/18 0653- XR FOOT 3 + V [id number] 12:15:00 FAX: Juvenal Holloway MD [phone] Jones: St: [facility] FAX: Ascencion Funes [phone] Name: POWERSSYEDAREN [facility] : 1970 Age/S: 47/M [address] [facility] Unit #: [id number] Loc: [id number] [place] [address] Phys: Ascencion Funes [facility] Acct: [id number] Dis Date: Status: ADM IN PHONE #: [phone] Exam Date: 09/04/2018 1017 FAX #: [phone] Reason: Post op Transmetatarsal Amputation EXAMS: CPT CODE: [id number] XR FOOT 3 + V RT [id number] CLINICAL HISTORY: Post op Transmetatarsal Amputation TECHNIQUE: AP, oblique, and lateral views of the right foot COMPARISON: Radiographs of the foot the previous afternoon FINDINGS: The patient has undergone interval transmetatarsal amputation of the right foot. There is a catheter terminating in the soft tissues in the first me tatarsal space which may represent an infusion catheter for antibiotics. T he soft tissues at the amputation site are swollen and there are small poc kets of gas which may be postsurgical. IMPRESSION: Interva l transmetatarsal amputation of the right foot at 1215 Reported and si gned by: Miller Gutierrez MD CC: Juvenal Forde MD; Nathaniel Funes DPM Technologist: Zulema Wilson RT(R) Trnscrd Date/Time/By: 09/04/2018 (9772) : By: [email or web address] Orig Print D/T: S: 09/04/2018 (6125) PAGE 1 Signed Report [id number] 11:48:00 * Test Item Value Reference Range Comments GLUBED (test code=GLUBED) 181 mg/dL 74-106 Performed by certified corking machine operator at [facility] BASIC METABOLIC [id number] 07:12:00* Test Item Value Reference Range Comments SODIUM (test code=NA) 137 mmol/L 136-145 POTASSIUM (test code=K) 5.2 mmol/L 3.5-5.1 CHLORIDE (test code=CL) 106.0 mmol/L 98-107 CARBON DIOXIDE (test code=CO2) 19.0 mmol/L 21-32 ANION GAP (test code=GAP) 17.2 10-20 GLUCOSE (test code=GLU) 183 mg/dL 74-106 BLOOD UREA NITROGEN (test code=BUN) 59 mg/dL 7-18 GLOMERULAR FILTRATION RATE (test code=GFR) 11 mL/min >=60 Estimated GFR by using Modified MDRD formula.Chronic kidney disease is defined as either kidney damageor GFR <60 mL/min/1.73 m2 for >3 months. CREATININE (test code=CREAT) 5.60 mg/dL 0.7-1.3 BUN/CREATININE RATIO (test code=BUN/CREA) 10.6 10-20 CALCIUM (test code=CA) 7.8 mg/dL 8.5-10.1 PATIENT IS A SUPER HARD STICK RAEANN AND AXEL TRIED. V.LAB.EP03/07/25 0652BASI METABOLIC [id number] 07:08:00* Test Item Value Reference Range Comments SODIUM (test code=NA) 137 mmol/L 136-145 POTASSIUM (test code=K) 5.2 mmol/L 3.5-5.1 CHLORIDE (test code=CL) 106.0 mmol/L 98-107 CARBON DIOXIDE (test code=CO2) mmol/L 21-32 ANION GAP (test code=GAP) 10-20 GLUCOSE (test code=GLU) mg/dL 74-106 BLOOD UREA NITROGEN (test code=BUN) mg/dL 7-18 GLOMERULAR FILTRATION RATE (test code=GFR) mL/min >=60 CREATININE (test code=CREAT) mg/dL 0.7-1.3 BUN/CREATININE RATIO (test code=BUN/CREA) 10-20 CALCIUM (test code=CA) mg/dL 8.5-10.1 PATIENT IS A SUPER HARD STICK RAEANN AND AXEL TRIED. V.LAB.EP03/07/25 0652GLUBED 2018-09-04 06:32:00* Test Item Value Reference Range Comments GLUBED (test code=GLUBED) 172 mg/dL 74-106 Performed by certified corking machine operator at [facility] [id number] 20:23:00* Test Item Value Reference Range Comments GLUBED (test code=GLUBED) 144 mg/dL 74-106 Performed by certified corking machine operator at [facility] [id number] 17:12:00* Test Item Value Reference Range Comments GLUBED (test code=GLUBED) 123 mg/dL 74-106 Performed by certified corking machine operator at [facility] [id number] 12:46:00* Test Item Value Reference Range Comments GLUBED (test code=GLUBED) 107 mg/dL 74-106 Performed by certified corking machine operator at [facility] FE W/TOTAL IRON BINDING CAP.2018-09-03 10:05:00* Test Item Value Reference Range Comments SERUM IRON (test code=IRON) 108 ug/dL 50-175 TOTAL IRON BINDING CAPACITY (test code=TIBC) 214 mcg/dL 250-450 IRON SATURATION (test code=FESAT) 50.47 % 13-45 [id number] 10:05:00* Test Item Value Reference Range Comments FERRITIN (test code=SELENA) 177 ng/mL 8-388 [id number] 08:03:00* Test Item Value Reference Range Comments GLUBED (test code=GLUBED) 166 mg/dL 74-106 Performed by certified corking machine operator at [facility] BASIC METABOLIC [id number] 06:04:00* Test Item Value Reference Range Comments SODIUM (test code=NA) 138 mmol/L 136-145 POTASSIUM (test code=K) 4.0 mmol/L 3.5-5.1 CHLORIDE (test code=CL) 101.0 mmol/L 98-107 CARBON DIOXIDE (test code=CO2) 27.0 mmol/L 21-32 ANION GAP (test code=GAP) 14.0 10-20 GLUCOSE (test code=GLU) 240 mg/dL 74-106 BLOOD UREA NITROGEN (test code=BUN) 42 mg/dL 7-18 GLOMERULAR FILTRATION RATE (test code=GFR) 14 mL/min >=60 Estimated GFR by using Modified MDRD formula.Chronic kidney disease is defined as either kidney damageor GFR <60 mL/min/1.73 m2 for >3 months. CREATININE (test code=CREAT) 4.50 mg/dL 0.7-1.3 BUN/CREATININE RATIO (test code=BUN/CREA) 9.3 10-20 CALCIUM (test code=CA) 8.3 mg/dL 8.5-10.1 BASIC METABOLIC [id number] 05:52:00* Test Item Value Reference Range Comments SODIUM (test code=NA) 138 mmol/L 136-145 POTASSIUM (test code=K) 4.0 mmol/L 3.5-5.1 CHLORIDE (test code=CL) 101.0 mmol/L 98-107 CARBON DIOXIDE (test code=CO2) mmol/L 21-32 ANION GAP (test code=GAP) 10-20 GLUCOSE (test code=GLU) mg/dL 74-106 BLOOD UREA NITROGEN (test code=BUN) mg/dL 7-18 GLOMERULAR FILTRATION RATE (test code=GFR) mL/min >=60 CREATININE (test code=CREAT) mg/dL 0.7-1.3 BUN/CREATININE RATIO (test code=BUN/CREA) 10-20 CALCIUM (test code=CA) mg/dL 8.5-10.1 [id number] 20:11:00* Test Item Value Reference Range Comments GLUBED (test code=GLUBED) 78 mg/dL 74-106 Performed by certified corking machine operator at [facility] [id number] 16:39:00* Test Item Value Reference Range Comments GLUBED (test code=GLUBED) 199 mg/dL 74-106 Performed by certified corking machine operator at [facility] - XR FOOT 3 + V [id number] 15:20:00 FAX: Juvenal Holloway MD [phone] Jones: St: ADM FAX: Ascencion Funes [phone] Name: SYEDA POWERS [facility] : 1970 Age/S: 47/M [address] [facility] Unit #: [id number] Loc: [address] [place] [address] Phys: Ascencion Funes DP Acct: [id number] Dis Date: Status: ADM IN PHONE #: [phone] Exam Date: 09/02/2018 1513 FAX #: [phone] Reason: evaluate for osteomye litis EXAMS: CPT CODE: [id number] XR FOOT 3 + [place] [address] CLINICAL HISTORY: evaluate for osteomyelitis TECHN IQUE: AP, oblique, and lateral views of the right foot COMPARISON: Right foot radiographs September 17, 2017 FINDINGS: Karen or amputation of the great toe. There is a fracture of the second metatars al head. The bone fragments are corticated suggesting that this is a chron ic finding. No other fractures are appreciated. Vascular calcific ations are noted. No evidence of bony resorption. IMPRESSION: Postsurgical changes of great toe amputati on. Fracture of the second metatarsal head with cortication of the bone fragment suggesting that this is a chronic finding. No other fractures and no areas of bone resorption. However a co ntrast-enhanced MRI is significantly more sensitive for detecting osteom yelitis than a radiograph. Electronically Signed by Miller carroll 09/02/2018 at 1520 Reported and signed by: Miller Gutierrez MD CC: Juvenal Forde MD; Ascencion Funes DPM Techn ologist: Candy Castro RT(R) Trnscrd Date/Nabil e/By: 09/02/2018 (1520) : By: [email or web address] Orig Print D/T: S: 09/02/2018 (0614) PAGE 1 Signed Report [id number] 08:54:00* Test Item Value Reference Range Comments GLUBED (test code=GLUBED) 213 mg/dL 74-106 Performed by certified corking machine operator at [facility] [id number] 07:37:00* Test Item Value Reference Range Comments GLUBED (test code=GLUBED) 193 mg/dL 74-106 Performed by certified corking machine operator at [facility] BASIC METABOLIC [id number] 07:28:00* Test Item Value Reference Range Comments SODIUM (test code=NA) 141 mmol/L 136-145 POTASSIUM (test code=K) 4.5 mmol/L 3.5-5.1 CHLORIDE (test code=CL) 105.0 mmol/L 98-107 CARBON DIOXIDE (test code=CO2) 28.0 mmol/L 21-32 ANION GAP (test code=GAP) 12.5 10-20 GLUCOSE (test code=GLU) 201 mg/dL 74-106 BLOOD UREA NITROGEN (test code=BUN) 51 mg/dL 7-18 GLOMERULAR FILTRATION RATE (test code=GFR) 14 mL/min >=60 Estimated GFR by using Modified MDRD formula.Chronic kidney disease is defined as either kidney damageor GFR <60 mL/min/1.73 m2 for >3 months. CREATININE (test code=CREAT) 4.60 mg/dL 0.7-1.3 BUN/CREATININE RATIO (test code=BUN/CREA) 11.2 10-20 CALCIUM (test code=CA) 8.1 mg/dL 8.5-10.1 [id number] 07:28:00* Test Item Value Reference Range Comments PHOSPHORUS (test code=PHOS) 5.7 mg/dL 2.5-4.9 [id number] 07:28:00* Test Item Value Reference Range Comments MAGNESIUM (test code=MAG) 1.9 mg/dL 1.8-2.4 BASIC METABOLIC [id number] 07:15:00* Test Item Value Reference Range Comments SODIUM (test code=NA) 141 mmol/L 136-145 POTASSIUM (test code=K) 4.5 mmol/L 3.5-5.1 CHLORIDE (test code=CL) 105.0 mmol/L 98-107 CARBON DIOXIDE (test code=CO2) mmol/L 21-32 ANION GAP (test code=GAP) 10-20 GLUCOSE (test code=GLU) mg/dL 74-106 BLOOD UREA NITROGEN (test code=BUN) mg/dL 7-18 GLOMERULAR FILTRATION RATE (test code=GFR) mL/min >=60 CREATININE (test code=CREAT) mg/dL 0.7-1.3 BUN/CREATININE RATIO (test code=BUN/CREA) 10-20 CALCIUM (test code=CA) mg/dL 8.5-10.1 [id number] 07:15:00* Test Item Value Reference Range Comments PHOSPHORUS (test code=PHOS) mg/dL 2.5-4.9 [id number] 07:15:00* Test Item Value Reference Range Comments MAGNESIUM (test code=MAG) mg/dL 1.8-2.4 CBC W/O [id number] 06:47:00* Test Item Value Reference Range Comments WHITE BLOOD CELL (test code=WBC) 9.4 K/mm3 4.5-12.5 RED BLOOD CELL (test code=RBC) 3.66 mill/mm3 4.0-5.8 HEMOGLOBIN (test code=HGB) 11.1 gram/dL 13.0-17.5 HEMATOCRIT (test code=HCT) 33.8 % 42.0-52.0 MEAN CELL VOLUME (test code=MCV) 92.3 fL 80-98 MEAN CELL HGB (test code=MCH) 30.3 picogram 27.0-33.0 MEAN CELL HGB CONCETRATION (test code=MCHC) 32.8 gram/dL 33.0-36.0 RED CELL DISTRIBUTION WIDTH (test code=RDW) 12.7 % 11.6-16.2 PLATELET COUNT (test code=PLT) 156 K/mm3 150-450 MEAN PLATELET VOLUME (test code=MPV) 9.4 fL 6.7-11.0 [id number] 20:32:00* Test Item Value Reference Range Comments GLUBED (test code=GLUBED) 88 mg/dL 74-106 Performed by certified corking machine operator at [facility] [id number] 16:31:00* Test Item Value Reference Range Comments GLUBED (test code=GLUBED) 221 mg/dL 74-106 Performed by certified corking machine operator at [facility] [id number] 16:31:00* Test Item Value Reference Range Comments GLUBED (test code=GLUBED) 121 mg/dL 74-106 Performed by certified corking machine operator at [facility] T4 [id number] 15:45:00* Test Item Value Reference Range Comments T4 FREE (test code=T4F) 1.16 ng/dL 0.76-1.46 THYROID STIMULATING [id number] 15:45:00* Test Item Value Reference Range Comments THYROID STIMULATING HORMONE (test code=TSH) 2.300 uIU/mL 0.36-3.74 TSH REFERENCE RANGES: EUTHYROID: 0.35 - 4.3 mIU/mL HYPO : > 5.5 mIU/mL HYPER : < 0.35 mIU/mL [id number] 15:34:00* Test Item Value Reference Range Comments GLYCOSYLATED HEMOGLOBIN (HA1C) (test code=GLYHGB) 6.5 % HbA1 4.8-6.0 ESTIMATED AVERAGE GLUCOSE (test code=EAG) 140 MG/DL CBC W/AUTO [id number] 11:12:00* Test Item Value Reference Range Comments WHITE BLOOD CELL (test code=WBC) 7.7 K/mm3 4.5-12.5 RED BLOOD CELL (test code=RBC) 3.37 mill/mm3 4.0-5.8 HEMOGLOBIN (test code=HGB) 10.3 gram/dL 13.0-17.5 HEMATOCRIT (test code=HCT) 31.2 % 42.0-52.0 MEAN CELL VOLUME (test code=MCV) 92.6 fL 80-98 MEAN CELL HGB (test code=MCH) 30.6 picogram 27.0-33.0 MEAN CELL HGB CONCETRATION (test code=MCHC) 33.0 gram/dL 33.0-36.0 RED CELL DISTRIBUTION WIDTH (test code=RDW) 12.6 % 11.6-16.2 RED CELL DISTRIBUTION WIDTH SD (test code=RDW-SD) 42.7 fL 37.0-51.0 PLATELET COUNT (test code=PLT) 154 K/mm3 150-450 MEAN PLATELET VOLUME (test code=MPV) 9.3 fL 6.7-11.0 NEUTROPHIL % (test code=NT%) 29.2 % 39.0-69.0 IMMATURE GRANULOCYTE % (test code=IG%) 0.1 % 0.0-5.0 LYMPHOCYTE % (test code=LY%) 55.2 % 25.0-55.0 MONOCYTE % (test code=MO%) 8.8 % 0.0-10.0 EOSINOPHIL % (test code=EO%) 6.1 % 0.0-5.0 BASOPHIL % (test code=BA%) 0.6 % 0.0-1.0 NUCLEATED RBC % (test code=NRBC%) 0.0 % 0-0 NEUTROPHIL # (test code=NT#) 2.26 K/mm3 1.8-7.7 IMMATURE GRANULOCYTE # (test code=IG#) 0.01 x10 3/uL 0-0.03 LYMPHOCYTE # (test code=LY#) 4.27 K/mm3 1.0-5.0 MONOCYTE # (test code=MO#) 0.68 K/mm3 0-0.8 EOSINOPHIL # (test code=EO#) 0.47 K/mm3 0.0-0.5 BASOPHIL # (test code=BA#) 0.05 K/mm3 0.0-0.2 NUCLEATED RBC # (test code=NRBC#) 0.00 K/mm3 0.0-0.1 MANUAL DIFF REQUIRED (test code=MDIFF) NO BASIC METABOLIC [id number] 11:00:00* Test Item Value Reference Range Comments SODIUM (test code=NA) 141 mmol/L 136-145 POTASSIUM (test code=K) 4.8 mmol/L 3.5-5.1 CHLORIDE (test code=CL) 108.0 mmol/L 98-107 CARBON DIOXIDE (test code=CO2) 26.0 mmol/L 21-32 ANION GAP (test code=GAP) 11.8 10-20 GLUCOSE (test code=GLU) 191 mg/dL 74-106 BLOOD UREA NITROGEN (test code=BUN) 62 mg/dL 7-18 GLOMERULAR FILTRATION RATE (test code=GFR) 12 mL/min >=60 Estimated GFR by using Modified MDRD formula.Chronic kidney disease is defined as either kidney damageor GFR <60 mL/min/1.73 m2 for >3 months. CREATININE (test code=CREAT) 5.20 mg/dL 0.7-1.3 BUN/CREATININE RATIO (test code=BUN/CREA) 11.9 10-20 CALCIUM (test code=CA) 8.0 mg/dL 8.5-10.1 BASIC METABOLIC [id number] 10:56:00* Test Item Value Reference Range Comments SODIUM (test code=NA) 141 mmol/L 136-145 POTASSIUM (test code=K) 4.8 mmol/L 3.5-5.1 CHLORIDE (test code=CL) 108.0 mmol/L 98-107 CARBON DIOXIDE (test code=CO2) mmol/L 21-32 ANION GAP (test code=GAP) 10-20 GLUCOSE (test code=GLU) mg/dL 74-106 BLOOD UREA NITROGEN (test code=BUN) mg/dL 7-18 GLOMERULAR FILTRATION RATE (test code=GFR) mL/min >=60 CREATININE (test code=CREAT) mg/dL 0.7-1.3 BUN/CREATININE RATIO (test code=BUN/CREA) 10-20 CALCIUM (test code=CA) mg/dL 8.5-10.1 [id number] 10:53:00* Test Item Value Reference Range Comments TROPONIN-I (test code=TROPI) <0.015 ng/mL 0-0.045 AG HEPAT B [id number] 09:52:00* Test Item Value Reference Range Comments AG HEPAT B SURF (test code=HBSAG) Nonreactive Index Nonreactive [id number] 03:08:00* Test Item Value Reference Range Comments TROPONIN-I (test code=TROPI) <0.015 ng/mL 0-0.045 THYROID PROFILE [id number] 22:14:00* Test Item Value Reference Range Comments T3 UPTAKE (test code=T3UP) 35.0 % 30.0-40.0 T4 (THYROXINE) (test code=T4) 9.7 ug/dL 4.5-13.9 T7 (FREE THYROXINE INDEX) (test code=T7) 3.39 FTI 1.3-5.1 THYROID STIMULATING HORMONE (test code=TSH) 1.860 uIU/mL 0.36-3.74 TSH REFERENCE RANGES: EUTHYROID: 0.35 - 4.3 mIU/mL HYPO : > 5.5 mIU/mL HYPER : < 0.35 mIU/mL - CT HEAD/BRAIN W/O [id number] 22:10:00 Name: SYEDA POWERS [facility] : 1970 Age/S: 47 / M [address] [facility] Unit #: [id number] Loc: [place] [address] Phys: Juvenal Forde MD Acct: [id number] Dis Date: Status: ADM IN PHONE #: [phone] Exam Date: 08/31/20182121 FAX #: [phone] Reason: DIZZINESS EXAMS: CPT CODE: [id number] CT HEAD/BRAIN W/O CONT 79066 EXAM: CT of the head; INFORMATION: Dizziness; TECHNIQUE AND FINDINGS: CT dose reduction protocol; The ventricles are symmetric and of normal diameter; normal width of basilar cisterns and sulci; normal [place]/white matter differentiation; no evidence of intra or extra-axial hemorrhage, mass lesion or midline shift. Bone windows show no abnormalities. Small mucoid retention cyst in the right maxillary sinus. I MPRESSION: Normal CT scan of the brain. Small right maxillary re tention cyst. No significant change compared with a study from July 082017. at 2210 Reported and signed by: Greg Dykes M.D. CC: Juvenal Forde MD Technologist:Courtney Jacob RT(R) CTDI: DLP: Trnscb Date/Time: 08/31/2018 (2209) [place] Orig Print D/T: S: 08/31/2018 (4) CTDI: DLP: PAGE 1 Signed Report B-TYPE NATRIURETIC [id number] 22:06:00* Test Item Value Reference Range Comments B-TYPE NATRIURETIC PEPTIDE (test code=BNP) 71.32 pgram/mL 0-100 Has Patient received Natrecor? NOC REACTIVE [id number] 22:01:00* Test Item Value Reference Range Comments C REACTIVE PROTEIN (test code=CRP) 2.07 mg/dL 0-0.3 PROTHROMBIN [id number] 22:00:00* Test Item Value Reference Range Comments PROTHROMBIN TIME PATIENT (test code=PTP) 10.7 seconds 9.0-14.0 INTERNATIONAL NORMAL RATIO (test code=INR) 0.9 0.8-1.2 The therapeutic range for oral anticoagulant therapy formost indications is an international normalized ratio (INR)of between 2.0 and 3.0. The recommended therapeutic INRrange for various clinical situations is listed below: Clinical Situation INR range Pulmonary e mbolism treatment (2.0-3.0)Venous thrombosis treatmentVenous thrombosis prophylaxis (high risk surgery)Prevention of systemic embolism from: Acute myocardial infarction Valvular heart disease Atrial fibrillation Mechanical prosthetic heart valves (2.5-3.5) IS PATIENT ON ANTICOAGULANTS? NTHROMBOPLASTIN TIME [id number] 22:00:00* Test Item Value Reference Range Comments THROMBOPLASTIN TIME PARTIAL (test code=PTT) 23.0 seconds 25.0-36.5 IS PATIENT ON ANTICOAGULANTS? [id number] 22:00:00* Test Item Value Reference Range Comments TROPONIN-I (test code=TROPI) <0.015 ng/mL 0-0.045 COMPREHENSIVE METABOLIC [id number] 21:57:00* Test Item Value Reference Range Comments SODIUM (test code=NA) 139 mmol/L 136-145 POTASSIUM (test code=K) 4.8 mmol/L 3.5-5.1 CHLORIDE (test code=CL) 108.0 mmol/L 98-107 CARBON DIOXIDE (test code=CO2) 23.0 mmol/L 21-32 ANION GAP (test code=GAP) 12.8 10-20 GLUCOSE (test code=GLU) 208 mg/dL 74-106 BLOOD UREA NITROGEN (test code=BUN) 68 mg/dL 7-18 GLOMERULAR FILTRATION RATE (test code=GFR) 11 mL/min >=60 Estimated GFR by using Modified MDRD formula.Chronic kidney disease is defined as either kidney damageor GFR <60 mL/min/1.73 m2 for >3 months. CREATININE (test code=CREAT) 5.40 mg/dL 0.7-1.3 BUN/CREATININE RATIO (test code=BUN/CREA) 12.7 10-20 TOTAL PROTEIN (test code=PROT) 7.8 gram/dL 6.4-8.2 ALBUMIN (test code=ALB) 3.2 g/dL 3.4-5.0 GLOBULIN (test code=GLOB) 4.6 gram/dL 2.7-4.2 ALBUMIN/GLOBULIN RATIO (test code=A/G) 0.7 0.75-1.50 CALCIUM (test code=CA) 8.5 mg/dL 8.5-10.1 BILIRUBIN TOTAL (test code=BILT) 0.30 mg/dL 0.0-1.0 SGOT/AST (test code=AST) 19 IUnit/L 15-37 SGPT/ALT (test code=ALT) 20 IUnit/L 12-78 ALKALINE PHOSPHATASE TOTAL (test code=ALKP) 83 IUnit/L 45-117 Note change in reference range due to change in reagent. LACTIC [id number] 21:52:00* Test Item Value Reference Range Comments LACTIC ACID (test code=LACT) 1.5 mmol/L 0.4-1.9 COMPREHENSIVE METABOLIC [id number] 21:50:00* Test Item Value Reference Range Comments SODIUM (test code=NA) 139 mmol/L 136-145 POTASSIUM (test code=K) 4.8 mmol/L 3.5-5.1 CHLORIDE (test code=CL) 108.0 mmol/L 98-107 CARBON DIOXIDE (test code=CO2) mmol/L 21-32 ANION GAP (test code=GAP) 10-20 GLUCOSE (test code=GLU) mg/dL 74-106 BLOOD UREA NITROGEN (test code=BUN) mg/dL 7-18 GLOMERULAR FILTRATION RATE (test code=GFR) mL/min >=60 CREATININE (test code=CREAT) mg/dL 0.7-1.3 BUN/CREATININE RATIO (test code=BUN/CREA) 10-20 TOTAL PROTEIN (test code=PROT) gram/dL 6.4-8.2 ALBUMIN (test code=ALB) g/dL 3.4-5.0 GLOBULIN (test code=GLOB) gram/dL 2.7-4.2 ALBUMIN/GLOBULIN RATIO (test code=A/G) 0.75-1.50 CALCIUM (test code=CA) mg/dL 8.5-10.1 BILIRUBIN TOTAL (test code=BILT) mg/dL 0.0-1.0 SGOT/AST (test code=AST) IUnit/L 15-37 SGPT/ALT (test code=ALT) IUnit/L 12-78 ALKALINE PHOSPHATASE TOTAL (test code=ALKP) IUnit/L 45-117 CBC W/AUTO [id number] 21:40:00* Test Item Value Reference Range Comments WHITE BLOOD CELL (test code=WBC) 9.4 K/mm3 4.5-12.5 RED BLOOD CELL (test code=RBC) 3.93 mill/mm3 4.0-5.8 HEMOGLOBIN (test code=HGB) 12.1 gram/dL 13.0-17.5 HEMATOCRIT (test code=HCT) 36.2 % 42.0-52.0 MEAN CELL VOLUME (test code=MCV) 92.1 fL 80-98 MEAN CELL HGB (test code=MCH) 30.8 picogram 27.0-33.0 MEAN CELL HGB CONCETRATION (test code=MCHC) 33.4 gram/dL 33.0-36.0 RED CELL DISTRIBUTION WIDTH (test code=RDW) 12.7 % 11.6-16.2 RED CELL DISTRIBUTION WIDTH SD (test code=RDW-SD) 42.7 fL 37.0-51.0 PLATELET COUNT (test code=PLT) 190 K/mm3 150-450 MEAN PLATELET VOLUME (test code=MPV) 9.2 fL 6.7-11.0 NEUTROPHIL % (test code=NT%) 33.0 % 39.0-69.0 IMMATURE GRANULOCYTE % (test code=IG%) 0.2 % 0.0-5.0 LYMPHOCYTE % (test code=LY%) 53.9 % 25.0-55.0 MONOCYTE % (test code=MO%) 6.8 % 0.0-10.0 EOSINOPHIL % (test code=EO%) 5.4 % 0.0-5.0 BASOPHIL % (test code=BA%) 0.7 % 0.0-1.0 NUCLEATED RBC % (test code=NRBC%) 0.0 % 0-0 NEUTROPHIL # (test code=NT#) 3.10 K/mm3 1.8-7.7 IMMATURE GRANULOCYTE # (test code=IG#) 0.02 x10 3/uL 0-0.03 LYMPHOCYTE # (test code=LY#) 5.08 K/mm3 1.0-5.0 MONOCYTE # (test code=MO#) 0.64 K/mm3 0-0.8 EOSINOPHIL # (test code=EO#) 0.51 K/mm3 0.0-0.5 BASOPHIL # (test code=BA#) 0.07 K/mm3 0.0-0.2 NUCLEATED RBC # (test code=NRBC#) 0.00 K/mm3 0.0-0.1 - XR CHEST 2 [id number] 21:24:00 FAX: Juvenal Holloway MD [phone] Jones: St: ADM Name: SYEDA RUSHING [facility] : [birth year] Age/S: 47/M [address] Unit #: [id number] Loc: [address] [place] [address] Phys: Juvenal Forde MD Acct: [id number] Dis Date: Status: ADM IN PHONE #: [phone] Exam Date: 08/31/20182107 FAX #: [phone] Reason: HTN EXAMS: CPT CODE: [id number] XR CHEST 2 V 54784 EXAM: Chest x-ray, 2 views; INFORMATION: A potential, end-stage renal disease; FINDINGS: Lungs are clear; no infiltrates, no edema; no effusions, no pneum othorax. Unremarkable cardiac mediastinal silhouette. Well-positione d right tunneled hemodialysis catheter. Its tip is at the SVC/right atrial junction. IMPRESSION: No evidence of active cardiopulmo nary disease. at 2123 Reported and signed by: Greg Dykes M.D. CC: Juvenal Forde MD Technologist: EMERSON HERNANDEZ Trnscrd Date/Time/By: 08/31/2018 (2123) : By: VilmaW Orig Print D/T: S: 08/31/2018 (2126) PAGE 1 Signed Report
[2019-02-04 21:56] LABS: BASOPHILS # (AUTO) 0.1 (0.0-0.1); BASOPHILS % 0.8 % (0.0-1.0); EOSINOPHILS # (AUTO) 0.6 (0.0-0.4); EOSINOPHILS % 5.1 % (0.0-6.0); HEMATOCRIT 34.9 % (38.2-49.6); HEMOGLOBIN 11.7 g/dL (14.0-18.0); LYMPHOCYTES # (AUTO) 6.2 (1.0-3.2); LYMPHOCYTES % 54.9 % (18.0-39.1); MEAN CORPUSCULAR HGB CONC 33.5 g/dL (31-35); MEAN CORPUSCULAR VOLUME 89.5 fL (81-99); MONOCYTES # (AUTO) 0.8 (0.2-0.8); MONOCYTES % 6.8 % (4.4-11.3); NEUTROPHILS # (AUTO) 3.6 (2.1-6.9); NEUTROPHILS % 32.1 % (38.7-80.0); PLATELET COUNT 126 x10e3/uL (140-360); RED CELL DISTRIBUTION WIDTH 13.1 % (11.7-14.4)
[2019-02-04 22:14] LABS: ALBUMIN 3.3 g/dL (3.5-5.0); ALBUMIN/GLOBULIN RATIO 0.9 (0.8-2.0); ANION GAP 19.8 mmol/L (8-16); CALCIUM 8.7 mg/dL (8.4-10.2); CREATININE, SERUM 7.74 mg/dL (0.72-1.25)
[2019-02-04 22:16] LABS: POTASSIUM 6.8 mmol/L (3.5-5.1)
[2019-02-04] MEDS ORDERED: DEXTROSE 50% SYRINGE 50 ML IV STA (22:18)
[2019-02-04] MEDS ORDERED: CALCIUM CHLORIDE 10% 1.36 MEQ/ML 10ML SYR IV STA (22:18)
[2019-02-04] MEDS ORDERED: SODIUM BICARBONATE 8.4% INJ 50 ML SYR IV STA (22:18)
[2019-02-04] MEDS ORDERED: SOD POLYSTYRENE SULFONATE SUSP 15 GM/60 ML BTL PO ONE (22:30)
[2019-02-04] MEDS ORDERED: INSULIN REGULAR, HUMAN 100 UNIT/1 ML 3ML VIAL IV ONE (22:30)
[2019-02-04] MEDS ORDERED: DEXTROSE 50% SYRINGE 50 ML IV PRN (23:15)
[2019-02-04] MEDS ORDERED: SODIUM CHLORIDE FLUSH 10 ML SYR INJ PRN (23:15)
[2019-02-04] MEDS ORDERED: ONDANSETRON HCL INJ 2MG/ML 2ML 2 MG/ML VIAL IV PRN (23:15)
[2019-02-04] MEDS ORDERED: SODIUM CHLORIDE 0.9% 50ML 50 ML ONE (23:21)
[2019-02-04] MEDS ORDERED: SODIUM CHLORIDE 0.9% 1000ML 2,000 ML ONE (23:34)
--- NOTE | 2019-02-04 23:43 | NUR ---
pt to restroom for bm, states cannot hold it long enough for me to give him bicarb insulin d50. will press call hayes upon return to room
--- OUTSIDE RECORDS SUMMARY | 2019-02-04 23:56 | XMS REPORT | Clinical Summary ---
Author Author [facility] Address Unknown Phone Unavailable Care Team Providers Care Extension Edger Name Role Phone Juvenal Forde MD PCP [...] more information, angela melton contact: Samy Duran [address] [place] [address]
--- NOTE | 2019-02-05 | NUR ---
MOVED TO ROOM 10 FOR DIALYSIS SETUP
--- NOTE | 2019-02-05 00:07 | Diagnostic Imaging Report ---
EXAMINATION: CHEST SINGLE (NOT PORTABLE) INDICATION: concern for hypervolemia COMPARISON: None FINDINGS: AP view TUBES and LINES: Right IJ central venous catheter, with distal tip in the cavoatrial junction.. LUNGS: Lungs are well inflated. Lungs are clear. There is no evidence of pneumonia or pulmonary edema. Mild central pulmonary vascular prominence. PLEURA: No pleural effusion or pneumothorax. HEART AND MEDIASTINUM: The cardiomediastinal silhouette is unremarkable. BONES AND SOFT TISSUES: No acute osseous lesion. Soft tissues are unremarkable. UPPER ABDOMEN: No free air under the diaphragm. IMPRESSION: Mild central pulmonary vascular congestion, otherwise no evidence of volume overload. Signed by: Andrey Ramirez DO on 02/05/2019 12:04 AM
--- NOTE | 2019-02-05 01:08 | NUR ---
BP DROPPED 70/47, 85/55. DR QUIJANO ORDERED MIDODRINE 10MG PO, MEDICATED PER ORDERS. DIALYSIS NURSE STATES REMOVED 650ML UP TO THIS POINT.
[2019-02-05] MEDS ORDERED: MIDODRINE HCL 5 MG TABLET ONE ×2 (01:10)
[2019-02-05] MEDS ORDERED: MIDODRINE 2.5 MG TAB PO ONE (01:15)
--- NOTE | 2019-02-05 05:47 | NUR ---
PT'S SPOUSE AT , STATES WAS NOT INFORMED OF ADMISSION STATUS; INFORMED THAT PATIENT WAS INFORMED WHEN SPOUSE WAS NOT AT FACILITY. VERIFIED WITH PATIENT WITH PRESENT.
[2019-02-05 05:48] LABS: BASOPHILS # (AUTO) 0.1 (0.0-0.1); BASOPHILS % 0.6 % (0.0-1.0); EOSINOPHILS # (AUTO) 0.5 (0.0-0.4); EOSINOPHILS % 4.3 % (0.0-6.0); HEMATOCRIT 30.3 % (38.2-49.6); HEMOGLOBIN 10.4 g/dL (14.0-18.0); LYMPHOCYTES # (AUTO) 4.7 (1.0-3.2); LYMPHOCYTES % 43.7 % (18.0-39.1); MEAN CORPUSCULAR HGB CONC 34.3 g/dL (31-35); MEAN CORPUSCULAR VOLUME 87.3 fL (81-99); MONOCYTES # (AUTO) 0.8 (0.2-0.8); MONOCYTES % 7.8 % (4.4-11.3); NEUTROPHILS # (AUTO) 4.6 (2.1-6.9); NEUTROPHILS % 42.9 % (38.7-80.0); PLATELET COUNT 113 x10e3/uL (140-360); RED BLOOD COUNT 3.47 x10e6/uL (4.3-5.7); RED CELL DISTRIBUTION WIDTH 13.2 % (11.7-14.4)
[2019-02-05 06:16] LABS: ALBUMIN 2.9 g/dL (3.5-5.0); ALBUMIN/GLOBULIN RATIO 0.9 (0.8-2.0); ANION GAP 15.7 mmol/L (8-16); CREATININE, SERUM 5.39 mg/dL (0.72-1.25); POTASSIUM 3.7 mmol/L (3.5-5.1)
[2019-02-05 06:33] LABS: CALCIUM 6.1 mg/dL (8.4-10.2)
--- NOTE | 2019-02-05 06:59 | NUR ---
REPORT TO RADHA CHOE
[2019-02-05] MEDS: INSULIN REGULAR, HUMAN 100 UNIT/1 ML 3ML VIAL SQ SCH ×4 (07:41→21:00)
[2019-02-05] MEDS ORDERED: LORAZEPAM INJ 2 MG/ML VIAL IV PRN (10:45)
[2019-02-05] MEDS ORDERED: MORPHINE SULFATE INJ 4 MG/ML INJ 1ML IV PRN (10:45)
[2019-02-05] MEDS ORDERED: KETOROLAC TROMETHAMINE 30 MG/ML VIAL IV PRN (10:45)
[2019-02-05] MEDS ORDERED: ACETAMINOPHEN 325 MG TAB PO PRN (10:45)
[2019-02-05] MEDS: HYDROCODONE/APAP 5MG-325MG TAB PO PRN ×2 (10:56→21:28)
[2019-02-05] MEDS: CIPROFLOXACIN 400 MG/D5W 200ML 200 ML IV SCH ×2 (12:10→23:24)
--- NOTE | 2019-02-05 13:01 | Diagnostic Imaging Report ---
EXAM: CT Abdomen and Pelvis WITHOUT intravenous contrast INDICATION: Nausea, vomiting COMPARISON: None. TECHNIQUE: Abdomen and pelvis were scanned utilizing a multidetector helical scanner from the lung base to the pubic symphysis without administration of IV contrast. Coronal and sagittal reformations were obtained. IV CONTRAST: None ORAL CONTRAST: Water COMPLICATIONS: None RADIATION DOSE: Total DLP: 907.2 mGy*cm Dose modulation, iterative reconstruction, and/or weight based adjustment of the mA/kV was utilized to reduce the radiation dose to as low as reasonably achievable. FINDINGS: LOWER THORAX: No lung base consolidation. Atherosclerotic coronary artery calcifications. HEPATOBILIARY: No focal liver lesion. Status post cholecystectomy. SPLEEN: No splenomegaly. PANCREAS: No focal masses or ductal dilatation. ADRENALS: No adrenal nodules. KIDNEYS/URETERS: No hydronephrosis, stones, or solid mass lesions. PELVIC ORGANS/BLADDER: Unremarkable. PERITONEUM / RETROPERITONEUM: No free air or fluid. LYMPH NODES: No lymphadenopathy. VESSELS: Atherosclerotic calcifications of the nonaneurysmal abdominal aorta and major branches. GI TRACT: Colonic diverticulosis with no CT evidence of diverticulitis. Normal appendix. The stomach is fluid-filled and distended. Postoperative changes of small bowel anastomosis. No evidence of bowel obstruction. BONES AND SOFT TISSUES: Lower abdominal incisional hernia containing a loop of small bowel. No acute osseous injury. No suspicious lytic or blastic lesions. Mild degenerative changes of the visualized spine. Bone island in the right femoral head. IMPRESSION: Fluid-filled and distended stomach. No evidence of bowel obstruction. Diverticulosis with no CT evidence of diverticulitis. Lower abdominal incisional hernia containing a loop of small bowel. Signed by: Cesar Simpson MD on 02/05/2019 12:58 PM
--- NOTE | 2019-02-05 13:16 | NUR ---
PATIENT PLACED ONTO HOSPITAL BED
[2019-02-05 14:26] LABS: ANION GAP 15.2 mmol/L (8-16); CREATININE, SERUM 5.78 mg/dL (0.72-1.25); POTASSIUM 4.2 mmol/L (3.5-5.1)
[2019-02-05 14:28] LABS: CALCIUM 6.7 mg/dL (8.4-10.2)
[2019-02-05] MEDS: METRONIDAZOLE 500MG/NS 100ML 100 ML IV SCH ×2 (15:07→21:27)
--- NOTE | 2019-02-05 17:35 | Consultation ---
DATE OF CONSULTATION: Renal Consultation HISTORY OF PRESENT ILLNESS: Thank you for the consult. Mr. Adrian is well known patient of mine, 48-year-old male patient with past medical history significant for end-stage renal disease, hemodialysis Friday, Friday, Friday at [facility] under my care. The patient has a long history of noncompliance with medical advice and medical treatments, misses several dialysis treatments, missed at least a week of dialysis presented over to the emergency room at [facility] with shortness of breath, worsening uremic symptoms, found to have a potassium of 6.8, had urgent dialysis last night early, this morning and is also due for dialysis again today per his Friday, Friday, Friday schedule. His repeat potassium was better. No nausea. No vomiting. No chest pain. No fever. No chills. No abdominal pain. No other symptoms. PAST MEDICAL HISTORY: End-stage renal disease, history of hypertension, and history of diabetes mellitus type 2. ALLERGIES: NO KNOWN DRUG ALLERGIES. SOCIAL HISTORY: No tobacco. No alcohol use. FAMILY HISTORY: Noncontributory. REVIEW OF SYSTEMS: See HPI, otherwise all systems negative. MEDICATIONS: Have been reviewed per chart. PHYSICAL EXAMINATION: VITAL SIGNS: Blood pressure is 149/78, 17 respirations, pulse 98, afebrile. HEENT: No cervical lymphadenopathy. NECK: Supple without masses. No obvious JVD. Moist appearing oral mucosa. SKIN: Moist with good skin turgor. CHEST: Chest wall with good expansion. No chest wall tenderness. LUNGS: Clear to auscultation bilaterally. CARDIOVASCULAR: S1 and S2. No obvious rubs, gallop, or murmur. ABDOMEN: Soft. Positive bowel sounds. Nontender. No organomegaly. EXTREMITIES: Evidence of 1 to 2+ edema. No clubbing. No cyanosis. NEUROLOGIC: Awake, alert, and oriented x3. Grossly nonfocal exam. LABORATORY DATA: H and H are 10.4 and 30.3. Chemistries; potassium 3.7, BUN 65, creatinine 5.39, initially potassium was 6.8. Calcium was 6.1, however, these are post dialysis labs including the potassium of 3.7. IMPRESSION AND PLAN: 1. End-stage renal disease. Continue dialysis Friday, Friday, Friday. 2. Hypertension. Blood pressure is currently controlled. 3. Anemia of chronic disease, stable. 4. Hyperkalemia has resolved likely after 2 hours of urgent dialysis on low-potassium bath. We will recheck labs and make further recommendations. Thank you once again for consult. Shahzad Hall MD TH/MODL /[id number] cc: Howie Godinez MD
[2019-02-05 18:14] VITALS: BP 148/86
[2019-02-05 18:32] VITALS: BP 148/86
[2019-02-05 18:35] VITALS: BP 148/86
--- NOTE | 2019-02-05 19:40 | NUR ---
Received patient from day nurse, patient is alert and oriented, safety and fall precautions maintained as per hospital protocol: bed in lowest postion and locked, needed items beside bed, call hayes close to patient and patient instructed to use it to call nurses for any assistance needed, patient verbalized understanding. patient is currently stable will continue to monitor.Dialysis in progress
[2019-02-05 20:54] VITALS: BP 173/95
[2019-02-05 21:00] VITALS: BP 173/95
[2019-02-05] MEDS ORDERED: SODIUM CHLORIDE 0.9% 250ML 250 ML ONE (21:38)
--- NOTE | 2019-02-05 21:45 | NUR ---
Dialysis completed, dialysis nurse reported 2L removed
[2019-02-06] VITALS (9 sets, daily range): BP systolic 132–178; BP diastolic 67–95
--- NOTE | 2019-02-06 04:17 | NUR ---
Patient refusing teleGlen made aware.
[2019-02-06] MEDS: PANTOPRAZOLE 40 MG 10ML VIAL IV SCH ×2 (05:19→17:00)
[2019-02-06] MEDS: METRONIDAZOLE 500MG/NS 100ML 100 ML IV SCH ×3 (05:19→21:14)
--- NOTE | 2019-02-06 06:55 | NUR ---
Patient endorsed to next shift for continuity of care.
[2019-02-06 06:59] LABS: ANION GAP 15.4 mmol/L (8-16); CALCIUM 7.9 mg/dL (8.4-10.2); CREATININE, SERUM 4.53 mg/dL (0.72-1.25); POTASSIUM 4.4 mmol/L (3.5-5.1)
[2019-02-06 07:01] LABS: BASOPHILS # (AUTO) 0.1 (0.0-0.1); BASOPHILS % 0.7 % (0.0-1.0); EOSINOPHILS # (AUTO) 0.3 (0.0-0.4); EOSINOPHILS % 3.6 % (0.0-6.0); HEMATOCRIT 31.3 % (38.2-49.6); HEMOGLOBIN 10.8 g/dL (14.0-18.0); LYMPHOCYTES # (AUTO) 4.9 (1.0-3.2); LYMPHOCYTES % 52.6 % (18.0-39.1); MEAN CORPUSCULAR HEMOGLOBIN 29.9 pg (28-32); MEAN CORPUSCULAR HGB CONC 34.5 g/dL (31-35); MEAN CORPUSCULAR VOLUME 86.7 fL (81-99); MONOCYTES # (AUTO) 0.6 (0.2-0.8); MONOCYTES % 6.6 % (4.4-11.3); NEUTROPHILS # (AUTO) 3.4 (2.1-6.9); NEUTROPHILS % 36.1 % (38.7-80.0); PLATELET COUNT 110 x10e3/uL (140-360); RED BLOOD COUNT 3.61 x10e6/uL (4.3-5.7); RED CELL DISTRIBUTION WIDTH 12.7 % (11.7-14.4)
[2019-02-06 07:10] LABS: B-TYPE NATRIURETIC PEPTIDE2 177.8 pg/mL (0-100)
[2019-02-06 07:23] LABS: FREE T4 (FREE THYROXINE) 0.86 ng/dL (0.8-1.8); THYROID STIMULATING HORMONE 1.257 uIU/mL (0.350-4.940)
[2019-02-06] MEDS: INSULIN REGULAR, HUMAN 100 UNIT/1 ML 3ML VIAL SQ SCH ×4 (07:30→21:09)
--- NOTE | 2019-02-06 07:31 | NUR ---
Spoke with Dr. Hall at this time to verify orders for dialysis. Dr. Hall states no dialysis treatment necessary until Friday. Called the dialysis nurse to let her know.
[2019-02-06] MEDS ORDERED: CIPROFLOXACIN500 MG PO (08:05)
[2019-02-06] MEDS ORDERED: PROTONIX40 MG/ML PO (08:05)
[2019-02-06] MEDS ORDERED: LORAZEPAM0.5 MG PO (08:05)
[2019-02-06] MEDS ORDERED: VANCOMYCIN PO (08:05)
[2019-02-06] MEDS ORDERED: METRONIDAZOLE500 MG PO (08:05)
[2019-02-06] MEDS ORDERED: DICYCLOMINE HCL20 MG PO (08:05)
[2019-02-06] MEDS: DICYCLOMINE HCL 20 MG TAB PO SCH ×4 (09:04→20:28)
[2019-02-06] MEDS: PANTOPRAZOLE SOD 40 MG TABEC PO SCH (09:04)
[2019-02-06] MEDS: HYDROCODONE/APAP 5MG-325MG TAB PO PRN ×2 (09:11→20:40)
[2019-02-06] MEDS ORDERED: TEMAZEPAM15 MG PO (10:44)
[2019-02-06] MEDS ORDERED: SOMA350 MG PO (10:44)
[2019-02-06] MEDS ORDERED: LANTUS 3ML100 UNITS/ SC (10:44)
[2019-02-06] MEDS ORDERED: DIALYVITE 8000.8 M1 PO (10:44)
[2019-02-06] MEDS ORDERED: OMEPRAZOLE40 MG PO (10:44)
[2019-02-06] MEDS ORDERED: LOSARTAN-HCTZ1 EACH PO (10:44)
[2019-02-06] MEDS ORDERED: METOPROLOL SUCC25 MG PO (10:44)
[2019-02-06] MEDS ORDERED: NOVOLOG100 UNITS1 (10:44)
[2019-02-06] MEDS ORDERED: RENAGEL800 MG PO (10:44)
[2019-02-06] MEDS ORDERED: WELLBUTRIN SR150 MG PO (10:44)
[2019-02-06] MEDS ORDERED: CITALOPRAM HBR20 MG PO (10:44)
[2019-02-06] MEDS ORDERED: NORCO 7.5-3251 EACH PO (10:44)
[2019-02-06] MEDS ORDERED: PERCOCET 7.5-31 EACH PO (10:44)
[2019-02-06] MEDS ORDERED: GABAPENTIN400 MG PO (10:44)
[2019-02-06] MEDS: CIPROFLOXACIN 400 MG/D5W 200ML 200 ML IV SCH ×2 (11:22→23:00)
--- NOTE | 2019-02-06 12:05 | NUR ---
Patient notified me that IV site is "hurting and burning." Site is infiltrated. Patient refusing to let me initiate new PIV site. Physician made aware. Antibiotics not administered due to no PIV site.
--- NOTE | 2019-02-06 16:00 | NUR ---
Took stool sample to lab. Lab rejected sample. Patient aware that we need another sample. Also made physician aware. Physician stated to attempt to collect another sample.
--- NOTE | 2019-02-06 16:31 | NUR ---
Nutrition Screen Note RD Recommendation for Physician: 1.Change current diet to Renal Diabetic Diet Plan of Care: RD following, monitoring for tolerance and adequacy Nutrition reason for involvement: Nutrition Risk Trigger Primary Diagnose(s): ESRD, Hyperkalemia PMH: End-stage renal disease, history of hypertension, and history of diabetes mellitus type 2. Ht: 70in Wt: 246lbs BMI: 33.35kg/m2 IBW:178lbs RD Assessment: (02/06/) 48 y/o M admitted the emergency room with SOB, worsening uremic symptoms, and potassium of 6.8. Per pt, patient receives hemodialysis Friday, Friday, Friday at [facility]. Per MD note, pt has a long history of noncompliance with medical advice and medical treatments. Patient sleeping during time of visit, and was woken by fikeyla for nutrition consult. Per pt, has received dietary education in the past regarding renal ESRD diet. Pt and were able to recall potassium rich foods. Reportedly adhering to renal diet at home, and noted good appetite and intake. Denied any significant weight changes, N/V/D/C or difficulties chewing/swallowing. Will continue to monitor and follow as needed. (02/06) Chart reviewed. Labs and meds reviewed. Current Diet: ADA Diet Malnutrition Evaluation (02/06) The patient does not meet criteria for a specified degree of malnutrition at this time. Will re-evaluate at follow-up as appropriate. Diet Education Needs Assessment: Diet education indicated, verbal dietary education preformed with patient and fiance at bedside. Learner(s): Patient and fianc Barriers: none Cultural/Language Modifications: none Readiness: acceptance Method: verbal Topics: ESRD diet, potassium rich foods Understanding/Compliance: moderate Nutrition Care Level: LOW Signed: Kierra Ybarra, MS, RDN, LD
--- NOTE | 2019-02-06 17:49 | Progress Note ---
DATE: 02/06/2019 Renal Progress Note SUBJECTIVE: Followed for end-stage renal disease; tolerating dialysis Friday, Friday, and Friday. Missed dialysis treatments for two weeks, had a dialysis treatment also, today he is doing well now. No nausea, no vomiting, no shortness of breath. OBJECTIVE: VITAL SIGNS: Have been noted and are stable. Blood pressure 150/95 and 92 pulse. LUNGS: Clear to auscultation bilaterally. CARDIOVASCULAR: S1, S2. No rub. ABDOMEN: Soft, benign. EXTREMITIES: No edema. LABORATORY DATA: Hemoglobin 10.8. Chemistry; potassium is 4.3, BUN 39, and creatinine 4.5. IMPRESSION AND PLAN: 1. End-stage renal disease. Continue dialysis Friday, Friday, and Friday. 2. Hypertension, stable. 3. Anemia, chronic, stable. From Renal standpoint, can be discharged. The patient had dialysis treatment already. MD SHYANN Peña/ROXANEL /[id number]
--- NOTE | 2019-02-06 19:26 | NUR ---
Patient received sitting up in bed. AAO x 3. Family bedside. Patient had no complaints of pain. No signs of respiratory distress. Patient has no vascular access. Fall precautions implemented. Patient instructed to call for assistance when needed. Call light within reach.
[2019-02-07] VITALS: BP 179/92
[2019-02-07] MEDS ORDERED: METOPROLOL SUCCINATE 25 MG TAB XL PO ONE (00:15)
--- NOTE | 2019-02-07 00:16 | NUR ---
Patient's BP elevated (179/72) with a HR of 94. Priscila Alejo (SANDY) notified. New order received to continue home medication (Metoprolol 25 mg PO Q12).
--- NOTE | 2019-02-07 02:49 | NUR ---
Blood specimen sent to the lab for analysis of Vancomycin trough level. Addendum: 02/07/19 at 0257 by Rene Jc RN Note: Wrong entry for patient.
--- NOTE | 2019-02-07 02:58 | NUR ---
Patient refused blood draw scheduled for 299. Patient stated his right arm hurts s/p removal of IV.
[2019-02-07 04:00] VITALS: BP 166/79
--- NOTE | 2019-02-07 04:21 | NUR ---
Dr. Gisela Tobar here to see patient. wants patient's Endoscopy report faxed from [facility] as patient was "scoped" there recently. Will pass information to oncoming nurse on the Dayshift.
[2019-02-07] MEDS: PANTOPRAZOLE 40 MG 10ML VIAL IV SCH (05:00)
[2019-02-07] MEDS: METRONIDAZOLE 500MG/NS 100ML 100 ML IV SCH (06:00)
--- NOTE | 2019-02-07 06:49 | NUR ---
Shift report given to oncoming nurse.
[2019-02-07] MEDS: INSULIN REGULAR, HUMAN 100 UNIT/1 ML 3ML VIAL SQ SCH (07:30)
--- NOTE | 2019-02-07 07:45 | NUR ---
Patient refused labs being drawn for thew second time stating "I don't need them." Let physician know.
[2019-02-07 07:56] VITALS: BP 159/86
[2019-02-07] MEDS: PANTOPRAZOLE SOD 40 MG TABEC PO SCH (08:49)
[2019-02-07] MEDS: DICYCLOMINE HCL 20 MG TAB PO SCH (08:51)
[2019-02-07] MEDS ORDERED: METOPROLOL SUCCINATE 25 MG TAB XL PO SCH (09:00)
[2019-02-07] MEDS: CIPROFLOXACIN 400 MG/D5W 200ML 200 ML IV SCH (10:33)
--- NOTE | 2019-02-07 10:51 | NUR ---
Patient in no distress. Education completed regarding medication compliance. Also encouraged patient to adhere to dialysis schedule. Patient and patient's fiance both verbalized understanding. Patient has no complaints of pain. Patient in no distress.
--- NOTE | 2019-02-10 04:42 | Discharge Summary ---
ADMISSION DIAGNOSES: 1. Hyperkalemia secondary to missed dialysis treatment. 2. End-stage renal disease with missed dialysis treatment. 3. Hypertension. 4. Type 2 diabetes complicated by end-stage renal disease. 5. Nausea, vomiting, and diarrhea. 6. Hypocalcemia. 7. Anxiety. DISCHARGE DIAGNOSES: Pain plus diverticulosis without evidence of diverticulitis. HISTORY: The patient has a history of type 2 diabetes, hypertension, end-stage renal disease, GERD, anxiety, IBS, and blind in the right eye. SURGICAL HISTORY: Left upper extremity dialysis fistula, colon resection, cholecystectomy, right TMA, and left pinky toe amputation. FAMILY HISTORY: The patient's dad, mom, and brother have diabetes. The patient's dad had a heart attack and a stroke. SOCIAL HISTORY: The patient admits to smoking cigars. HOSPITAL COURSE: A 48-year-old male admitted with complaints of nausea, vomiting, watery diarrhea, and abdominal pain since June 2018. He has had bouts of diarrhea followed by constipation. He complains of right upper quadrant abdominal pain which is sharp and constant. Nothing improves the symptoms and eating worsens the symptoms. He skipped dialysis many times because he did not want to have diarrhea in the dialysis chair. On admission to the ER, his potassium was 6.8. Nephrology was consulted and dialysis ordered. The patient was started on Cipro and Flagyl. Lipase was within normal limits. Chest x-ray showed vascular congestion. CT of the abdomen showed fluid-filled and distended stomach. No evidence of obstruction. Diverticulosis without evidence of diverticulitis. Lower abdominal incisional hernia containing a loop of small bowel. GI was then consulted who started the patient on Bentyl. With the antibiotics and Bentyl, the patient is feeling much better. He had a workup in November for EGD and colonoscopy, which was pretty much negative except for gastritis. These procedures were done at [place]. C diff was ordered, but patient was unable to give a watery sample after the antibiotics were started he only had formed stool, so the patient will be discharged home with Protonix, Flagyl, lorazepam, Bentyl, and Cipro. The patient and understand discharge instructions and agreed to plan. Vital signs, stable. The patient is afebrile. He will follow up with primary care in 1 to [address] Tobar as discussed. Dictated by Vita Mckee, CLIENT SERVICES SPECIALIST MD FREDY Bryant/GRANT /[id number]
== END 2019-02-07 10:51 | disposition home or self-care (01) | DRG 640 ==
LOC: ER 20:30 → ERHOLD 23:53 → MED/SURG2 02-05 17:27
PROVIDERS: ADMIT Internal Medicine; ATTEND Internal Medicine
PROC: 5A1D70Z Performance of Urinary Filtration, Intermittent, Less than 6 Hours Per Day (ICD-10-PCS; principal; 2019-02-05)
DX: E87.5 Hyperkalemia (principal); N18.6 End stage renal disease; I12.0 Hypertensive chronic kidney disease with stage 5 chronic kidney disease or end stage renal disease; K43.0 Incisional hernia with obstruction, without gangrene; E11.22 Type 2 diabetes mellitus with diabetic chronic kidney disease; Z99.2 Dependence on renal dialysis; Z91.15 Patient's noncompliance with renal dialysis; Z79.4 Long term (current) use of insulin; E83.51 Hypocalcemia; F41.9 Anxiety disorder, unspecified; K57.90 Diverticulosis of intestine, part unspecified, without perforation or abscess without bleeding; K21.9 Gastro-esophageal reflux disease without esophagitis; K58.9 Irritable bowel syndrome, unspecified; Z90.49 Acquired absence of other specified parts of digestive tract; Z89.431 Acquired absence of right foot; H54.61 Unqualified visual loss, right eye, normal vision left eye; K29.70 Gastritis, unspecified, without bleeding; D63.8 Anemia in other chronic diseases classified elsewhere
CPT/HCPCS: 36415; 71045; 74176; 80048; 80053; 82948; 83036; 83690; 83735; 83880; 84439; 84443; 85025; 87340; 90962; 93005; 93971; 99284; J1817; J2060; J2405; J7030; J7050; J7799